=== PATIENT | female | born 1950 | race Caucasian/White ===

== ENCOUNTER 2016-11-24 20:48 | Inpatient (IN) | payer MEDICARE, OTHER ==
[~2016-11-24] VITALS: Ht 160 cm; Wt 89.0 kg
[2016-11-24] MEDS ORDERED: ONDANSETRON 4 MG INJ IV ONE (21:00)
[2016-11-24] MEDS ORDERED: HYDROmorphONE 2 MG/ML SYG IV ONE (21:00)
[2016-11-24 21:22] LABS: ADD SCAN DIFF NO
[2016-11-24 21:24] LABS: BASOPHILS % 0.4 % (0.0-2.0); EOSINOPHILS # 0.3 10^3/ul (0.0-0.5); EOSINOPHILS % 3.6 % (0.0-7.0); HEMATOCRIT 36.8 % (37.0-47.0); HEMOGLOBIN 11.4 g/dl (12.0-16.0); LYMPHOCYTES # 2.5 10^3/ul (0.8-2.9); LYMPHOCYTES % 27.5 % (15.0-51.0); MEAN CORPUSCULAR HEMOGLOBIN 19.7 pg (29.0-33.0); MEAN CORPUSCULAR VOLUME 63.4 fl (82.0-101.0); MEAN PLATELET VOLUME 10.6 fl (7.4-10.4); MONOCYTE # 0.6 10^3/ul (0.3-0.9); MONOCYTES % 6.8 % (0.0-11.0); NEUTROPHIL # 5.7 10^3/ul (1.6-7.5); NEUTROPHILS % 61.2 % (39.0-77.0); PLATELET COUNT 290 10^3/UL (140-415); RED CELL DISTRIBUTION WIDTH 15.8 % (11.5-14.5); WHITE BLOOD COUNT 9.3 10^3/ul (4.8-10.8)
[2016-11-24 21:35] LABS: INR 1.01; PROTIME 13.3 Sec (12.2-14.2)
[2016-11-24 21:47] LABS: POTASSIUM 3.3 mmol/L (3.5-5.1)
[2016-11-24 21:49] LABS: CREATININE 1.03 mg/dl (0.44-1.00)
--- NOTE | 2016-11-24 22:02 | RADRPT ---
PROCEDURE: Pelvis x-ray CLINICAL INDICATION: Blunt trauma to the pelvis TECHNIQUE: Single AP view of the pelvis performed. COMPARISON: None FINDINGS: Normal mineralization, architecture and alignment. No fracture or osseous lesion identified. There are no significant degenerative changes. Unremarkable soft tissues. Degenerative changes in the lumbar spine. Mild symmetric degenerative ch anges in the sacroiliac joints. IMPRESSION: No acute fracture or subluxation. RPTAT: [facility] Physician Cynthia Date Time Electronically viewed and signed by David Aguillon Physician on 11/24/2016 22:02 RS/
--- NOTE | 2016-11-24 22:05 | RADRPT ---
PROCEDURE: Left femur CLINICAL INDICATION: Pain status post trauma TECHNIQUE: AP and lateral views COMPARISON: None available FINDINGS: An acute, closed, comminuted oblique fracture of the left proximal to mid femoral diaphysis is prese nt. 100% overriding is present with foreshortening and medial displacement of the more proximal of fracture fragment is noted. The left hip joint is well maintained. The mineralization is normal. M ild joint space narrowing is noted of the patellofemoral, medial and lateral joint compartments. IMPRESSION: 1. Acute, closed, comminuted, oblique fracture of the left proximal to mid femoral diaphysis with f oreshortening and a 100% overriding. 2. Intact left hip joint 3. Mild tricompartmental osteoarthritis of the left knee A call report was made to SHAR Brown at 11/24/2016 10:03:57 PM following the completion of the examination by the undersigned. RPTAT: HDC .Shanon Schafer MD, MD Date Time Electronically viewed and signed by .Shanon Schafer MD, on 11/24/2016 22:05 .C/
--- NOTE | 2016-11-24 22:07 | RADRPT ---
PROCEDURE: XR Chest. CLINICAL INDICATION: Pain status post trauma TECHNIQUE: AP Portable chest. COMPARISON: None available FINDINGS: The soft tissues and bones are remarkable for bilateral acromioclavicular osteoarthropathy and thora cic spondylosis. No focal infiltrates, masses, or effusions are noted. The mediastinum and heart a re normal. No pneumothorax is present. IMPRESSION: 1. No radiographic evidence for acute cardiopulmonary disease. 2. Thoracic spondylosis and bilateral acromioclavicular osteoarthropathy. RPTAT: HDC .Shanon Schafer MD, Date Time Electronically viewed and signed by .Shanon Schafer MD, on 11/24/2016 22:06 .C/
--- NOTE | 2016-11-24 22:19 | ERA ---
ER Documentation Chief Complaint Date/Time DATE: 11/24/16 TIME: 22:15 Chief Complaint S/P FALL HPI 65-year-old female history of hypertension who presents with a mechanical trip and fall. She landed on some bricks along her mid left femur. The patient now has deformity, severe pain, worse with movement. No head trauma or loss of consciousness, no neck pain. No prodrome of chest pain or shortness of breath. ROS All systems reviewed and are negative except as per history of present illness. PMhx/Soc Hx Alcohol Use: No Hx Substance Use: No Hx Tobacco Use: No Smoking Status: Unknown if ever smoked FmHx Family History: No diabetes Physical Exam Vitals Vital Signs Date Time Temp Pulse Resp B/P Pulse Ox O2 Delivery O2 Flow Rate FiO2 11/24/16 20:59 98.1 89 20 164/74 96 Physical Exam Airway is intact Bilateral breath sounds Strong distal pulses No obvious deficits General: Well developed, well nourished, no acute distress Head: Normocephalic, atraumatic Eyes: Pupils equally reactive, EOM intact ENT: Moist mucous membranes Neck: Supple, no lymphadenopathy, No midline tenderness, deformities, step-offs to the cervical spine, full active and passive range of motion without midline pain. Respiratory: Lungs clear bilaterally, no distress, no chest wall tenderness, no crepitus Cardiovascular: RRR, no murmurs, rubs, or gallops Abdominal: Soft, non-tender, non-distended, no peritoneal signs, pelvis is stable : Deferred MSK: Deformity noted to the mid femur, no break in the skin. Soft compartments , 2+ dorsalis pedis and posterior tibial pulses. No tenderness to the mid thoracolumbar spine Neurologic: Alert and oriented, moving all extremities, normal speech, no focal weakness, no cerebellar signs Skin: No ecchymoses or bruising to the chest or abdomen Psych: Normal mood Result Diagram: 11/24/16211411/24/162114 Results 24 hrs Laboratory Tests Test 11/24/16 21:15 Activated Partial Thromboplast Time 24.0Sec Anion Gap 15 Basophils # 0.010^3/ul Basophils % 0.4% Blood Urea Nitrogen 21mg/dl Calcium Level 9.0mg/dl Carbon Dioxide Level 30mmol/L Chloride Level 100mmol/L Creatinine 1.03mg/dl Eosinophils # 0.310^3/ul Eosinophils % 3.6% Glucose Level 100mg/dl Hematocrit 36.8% Hemoglobin 11.4g/dl INR International Normalized Ratio 1.01 Lymphocytes # 2.510^3/ul Lymphocytes % 27.5% Mean Corpuscular Hemoglobin 19.7pg Mean Corpuscular Hemoglobin Concent 31.0g/dl Mean Corpuscular Volume 63.4fl Mean Platelet Volume 10.6fl Monocytes # 0.610^3/ul Monocytes % 6.8% Neutrophils # 5.710^3/ul Neutrophils % 61.2% Nucleated Red Blood Cells # 0.010^3/ul Nucleated Red Blood Cells % 0.0/100WBC Platelet Count 99566^3/UL Potassium Level 3.3mmol/L Prothrombin Time 13.3Sec Prothrombin Time Ratio 1.0 Red Blood Count 5.8010^6/ul Red Cell Distribution Width 15.8% Sodium Level 142mmol/L White Blood Count 9.310^3/ul Current Medications Medications (Trade) Dose Ordered Sig/Jesica Route PRN Reason Start Time Stop Time Status Last Admin Dose Admin Hydromorphone HCl (Dilaudid) 1 mg ONCE ONCE IV 11/24/16 21:00 11/24/16 21:01 DC 11/24/16 21:11 Ondansetron HCl (Zofran Inj) 4 mg ONCE ONCE IV 11/24/16 21:00 11/24/16 21:01 DC 11/24/16 21:12 Ondansetron HCl (Zofran Inj) 4 mg BRIDGE ORDER PRN IV NAUSEA AND/OR VOMITING 11/24/16 22:30 11/25/16 22:29 Acetaminophen (Tylenol Tab) 650 mg ER BRIDGE PRN PO MILD PAIN/FEVER 11/24/16 22:30 11/25/16 22:29 Procedures/MDM EKG, MONITORS, & DIAGNOSTIC IMAGING: EKG: I reviewed and interpreted a 12-lead EKG. Rhythm: Normal sinus rhythm Ectopy: None Intervals: No abnormalities ST segments: No elevations or depressions T waves: No contiguous inversions Chest x-ray: I reviewed and interpreted a 1 view of the chest Mediastinum: No enlargement Cardiac silhouette: No cardiomegaly Airspace: Clear lung nelson bilaterally without evidence of pneumothorax Bones: No evidence of fracture X-ray left femur: I reviewed and interpreted multiple views of the x-ray Bones: Displaced, shortened, overlapping mid femur fracture Soft tissue: No evidence of foreign body LAB INTERPRETATION: No leukocytosis MEDICAL DECISION MAKING: Patient presents with mechanical trip and fall. No head injury. The patient does not meet high-risk criteria and based on NEXUS cervical spine criteria there is no indication for cervical spine imaging at this time. The patient has evidence of a closed left femur fracture. Soft compartments, neurovascularly intact. ER COURSE: Patient has been given pain control medication. The patient was placed in a position of comfort. Difficult immobilization technique given patient's body habitus and location of fracture. At this time the patient has no significant movement when laying still. The patient has been given pain medication she will be admitted for surgical management. Preoperative laboratory testing and diagnostic imaging was initiated. I kept the patient and/or family informed of laboratory and diagnostic imaging results throughout the emergency room course. DISPOSITION PLAN: Medical surgical admission CONSULTATION: Accepting care team and consultations: I discussed the current laboratory data, diagnostic imaging and emergency care provided. Admitting team: Dr. Silverman Admitting team indication: Insurance directed Consulting services: On-call orthopedic surgeon Dr. Danny Rios has been notified. Departure Diagnosis: Primary Impression: Closed left femoral fracture Qualified Code: S72.322A - Closed displaced transverse fracture of shaft of left femur, initial encounter Condition: Stable JASKARAN MYLES MD Nov 24, 2016 22:19
[2016-11-24] MEDS ORDERED: ONDANSETRON 4 MG INJ IV PRN (22:30)
[2016-11-24] MEDS ORDERED: ACETAMINOPHEN 325 MG TAB PO PRN (22:30)
[2016-11-24] MEDS ORDERED: HYDROmorphONE 1 MG/ML SYG IV STA ×2 (22:37→22:39)
[2016-11-24] MEDS ORDERED: HYDROmorphONE 1 MG/ML SYG IV ONE (23:45)
[2016-11-25] VITALS (17 sets, daily range): BP systolic 106–170; BP diastolic 55–88; PULSE 76–106; RESP 7–20; Ht 160 cm; Wt 89.0 kg
[2016-11-25] MEDS ORDERED: ALBUTEROL/IPRATROPIUM (NEB) 3 ML AMP HHN PRN
[2016-11-25] MEDS ORDERED: HYDROCODONE/APAP (5/325) TAB PO PRN
[2016-11-25] MEDS ORDERED: ACETAMINOPHEN 325 MG TAB PO PRN
[2016-11-25] MEDS ORDERED: NA PHOSPHATE/BIPHOS 133 ML ENEMA PR PRN
[2016-11-25] MEDS ORDERED: NITROGLYCERIN (SL) 0.4 MG TAB SL PRN
[2016-11-25] MEDS ORDERED: DOCUSATE SODIUM 100 MG CAP PO PRN
[2016-11-25] MEDS ORDERED: NACL 0.9% 3 ML SYG IV SCH
[2016-11-25] MEDS ORDERED: LORAZEPAM 2 MG INJ IV PRN
[2016-11-25] MEDS: SOD CHLORIDE 0.45% 1,000 ML IV SCH ×2 (00:40→12:40)
[2016-11-25 02:10] LABS: INR 1.02; PROTIME 13.4 Sec (12.2-14.2)
[2016-11-25 02:11] LABS: PARTIAL THROMBOPLASTIN TIME 23.5 Sec (25.0-35.0)
--- NOTE | 2016-11-25 05:06 | HP ---
DATE OF ADMISSION: 11/24/2016 The patient was seen and examined by me on 11/24/2016 at 10:30 p.m. A 65-year-old female. CHIEF COMPLAINT: Status post fall. HISTORY OF PRESENT ILLNESS: A 65-year-old female with past medical history of hypertension who pres ents with status post fall, mechanical trip. Apparently, the patient was at home and landed on some bricks when she fell along her left leg, specifically her left femur. She presented with severe pa in became worse with movement and now it was noted to have a deformity in the emergency room. Denie s any head pain, no loss of consciousness. No neck stiffness. No chest pain or shortness of breath . No upper or lower GI bleeding, no fevers or chills. When she came into the ER today, she had nesha ging study performed, specifically a left femur x-ray that did show acute closed comminuted oblique fracture of the left proximal to mid femoral diaphysis with foreshortening and 100% overriding loose and intact left hip joint however, and mild tricompartmental osteoarthritis of the left knee and th e orthopedic surgeon was contacted in the ER as well to come and evaluate the patient. PAST MEDICAL HISTORY: As stated above. ALLERGIES: NO KNOWN DRUG ALLERGIES. HOME MEDICATIONS: Unknown. PAST SURGICAL HISTORY: Unknown. SOCIAL HISTORY: Negative for smoking, drinking, or IV drug abuse today. PHYSICAL EXAMINATION: VITAL SIGNS: T-max 98.1, pulse 89, respirations 20, blood pressure 164/74, saturating at % zelda m air. GENERAL: The patient is lying in bed, no acute distress. HEENT: Pupils equal, round, and reactive to light. Extraocular muscles intact. NECK: Supple, no thyromegaly. LUNGS: Clear to auscultation bilaterally. CARDIOVASCULAR: S1, S2 heard. No rubs or gallops. ABDOMEN: Soft, nontender, nondistended. Normal bowel sounds. MUSCULOSKELETAL: On the left femur, there is a deformity noted in the mid femur, but no break in th e skin. Pulses are intact. No lower extremity edema bilaterally. NEUROLOGIC: No focal deficits. LABORATORIES: CBC is normal. Basic metabolic panel shows sodium 142, potassium 3.3, chloride 100, CO2 30, BUN 21, creatinine 1.03, glucose 100. Free T4 is normal. Coags are essentially normal. In addition to the images mentioned above, there was a chest x-ray that was no radiographic evidence f or any acute cardiopulmonary disease. Pelvic x-ray showed no acute fractures or subluxation. ASSESSMENT AND PLAN: A 65-year-old female status post mechanical fall with left femur fracture. 1. Left hip pain secondary to left femur fracture after falling down at home, mechanical fall. We will admit the patient to med/surg floor, keep her n.p.o., give her IV fluids, check TSH, A1c, lipid panel, pain control medication of [place] and morphine p.r.n. Will get orthopedic surgery consult. Discussed the options of surgical care versus conservative treatment. 2. Hypertension. Blood pressure stable. Continue hydralazine p.r.n. 3. Gastrointestinal prophylaxis, proton pump inhibitor. 4. Deep vein thrombosis prophylaxis, heparin subQ. Will also get physical therapy and occupational therapy consults. Dictated By: CLYDE TINOCO Conf#: [id number] DID#: [id number]
[2016-11-25 05:44] LABS: CHOL/HDL RATIO 4.6 RATIO
[2016-11-25 05:45] LABS: ADD SCAN DIFF NO
[2016-11-25] MEDS ORDERED: PANTOPRAZOLE 40 MG INJ IV SCH (06:00)
[2016-11-25 06:11] LABS: THYROID STIMULATING HORMONE 4.22 MIU/L (0.465-4.680)
[2016-11-25 06:29] LABS: ABNORMAL IP MESSAGE 1; BASOPHIL # 0.1 10^3/ul (0.0-0.1); BASOPHILS % 0.5 % (0.0-2.0); EOSINOPHILS # 0.1 10^3/ul (0.0-0.5); EOSINOPHILS % 0.6 % (0.0-7.0); HEMATOCRIT 34.3 % (37.0-47.0); HEMOGLOBIN 10.4 g/dl (12.0-16.0); LYMPHOCYTES # 1.8 10^3/ul (0.8-2.9); LYMPHOCYTES % 17.6 % (15.0-51.0); MEAN CORPUSCULAR HEMOGLOBIN 19.5 pg (29.0-33.0); MEAN CORPUSCULAR HGB CONC 30.3 g/dl (32.0-37.0); MEAN CORPUSCULAR VOLUME 64.2 fl (82.0-101.0); MEAN PLATELET VOLUME 11.4 fl (7.4-10.4); MONOCYTE # 0.8 10^3/ul (0.3-0.9); MONOCYTES % 7.7 % (0.0-11.0); NEUTROPHIL # 7.3 10^3/ul (1.6-7.5); NEUTROPHILS % 73.2 % (39.0-77.0); PLATELET COUNT 274 10^3/UL (140-415); RED BLOOD COUNT 5.34 10^6/ul (4.20-5.40); WHITE BLOOD COUNT 9.9 10^3/ul (4.8-10.8)
[2016-11-25 06:36] LABS: POTASSIUM 3.8 mmol/L (3.5-5.1)
[2016-11-25 06:39] LABS: CREATININE 0.99 mg/dl (0.44-1.00)
[2016-11-25 06:40] LABS: CALCIUM 8.7 mg/dl (8.4-10.2); MAGNESIUM 1.9 mg/dl (1.7-2.5); PHOSPHORUS 5.4 mg/dl (2.5-4.9)
[2016-11-25] MEDS ORDERED: SEVOFLURANE 15 MIN ONE (07:00)
[2016-11-25] MEDS ORDERED: CEFAZOLIN 1 GM INJ ONE (07:00)
[2016-11-25] MEDS ORDERED: HEPARIN 5,000 UNIT/0.5 ML SYG SC SCH (09:00)
[2016-11-25] MEDS: morphine 2 MG INJ IV PRN ×5 (09:26→23:33)
--- NOTE | 2016-11-25 12:07 | PN ---
Date/Time of Note Date/Time of Note DATE: 11/25/16 TIME: 12:04 Assessment/Plan VTE Prophylaxis VTE Prophylaxis Intervention: heparin Lines/Catheters IV Catheter Type (from Nrsg): Saline Lock Urinary Cath still in place: Yes Reason Cath still needed: other (indicate) (hip fracture ) Assessment/Plan Assessment/Plan 1. Left hip pain secondary to left femur fracture after falling down at home, mechanical fall. pt is medically cleared to have surgery, no h/o CAD, no h/o stroke ,will order CXR and EKG for pre op 2. Hypertension. Blood pressure stable. Continue hydralazine p.r.n. 3. Gastrointestinal prophylaxis, proton pump inhibitor. 4. Deep vein thrombosis prophylaxis, heparin subQ. Will also get physical therapy and occupational therapy consults after ortho evaluation Subjective 24 Hr Interval Summary Free Text/Dictation pt stable, awaiting orthopedic evaluation Exam/Review of Systems Vital Signs Vitals Vital Signs Date Time Temp Pulse Resp B/P Pulse Ox O2 Delivery O2 Flow Rate FiO2 11/25/16 07:43 98.0 79 16 157/67 99 Room Air 11/25/16 00:15 2.0 Intake and Output 11/24/16 11/24/16 11/25/16 15:00 23:00 07:00 Intake Total 300 ml Output Total 500 ml Balance -200 ml Exam GENERAL: The patient is lying in bed, no acute distress. HEENT: Pupils equal, round, and reactive to light. Extraocular muscles intact. NECK: Supple, no thyromegaly. LUNGS: Clear to auscultation bilaterally. CARDIOVASCULAR: S1, S2 heard. No rubs or gallops. ABDOMEN: Soft, nontender, nondistended. Normal bowel sounds. MUSCULOSKELETAL: On the left femur, there is a deformity noted in the mid femur , but no break in the skin. Pulses are intact. No lower extremity edema bilaterally. NEUROLOGIC: No focal deficits. Results Result Diagram: 11/25/16 0457 11/25/16 0457 Results 24 hrs Laboratory Tests Test 11/24/16 21:15 11/24/16 23:45 11/25/16 01:30 11/25/16 04:57 Activated Partial Thromboplast Time 24.0 L 23.5 L Anion Gap 15 15 Basophils # 0.0 0.1 Basophils % 0.4 0.5 Blood Urea Nitrogen 21 H 23 H Calcium Level 9.0 8.7 Carbon Dioxide Level 30 30 Chloride Level 100 101 Creatinine 1.03 H 0.99 Eosinophils # 0.3 0.1 Eosinophils % 3.6 0.6 Glucose Level 100 116 Hematocrit 36.8 L 34.3 L Hemoglobin 11.4 L 10.4 L INR International Normalized Ratio 1.01 1.02 Lymphocytes # 2.5 1.8 Lymphocytes % 27.5 17.6 Mean Corpuscular Hemoglobin 19.7 L 19.5 L Mean Corpuscular Hemoglobin Concent 31.0 L 30.3 L Mean Corpuscular Volume 63.4 L 64.2 L Mean Platelet Volume 10.6 H 11.4 H Monocytes # 0.6 0.8 Monocytes % 6.8 7.7 Neutrophils # 5.7 7.3 Neutrophils % 61.2 73.2 Nucleated Red Blood Cells # 0.0 0.0 Nucleated Red Blood Cells % 0.0 0.0 Platelet Count 290 274 Potassium Level 3.3 L 3.8 Prothrombin Time 13.3 13.4 Prothrombin Time Ratio 1.0 1.0 Red Blood Count 5.80 H 5.34 Red Cell Distribution Width 15.8 H 16.0 H Sodium Level 142 142 White Blood Count 9.3 9.9 Free Thyroxine 1.01 Cholesterol Level 175 Cholesterol/HDL Ratio 4.6 HDL Cholesterol 38 Hemoglobin A1c 5.7 LDL Cholesterol, Calculated 108 Magnesium Level 1.9 Phosphorus Level 5.4 H Thyroid Stimulating Hormone (TSH) 4.220 Triglycerides Level 145 Medications Medications Current Medications Ondansetron HCl (Zofran Inj) 4 mg Q6H PRN IV NAUSEA AND/OR VOMITING; Start at 00:00 Acetaminophen (Tylenol Tab) 650 mg Q6H PRN PO PAIN LEVEL 1-3 OR FEVER; Start at 00:00 Acetaminophen/ Hydrocodone Bitart (Proctor (5/325)) 1 tab Q6H PRN PO MODERATE PAIN LEVEL 4-6; Start 11/25/16 at 00:00 Morphine Sulfate (morphine) 2 mg Q4H PRN IV SEVERE PAIN LEVEL 7-10 Last administered on 11/25/16t 09:26; Admin Dose 2 MG; Start 11/25/16 at 00:00 Docusate Sodium (Colace) 100 mg Q12H PRN PO CONSTIPATION; Start 11/25/16 at 00: 00 Magnesium Hydroxide (Milk Of Mag) 30 ml DAILY PRN PO CONSTIPATION; Start at 00:00 Sodium Biphosphate/ Sodium Phosphate (Fleet Enema) 133 ml DAILY PRN RI CONSTIPATION; Start 11/25/16 at 00:00 Pantoprazole (Protonix Iv) 40 mg DAILY@06 IV Last administered on 11/25/16 05: 54; Admin Dose 40 MG; Start 11/25/16 at 06:00 Heparin Sodium (Porcine) 5000 unit 5,000 unit Q12 SC ; Start 11/25/16 at 09:00 Sodium Chloride (1/2 NS) 1,000 ml @ 75 mls/hr [id number] IV Last administered on 11/25/16 00:40; Admin Dose 75 MLS/HR; Start 11/24/16 at 23:45 Lorazepam (Ativan) 0.5 mg Q6H PRN IV ANXIETY; Start 11/25/16 at 00:00 Hydralazine HCl (Apresoline) 10 mg Q6H PRN IV ELEVATED BLOOD PRESSURE; Start at 00:00 Nitroglycerin (Nitroglycerin (Sl Tab) 0.4 Mg) 1 tab Q5M PRN SL ANGINA; Start at 00:00 JUAN J CASEY MD Nov 25, 2016 12:07
[2016-11-25] MEDS ORDERED: DEXTROSE 5%-0.45% NACL 1,000 ML IV SCH (15:00)
[2016-11-25] MEDS ORDERED: HEPARIN 5,000 UNIT/0.5 ML SYG SC ONE (15:00)
[2016-11-25] MEDS ORDERED: POLYMYXIN/BACITRACIN 1L IRRIG ONE (18:30)
[2016-11-25] MEDS ORDERED: LIDOCAINE 2% (SDV) 5 ML INJ ONE (18:44)
[2016-11-25] MEDS ORDERED: PROPOFOL 20 ML ONE (18:44)
[2016-11-25] MEDS ORDERED: ROCURONIUM 50 MG INJ ONE (18:44)
--- NOTE | 2016-11-25 19:07 | CONS ---
DATE OF ADMISSION: 11/24/2016 DATE OF CONSULTATION: 11/25/2016 CHIEF COMPLAINT: Left leg pain. HISTORY OF PRESENT ILLNESS: This is a 65-year-old female who had a fall last night and was unable t o ambulate. She denies any loss of consciousness. She is complaining of pain in the left thigh. S he states her pain is sharp. She has no other complaints. PAST MEDICAL HISTORY: Hypertension and hyperlipidemia. MEDICATIONS: 1. Lisinopril. 2. Atorvastatin. PAST SURGICAL HISTORY: None. SOCIAL HISTORY: She denies alcohol, tobacco or drug use. FAMILY HISTORY: Noncontributory. ALLERGIES: NO KNOWN DRUG ALLERGIES. VITAL SIGNS: Temperature 98.1, pulse of 89, blood pressure 164/74. GENERAL: The patient is lying in bed. She is in no acute distress. She is alert and oriented x3. LEFT LOWER EXTREMITY: There are no open wounds. She is tender to palpation over the lateral aspect of the thigh. She has 5/5 function of tibialis anterior, gastroc soleus and extensor hallucis long us. She has a palpable dorsalis pedis pulse. X-rays of the left femur demonstrated hopefully displaced fracture of the femoral shaft. There is shortening. There are no other fractures or dislocations. A 65-year-old female who sustained a mechanical fall resulting in a left closed-displaced oblique fr acture of the proximal shaft. PLAN: She will be non-weightbearing. I discussed the risks associated with surgery. The risks of s urgery include but not limited to infection, deep venous thrombosis, pulmonary embolism, damage to n eurovascular structures, nonunion, malunion, need for revision surgery, need for hardware removal, a rthritis, risks associated with anesthesia, heart attack, stroke, need for blood transfusion and johnson n . The patient understood the risks and would like to proceed with surgery. She will be cons ented for a left hip open reduction internal fixation with intramedullary nailing. All questions we re answered to her satisfaction. She will be placed on SCDs bilaterally. She will receive Ancef IV , 1 gram prior to OR with 2 additional doses postoperatively. She will receive aspirin 325 mg p.o. b.i.d. for 6 weeks for DVT prophylaxis postoperatively. Dictated By: PEPPER LEWIS/CHARMAINE Conf#: [id number] DID#: [id number]
--- NOTE | 2016-11-25 19:19 | RADRPT ---
Echocardiogram Report Patient Name: RAMY SALGADO Gender: Female Date: 1950 Study Date: 25-Nov-2016 Shot Coat Tender: Luna Kaminski RDCS Location: [id number] Ref. Physician: CLYDE SAUER Quality: Technically Difficult Study Procedures: Transthoracic echocardiogram with complete 2D, M-Mode, and doppler examination. Indications: Chest Pain. 2D/M Mode Doppler Measurement Value Normal Ranges Measurement Value Normal Ranges LVIDd 2D 3.7 3.5 - 5.6 cm AV Peak Wallace 1.4 m/sec LVIDs 2D 1.6 2.1 - 4.1 cm AV Peak PG 8.0 mmHg FS 2D 56.8 % LVOT Peak Wallace 0.9 m/sec LVPWd 2D 0.9 0.6 - 1.1 cm LVOT Peak PG 4.0 mmHg IVSd 2D 1.0 0.6 - 1.1 cm MV E Peak Wallace 0.6 m/sec IVS/LVPW 2D 1.0 MV A Peak Wallace 0.8 m/sec AoR Diam 2D 2.9 2.0 - 3.7 cm MV E/A 0.8 LA/Ao 2D 1 0 - 1 MV Decel Time 243 msec EDV 2D 49.8 cm3 MV E/A 0.8 ESV 2D 4.0 cm3 LA Dimen 2D 3.0 2.3 - 4.0 cm Findings Left Ventricle: Normal left ventricular systolic function. Normal left ventricular cavity size. Normal left ventricular wall thickness. Ejection fraction is visually estimated at 55 %. Tissue Doppler/Mitral Doppler indices are consistent with impaired relaxation (Stage I diastolic dysfunction). Right Ventricle: Normal right ventricular size. Normal right ventricular systolic function. Left Atrium: The left atrium is normal in size. Right Atrium: The right atrium is normal in size. Mitral Valve: Normal appearance and function of the mitral valve with trace physiologic regurgitation. Aortic Valve: Normal appearance of the aortic valve. No significant aortic stenosis or insufficiency. Tricuspid Valve: Normal appearance of the tricuspid valve. Unable to obtain RVSP due to minimal presence of tricuspid regurgitation. Pulmonic Valve: Normal pulmonic valve appearance. Pericardium: Normal pericardium with no significant pericardial effusion. Aorta: Normal aortic root. IVC: Normal size and normal respiratory collapse consistent with normal right atrial pressure. Conclusions 1.Normal left ventricular systolic function. Normal left ventricular cavity size. Normal left ventricular wall thickness. Ejection fraction is visually estimated at 55 %. Tissue Doppler/Mitral Doppler indices are consistent with impaired relaxation (Stage I diastolic dysfunction). 2.Normal right ventricular size. Normal right ventricular systolic function. 3.Normal appearance and function of the mitral valve with trace physiologic regurgitation. 4.Normal appearance of the tricuspid valve. Unable to obtain RVSP due to minimal presence of tricuspid regurgitation. Electronically Signed By: Elliott Hernandez 25-Nov-2016 19:18:14 -0700 Patient Name: RAMY SALGADO Study Date: 25-Nov-[id number]
[2016-11-25] MEDS ORDERED: hydrALAzine 20 MG INJ IV PRN ×2 (19:30)
[2016-11-25] MEDS ORDERED: FENTAnyl 50 MCG/ML VIAL IV PRN ×3 (19:30)
[2016-11-25] MEDS ORDERED: HYDROmorphONE (0.2 MG/ML) 10ML SYG IV PRN ×2 (19:30)
[2016-11-25] MEDS ORDERED: ONDANSETRON 4 MG INJ IV PRN ×2 (19:30)
[2016-11-25] MEDS ORDERED: MEPERIDINE 25 MG INJ IV PRN (19:30)
[2016-11-25] MEDS ORDERED: METOCLOPRAMIDE 10 MG INJ IV PRN (19:30)
[2016-11-25] MEDS ORDERED: EPHEDrine SULFATE 50 MG/5 ML SYG IV PRN (19:30)
[2016-11-25] MEDS ORDERED: LABETALOL HCL 20MG INJ IV PRN (19:30)
[2016-11-25] MEDS ORDERED: ONDANSETRON 4 MG INJ ONE (21:03)
[2016-11-25] MEDS ORDERED: DEXAMETHASONE 4 MG/ML 1 ML INJ ONE (21:03)
[2016-11-25] MEDS ORDERED: LABETALOL HCL 20MG INJ ONE (21:27)
[2016-11-25] MEDS: HYDROmorphONE (0.2 MG/ML) 10ML SYG IV PRN ×3 (22:00→22:31)
[2016-11-25] MEDS: SOD CHLORIDE 0.9% 1,000 ML IV SCH (23:32)
[2016-11-26] VITALS (8 sets, daily range): BP systolic 115–173; BP diastolic 56–81; PULSE 81–89; RESP 18–20
[2016-11-26] MEDS: DIPHENHYDRAMINE 50 MG INJ IV PRN ×2 (00:48→21:37)
[2016-11-26] MEDS: CEFAZOLIN 1 GM/50 ML (PMX) 50 ML IVPB SCH ×2 (03:14→10:30)
[2016-11-26] MEDS: PANTOPRAZOLE (EC) 40 MG TAB PO SCH (05:46)
[2016-11-26 07:15] LABS: ADD SCAN DIFF NO
--- NOTE | 2016-11-26 07:27 | OPR ---
DATE OF OPERATION: 11/25/2016 SURGEON: Liliana Glover PUBLISHING DIRECTOR: None. PREOPERATIVE DIAGNOSIS: Left closed midshaft femur fracture. POSTOPERATIVE DIAGNOSIS: Left closed midshaft femur fracture. OPERATION PERFORMED: 1. Left femur intramedullary nailing, CPT code 75974. 2. Interpretation of left hip x-rays, 2 views. 3. Interposition of left femur x-rays, 2 views. ANESTHESIOLOGIST: Dr. Rivera ANESTHESIA: General. ESTIMATED BLOOD LOSS: 100 mL. COMPLICATIONS: None. SPECIMEN: None. DISPOSITION: To PACU in stable condition. IMPLANT USED: Allan reconstruction nail, size 9 x 320 mm, with a 42.5-mm proximal screw at 45 mm a nd 47.5-mm distal locking screw. INDICATIONS FOR PROCEDURE: This is a 65-year-old female who had a fall, resulting in a left closed oblique displaced femoral shaft fracture. The risks, benefits, and alternatives of surgical interve ntion were discussed with the patient and informed consent was obtained. The risks of surgery include, but are not limited to, infection, deep venous thrombosis, pulmonary e mbolism, malunion, nonunion, need for revision surgery, painful hardware, need for hardware removal, heart attack, stroke, need for blood transfusion, risks associated with anesthesia, malrotation and even . DETAILS OF PROCEDURE: The patient was met in the preoperative suite. The correct operative site was confirmed and marked. She was then brought into the operating room. After induction of general an esthesia, she was placed in the supine position on the fracture table. At this point the fracture w as reduced by closed reduction on the fracture table and confirmed with AP and lateral views of the left femur. AP and lateral views of the left hip were also taken and no fractures of the femoral ne ck were identified. The left lower extremity was then prepped and draped in the usual sterile fashi on. Before starting, a timeout was taken to identify the correct operative site and confirm the preo perative antibiotics consisting of IV Ancef were administered. At this point, a 2-cm incision was made proximal to the greater trochanter and the guidewire was latasha felix at the tip of the greater trochanter in line with the femoral shaft in both AP and lateral views . It was then advanced to the lesser trochanter. The soft tissue protection sleeve was advanced ov er the guidewire and the opening reamer was then advanced over the guidewire. At this point the bal l tip guidewire was then placed in the femoral shaft under fluoroscopic guidance in both AP and late ral views down to the knee. The fracture was noted to be reduced, with cortical contact on both AP and lateral views. The wire was measured to 331 mm. Sequential reaming was begun with a 9-mm reame r, going up to a 10.5-mm reamer for a size 9 x 320-mm nail. The nail was then advanced over the tammie dewire under fluoroscopic guidance. The trocar and was placed for the proximal locking screw and a small skin incision was made. The drill was then advanced bicortically and measured to 42.5 mm. Th e appropriate size screw was then placed. Using a perfect deering method, 2 stab incisions were made for the distal locking screw and the appropriate size screws were then placed bicortically. At thi s point, final images were taken and saved, which demonstrated the nail to be in the appropriate pos ition. The fracture was reduced, with cortical contact in both AP and lateral views. There were no complications. All counts were correct. The patient was awakened and taken to the postoperative c are unit in stable condition. POSTOPERATIVE CARE: The patient will be weightbearing as tolerated. She will receive 2 additional d oses of IV Ancef. She will be placed on aspirin 325 mg p.o. b.i.d. for 6 weeks. She will work with physical therapy. Upon discharge she will follow up in my office within 2 weeks postoperatively. Dictated By: LILIANA WATKINS/CHARMAINE Conf#: [id number] DID#: [id number]
[2016-11-26 07:31] LABS: POTASSIUM 3.8 mmol/L (3.5-5.1)
[2016-11-26 07:33] LABS: CREATININE 0.95 mg/dl (0.44-1.00)
[2016-11-26 07:35] LABS: LYMPHOCYTES # 0.8 10^3/ul (0.8-2.9); LYMPHOCYTES % 8.7 % (15.0-51.0); MEAN CORPUSCULAR HEMOGLOBIN 19.4 pg (29.0-33.0); MEAN CORPUSCULAR VOLUME 64.8 fl (82.0-101.0); MEAN PLATELET VOLUME 10.9 fl (7.4-10.4); MONOCYTE # 0.3 10^3/ul (0.3-0.9); MONOCYTES % 3.2 % (0.0-11.0); NEUTROPHIL # 7.6 10^3/ul (1.6-7.5); NEUTROPHILS % 87.8 % (39.0-77.0); PLATELET COUNT 242 10^3/UL (140-415); RED BLOOD COUNT 4.63 10^6/ul (4.20-5.40); WHITE BLOOD COUNT 8.7 10^3/ul (4.8-10.8)
[2016-11-26 07:35] LABS: CALCIUM 7.9 mg/dl (8.4-10.2)
[2016-11-26] MEDS: SOD CHLORIDE 0.9% 1,000 ML IV SCH ×2 (08:00→17:03)
[2016-11-26] MEDS: ASPIRIN 325 MG TAB PO SCH ×2 (08:22→20:20)
--- NOTE | 2016-11-26 08:51 | RADRPT ---
PROCEDURE: XR Femur. CLINICAL INDICATION: Fracture. Left leg pain. Postop. TECHNIQUE: AP and lateral views of the left femur were performed. COMPARISON: 11/24/2016. FINDINGS: There is a new jean claude in the shaft of the femur with a locking screw proximally and 2 locking screws di stally. Alignment of the fracture of the midshaft of the femur is anatomic. There is no other new fracture and there is no dislocation. Gas is present in the soft tissues at the site of the recent surgery. Skin juan are also noted l aterally. There are degenerative changes of the left hip and left knee with joint space narrowing and osteophy ani. There is no lytic or blastic lesion. IMPRESSION: 1. Satisfactory postoperative appearance of the left femur. RPTAT: QQ .Chris Malloy MD, MD Date Time Electronically viewed and signed by .Chris Malloy MD, MD on 11/26/2016 08:50 .R/
--- NOTE | 2016-11-26 08:52 | RADRPT ---
PROCEDURE: Intraoperative imaging of the left femur with fluoroscopy. CLINICAL INDICATION: Left leg pain. Fracture. Intraoperative. TECHNIQUE: 9 images of the left femur were obtained in the operating room with an image intensifie r. No radiologist was in attendance. 171 seconds of fluoroscopy time was used. COMPARISON: 11/24/2016. FINDINGS: There is a new jean claude in the shaft of the femur with a locking screw proximally and 2 locking screws di stally. Alignment of the fracture of the midshaft of the femur is anatomic. There is no other new fracture and there is no dislocation. There are degenerative changes of the left hip and left knee with joint space narrowing and osteophy ani. IMPRESSION: 1. Satisfactory intraoperative appearance of the left femur. RPTAT: QQ .Chris Malloy MD, Date Time Electronically viewed and signed by .Chris Malloy MD, on 11/26/2016 08:52 .R/
[2016-11-26] MEDS: morphine 2 MG INJ IV PRN ×2 (10:31→20:21)
[2016-11-26 11:13] LABS: IRON 11 ug/dl (35-150)
[2016-11-26 11:23] LABS: TOTAL IRON BINDING CAPACITY 262 ug/dl (241-421)
[2016-11-26] MEDS: HYDROCODONE/APAP (5/325) TAB PO PRN (12:49)
--- NOTE | 2016-11-26 18:12 | PN ---
DATE: 11/26/2016 SUBJECTIVE DATA: Complains of left hip pain; however, better controlled. Blood pressure slightly on the higher side. OBJECTIVE DATA: VITAL SIGNS: Temperature 98.4, pulse rate 91, respiratory rate 18, blood pressure 173/81,, oxygen saturation 92% on room air. GENERAL: This is an obese female patient lying in bed in no apparent distress. HEENT: Head normocephalic and atraumatic. Eyes: Anicteric sclerae. Conjunctivae clear. ENT: Nasal septum is midline. Oral mucosa is moist. NECK: Supple. No JVD noticed. RESPIRATORY: Bilaterally clear to auscultation. No adventitious breath sounds. No use of accessory muscles of respiration. CARDIAC: Regular rate and rhythm. No murmurs heard. ABDOMEN: Soft, nontender and nondistended. Bowel sounds positive in all 4 quadrants. GENITOURINARY: The patient has a Ness catheter in place. EXTREMITIES: No cyanosis, no clubbing, no edema. Left hip surgical dressing is clean, dry and intact. Peripheral pulses palpable. NEUROLOGIC: The patient is awake, alert and oriented. Cranial nerves are grossly intact. LABORATORY AND DIAGNOSTIC DATA: WBC 8.7, hemoglobin 9.0, hematocrit 30.0, platelet count 242, potassium 3.8, chloride 98, carbon dioxide 30, anion gap 16 , BUN 9, creatinine 0.95, glucose 138, calcium 7.9. ASSESSMENT AND PLAN: 1. Left closed mid-shaft femur fracture secondary to mechanical fall. Status post left femur intramedullary nailing on 11/25/2016. Continue pain control. Continue physical therapy. 2. Essential hypertension. Continue routine antihypertensives. PRN for any high systolic blood pressure readings. 3. Microcytic hypochromic anemia. Etiology unclear. Will monitor the H&H closely. Will do an iron panel on this patient. 4. Obesity. Hemoglobin A1c 5.7. Fasting lipid panel was satisfactory. Will advise weight reduction. 5. Fluid, electrolytes and nutrition. Continue regular diet. 6. Deep venous thrombosis prophylaxis will resume as per orthopedic surgery. 7. Gastrointestinal prophylaxis. Protonix. 8. Plan. Continue pain control. Continue physical therapy. The case was discussed with Dr. Manning. MICHAEL MANNING MD, AM/CHARMAINE Conf#: [id number] DID#: [id number] CC: CLYDE SAUER;*EndCC* MTDD
[2016-11-26] MEDS ORDERED: IRON1TAB PO (20:01)
[2016-11-26] MEDS ORDERED: MAGN400C PO (20:01)
[2016-11-26] MEDS ORDERED: LORA1TAB PO (20:01)
[2016-11-26] MEDS ORDERED: ESOM40CA PO (20:01)
[2016-11-26] MEDS ORDERED: VENL150T PO (20:01)
[2016-11-26] MEDS: NISOLDIPINE 8.5 MG PO SCH (20:20)
[2016-11-26] MEDS ORDERED: [UNRECOGNIZED DRUG - OTHER] PO (22:41)
[2016-11-26] MEDS ORDERED: CYANOCOBALAMIN IM (22:41)
[2016-11-26] MEDS ORDERED: CHOL400T10 PO (22:41)
[2016-11-26] MEDS ORDERED: MELO7.5O PO (22:41)
[2016-11-26] MEDS ORDERED: FOLI-49 PO (22:41)
[2016-11-27] VITALS: BP 142/54; PULSE 78
[2016-11-27] MEDS: SOD CHLORIDE 0.9% 1,000 ML IV SCH ×2 (04:00→13:39)
[2016-11-27] MEDS: HYDROCODONE/APAP (5/325) TAB PO PRN ×2 (04:24→17:22)
[2016-11-27 05:22] LABS: MAGNESIUM 2.1 mg/dl (1.7-2.5); PHOSPHORUS 3.3 mg/dl (2.5-4.9)
[2016-11-27] MEDS: PANTOPRAZOLE (EC) 40 MG TAB PO SCH (06:34)
[2016-11-27 06:50] LABS: ADD SCAN DIFF NO
[2016-11-27 07:14] LABS: ABNORMAL IP MESSAGE 1; BASOPHILS % 0.2 % (0.0-2.0); EOSINOPHILS # 0.1 10^3/ul (0.0-0.5); EOSINOPHILS % 0.7 % (0.0-7.0); HEMATOCRIT 24.1 % (37.0-47.0); HEMOGLOBIN 7.3 g/dl (12.0-16.0); LYMPHOCYTES # 2.2 10^3/ul (0.8-2.9); LYMPHOCYTES % 25.2 % (15.0-51.0); MEAN CORPUSCULAR HEMOGLOBIN 19.4 pg (29.0-33.0); MEAN CORPUSCULAR HGB CONC 30.3 g/dl (32.0-37.0); MEAN CORPUSCULAR VOLUME 64.1 fl (82.0-101.0); MEAN PLATELET VOLUME 11.5 fl (7.4-10.4); MONOCYTE # 0.9 10^3/ul (0.3-0.9); MONOCYTES % 10.1 % (0.0-11.0); NEUTROPHIL # 5.6 10^3/ul (1.6-7.5); NEUTROPHILS % 63.6 % (39.0-77.0); PLATELET COUNT 199 10^3/UL (140-415); RED BLOOD COUNT 3.76 10^6/ul (4.20-5.40); RED CELL DISTRIBUTION WIDTH 15.9 % (11.5-14.5); WHITE BLOOD COUNT 8.7 10^3/ul (4.8-10.8)
[2016-11-27 07:47] VITALS: BP 147/65; RESP 18
[2016-11-27 08:34] LABS: POTASSIUM 3.2 mmol/L (3.5-5.1)
[2016-11-27 08:36] LABS: CREATININE 1.16 mg/dl (0.44-1.00)
[2016-11-27 08:37] LABS: CALCIUM 8.1 mg/dl (8.4-10.2)
[2016-11-27] MEDS ORDERED: POTASSIUM CHLORIDE (SR) 20 MEQ TAB PO STA (09:57)
[2016-11-27] MEDS: ASPIRIN 325 MG TAB PO SCH ×2 (10:09→20:25)
[2016-11-27] MEDS: NISOLDIPINE 8.5 MG PO SCH ×2 (10:10→20:25)
[2016-11-27 11:28] LABS: ADD SCAN DIFF NO
[2016-11-27 11:31] LABS: BASOPHILS % 0.2 % (0.0-2.0); EOSINOPHILS # 0.2 10^3/ul (0.0-0.5); EOSINOPHILS % 2.3 % (0.0-7.0); HEMATOCRIT 24.8 % (37.0-47.0); HEMOGLOBIN 7.6 g/dl (12.0-16.0); LYMPHOCYTES # 2.2 10^3/ul (0.8-2.9); LYMPHOCYTES % 26.1 % (15.0-51.0); MEAN CORPUSCULAR HEMOGLOBIN 19.7 pg (29.0-33.0); MEAN CORPUSCULAR HGB CONC 30.6 g/dl (32.0-37.0); MEAN CORPUSCULAR VOLUME 64.4 fl (82.0-101.0); MEAN PLATELET VOLUME 11.4 fl (7.4-10.4); MONOCYTE # 0.6 10^3/ul (0.3-0.9); MONOCYTES % 6.7 % (0.0-11.0); NEUTROPHIL # 5.3 10^3/ul (1.6-7.5); NEUTROPHILS % 64.5 % (39.0-77.0); PLATELET COUNT 227 10^3/UL (140-415); RED BLOOD COUNT 3.85 10^6/ul (4.20-5.40); RED CELL DISTRIBUTION WIDTH 15.6 % (11.5-14.5); WHITE BLOOD COUNT 8.2 10^3/ul (4.8-10.8)
[2016-11-27] MEDS: VENLAFAXINE 75 MG TABLET PO SCH (11:37)
[2016-11-27] MEDS: FOLIC ACID 1 MG TAB PO SCH (11:37)
[2016-11-27] MEDS: MAGNESIUM HYDROXIDE 30ML CUP PO PRN (11:46)
[2016-11-27] MEDS: KETOROLAC 15 MG INJ IV PRN ×2 (11:46→21:07)
--- NOTE | 2016-11-27 16:48 | PN ---
Date/Time of Note Date/Time of Note DATE: 11/27/16 TIME: 16:44 Assessment/Plan VTE Prophylaxis VTE Prophylaxis Intervention: heparin Lines/Catheters IV Catheter Type (from Nrs): Saline Lock Urinary Cath still in place: Yes Reason Cath still needed: other (indicate) (Post of hip surgery ) Assessment/Plan Assessment/Plan 1. left femur fracture s/p Left femur intramedullary nailing- POD #1, Hb dropped to 7.6 2. Post op anemia Hb 7.6- Hb dropped from 11.2 on admission to 7.6 2. Hypertension 3. Gastrointestinal prophylaxis, proton pump inhibitor. 4. Deep vein thrombosis prophylaxis, heparin subQ. repeat CBC showed Hb 7.6, BP stable, will follow up on AM CBC to decide for Transfusion Acute rehab evaluation for patient Subjective 24 Hr Interval Summary Free Text/Dictation s/p Left femur intramedullary nailing- POD #1, Hb dropped to 7.6 Exam/Review of Systems Vital Signs Vitals Vital Signs Date Time Temp Pulse Resp B/P Pulse Ox O2 Delivery O2 Flow Rate FiO2 11/27/16 07:47 97.5 88 18 147/65 96 11/26/16 05:32 2.0 11/25/16 23:25 Nasal Cannula Intake and Output 11/26/16 11/26/16 11/27/16 15:00 23:00 07:00 Intake Total 1030 ml 1160 ml 700 ml Output Total 300 ml 1250 ml 1700 ml Balance 730 ml -90 ml -1000 ml Exam GENERAL: The patient is lying in bed, no acute distress. HEENT: Pupils equal, round, and reactive to light. Extraocular muscles intact. NECK: Supple, no thyromegaly. LUNGS: Clear to auscultation bilaterally. CARDIOVASCULAR: S1, S2 heard. No rubs or gallops. ABDOMEN: Soft, nontender, nondistended. Normal bowel sounds. MUSCULOSKELETAL: LLE with dressing on NEUROLOGIC: No focal deficits. Results Result Diagram: 11/27/16 1110 11/27/16 0415 Results 24 hrs Laboratory Tests Test 11/27/16 04:15 11/27/16 11:10 Anion Gap 14 Basophils # 0.0 0.0 Basophils % 0.2 0.2 Blood Urea Nitrogen 29 H Calcium Level 8.1 L Carbon Dioxide Level 29 Chloride Level 102 Creatinine 1.16 H Eosinophils # 0.1 0.2 Eosinophils % 0.7 2.3 Glucose Level 116 Hematocrit 24.1 L 24.8 L Hemoglobin 7.3 L 7.6 L Lymphocytes # 2.2 2.2 Lymphocytes % 25.2 26.1 Magnesium Level 2.1 Mean Corpuscular Hemoglobin 19.4 L 19.7 L Mean Corpuscular Hemoglobin Concent 30.3 L 30.6 L Mean Corpuscular Volume 64.1 L 64.4 L Mean Platelet Volume 11.5 H 11.4 H Monocytes # 0.9 0.6 Monocytes % 10.1 6.7 Neutrophils # 5.6 5.3 Neutrophils % 63.6 64.5 Nucleated Red Blood Cells # 0.0 0.0 Nucleated Red Blood Cells % 0.0 0.0 Phosphorus Level 3.3 # Platelet Count 199 227 Potassium Level 3.2 L Red Blood Count 3.76 L 3.85 L Red Cell Distribution Width 15.9 H 15.6 H Sodium Level 142 White Blood Count 8.7 8.2 Medications Medications Current Medications Ondansetron HCl (Zofran Inj) 4 mg Q6H PRN IV NAUSEA AND/OR VOMITING; Start at 00:00 Acetaminophen (Tylenol Tab) 650 mg Q6H PRN PO PAIN LEVEL 1-3 OR FEVER; Start at 00:00 Morphine Sulfate (morphine) 2 mg Q4H PRN IV SEVERE PAIN LEVEL 7-10 Last administered on 11/26/16 20:21; Admin Dose 2 MG; Start 11/25/16 at 00:00 Docusate Sodium (Colace) 100 mg Q12H PRN PO CONSTIPATION Last administered on 19:04; Admin Dose 100 MG; Start 11/25/16 at 00:00 Magnesium Hydroxide (Milk Of Mag) 30 ml DAILY PRN PO CONSTIPATION Last administered on 11/27/16 11:46; Admin Dose 30 ML; Start 11/25/16 at 00:00 Sodium Biphosphate/ Sodium Phosphate (Fleet Enema) 133 ml DAILY PRN [place] CONSTIPATION; Start 11/25/16 at 00:00 Heparin Sodium (Porcine) (Heparin (5000 Units/0.5 ml)) 5,000 unit Q12 SC ; Start 11/25/16 at 09:00; Status Future Hold Lorazepam (Ativan) 0.5 mg Q6H PRN IV ANXIETY Last administered on 11/26/16 21: 35; Admin Dose 0.5 MG; Start 11/25/16 at 00:00 Hydralazine HCl (Apresoline) 10 mg Q6H PRN IV ELEVATED BLOOD PRESSURE; Start at 00:00 Nitroglycerin (Nitroglycerin (Sl Tab) 0.4 Mg) 1 tab Q5M PRN SL ANGINA; Start at 00:00 Pantoprazole 40 mg 40 mg DAILY@06 PO Last administered on 11/27/16 06:34; Admin Dose 40 MG; Start 11/26/16 at 06:00 Sodium Chloride (NS) 1,000 ml @ 100 mls/hr Q10H IV Last administered on 23:32; Admin Dose 100 MLS/HR; Start 11/25/16 at 22:00 Aspirin (Aspirin) 325 mg BID PO Last administered on 11/27/16 10:09; Admin Dose 325 MG; Start 11/26/16 at 09:00 Tramadol HCl (Ultram) 50 mg TID PRN PO PAIN; Start 11/25/16 at 22:00 Ketorolac Tromethamine (Toradol) 15 mg Q6H PRN IV PAIN Last administered on 11:46; Admin Dose 15 MG; Start 11/25/16 at 22:00; Stop 11/28/16 at 21:59 Acetaminophen/ Hydrocodone Bitart ([place] (5/325)) 1 tab Q6H PRN PO PAIN LEVEL 1 -3 Last administered on 11/27/16 04:24; Admin Dose 1 TAB; Start 11/25/16 at 22: 00 Diphenhydramine HCl (Benadryl) 25 mg Q6H PRN IV ITCHING Last administered on 21:37; Admin Dose 25 MG; Start 11/26/16 at 00:30 Patient Own Medication 1 ea BID PO Last administered on 11/27/16 10:10; Admin Dose 1 EA; Start 11/26/16 at 21:00 Folic Acid (Folic Acid) 1 mg DAILY PO Last administered on 11/27/16 11:37; Admin Dose 1 MG; Start 11/27/16 at 11:00 Venlafaxine HCl (Effexor) 150 mg DAILY PO Last administered on 11/27/16t 11:37 ; Admin Dose 150 MG; Start 11/27/16 at 11:00 Lorazepam (Ativan) 1 mg HS PRN PO SLEEP; Start 11/27/16 at 10:00 JUAN J CASEY MD Nov 27, 2016 16:47
[2016-11-27 19:59] VITALS: BP 123/61; RESP 20
[2016-11-27] MEDS: LORAZEPAM 1 MG TAB PO PRN (21:07)
[2016-11-28] MEDS: PANTOPRAZOLE (EC) 40 MG TAB PO SCH (05:32)
[2016-11-28] MEDS: morphine 2 MG INJ IV PRN ×2 (05:35→20:37)
[2016-11-28 06:27] LABS: ADD SCAN DIFF NO
[2016-11-28 06:54] LABS: BASOPHILS % 0.4 % (0.0-2.0); EOSINOPHILS # 0.4 10^3/ul (0.0-0.5); HEMOGLOBIN 7.6 g/dl (12.0-16.0); LYMPHOCYTES # 2.2 10^3/ul (0.8-2.9); LYMPHOCYTES % 25.6 % (15.0-51.0); MEAN CORPUSCULAR HEMOGLOBIN 19.6 pg (29.0-33.0); MEAN CORPUSCULAR HGB CONC 30.4 g/dl (32.0-37.0); MEAN CORPUSCULAR VOLUME 64.4 fl (82.0-101.0); MEAN PLATELET VOLUME 11.5 fl (7.4-10.4); MONOCYTE # 0.6 10^3/ul (0.3-0.9); MONOCYTES % 7.3 % (0.0-11.0); NEUTROPHIL # 5.1 10^3/ul (1.6-7.5); NEUTROPHILS % 61.1 % (39.0-77.0); PLATELET COUNT 214 10^3/UL (140-415); RED BLOOD COUNT 3.88 10^6/ul (4.20-5.40); RED CELL DISTRIBUTION WIDTH 15.9 % (11.5-14.5); WHITE BLOOD COUNT 8.4 10^3/ul (4.8-10.8)
[2016-11-28 07:00] VITALS: BP 134/63; RESP 18
[2016-11-28 07:10] LABS: POTASSIUM 3.5 mmol/L (3.5-5.1)
[2016-11-28 07:12] LABS: CREATININE 0.73 mg/dl (0.44-1.00)
[2016-11-28 07:13] LABS: CALCIUM 7.9 mg/dl (8.4-10.2)
[2016-11-28] MEDS: SOD CHLORIDE 0.9% 1,000 ML IV SCH ×3 (10:00→20:00)
[2016-11-28] MEDS: ASPIRIN 325 MG TAB PO SCH ×2 (10:35→20:37)
[2016-11-28] MEDS: NISOLDIPINE 8.5 MG PO SCH ×2 (10:35→21:00)
[2016-11-28] MEDS: VENLAFAXINE 75 MG TABLET PO SCH (10:35)
[2016-11-28] MEDS: FOLIC ACID 1 MG TAB PO SCH (10:36)
[2016-11-28] MEDS: HYDROCODONE/APAP (5/325) TAB PO PRN ×2 (10:37→18:47)
--- NOTE | 2016-11-28 12:40 | PN ---
Date/Time of Note Date/Time of Note DATE: 11/28/16 TIME: 12:38 Assessment/Plan VTE Prophylaxis VTE Prophylaxis Intervention: SCD's Lines/Catheters IV Catheter Type (from Nrsg): Saline Lock Urinary Cath still in place: Yes Reason Cath still needed: other (indicate) (d/c eddy ) Assessment/Plan Assessment/Plan 1. left femur fracture s/p Left femur intramedullary nailing- POD #1, Hb dropped to 7.6 2. Post op anemia Hb 7.6- Hb dropped from 11.2 on admission to 7.6 2. Hypertension 3. Gastrointestinal prophylaxis, proton pump inhibitor. 4. Deep vein thrombosis prophylaxis, heparin subQ. repeat CBC showed Hb 7.6, BP stable, will follow up on AM CBC to decide for Transfusion Acute rehab evaluation for patient Subjective 24 Hr Interval Summary Free Text/Dictation c/o pain, Hb 7.6, afebrile, Exam/Review of Systems Vital Signs Vitals Vital Signs Date Time Temp Pulse Resp B/P Pulse Ox O2 Delivery O2 Flow Rate FiO2 11/28/16 07:00 98.3 90 18 134/63 98 11/26/16 05:32 2.0 11/25/16 23:25 Nasal Cannula Intake and Output 11/27/16 11/27/16 11/28/16 15:00 23:00 07:00 Intake Total 680 ml 500 ml Output Total 1600 ml 1200 ml Balance -920 ml -700 ml Exam GENERAL: The patient is lying in bed, no acute distress. HEENT: Pupils equal, round, and reactive to light. Extraocular muscles intact. NECK: Supple, no thyromegaly. LUNGS: Clear to auscultation bilaterally. CARDIOVASCULAR: S1, S2 heard. No rubs or gallops. ABDOMEN: Soft, nontender, nondistended. Normal bowel sounds. MUSCULOSKELETAL: LLE with dressing on NEUROLOGIC: No focal deficits. Results Result Diagram: 11/28/16 0549 11/28/16 0549 Results 24 hrs Laboratory Tests Test 11/28/16 05:49 Anion Gap 12 Basophils # 0.0 Basophils % 0.4 Blood Urea Nitrogen 18 # Calcium Level 7.9 L Carbon Dioxide Level 31 Chloride Level 103 Creatinine 0.73 Eosinophils # 0.4 Eosinophils % 5.0 Glucose Level 112 Hematocrit 25.0 L Hemoglobin 7.6 L Lymphocytes # 2.2 Lymphocytes % 25.6 Mean Corpuscular Hemoglobin 19.6 L Mean Corpuscular Hemoglobin Concent 30.4 L Mean Corpuscular Volume 64.4 L Mean Platelet Volume 11.5 H Monocytes # 0.6 Monocytes % 7.3 Neutrophils # 5.1 Neutrophils % 61.1 Nucleated Red Blood Cells # 0.0 Nucleated Red Blood Cells % 0.0 Platelet Count 214 Potassium Level 3.5 Red Blood Count 3.88 L Red Cell Distribution Width 15.9 H Sodium Level 142 White Blood Count 8.4 Medications Medications Current Medications Ondansetron HCl (Zofran Inj) 4 mg Q6H PRN IV NAUSEA AND/OR VOMITING; Start at 00:00 Acetaminophen (Tylenol Tab) 650 mg Q6H PRN PO PAIN LEVEL 1-3 OR FEVER; Start at 00:00 Morphine Sulfate (morphine) 2 mg Q4H PRN IV SEVERE PAIN LEVEL 7-10 Last administered on 11/28/16 05:35; Admin Dose 2 MG; Start 11/25/16 at 00:00 Docusate Sodium (Colace) 100 mg Q12H PRN PO CONSTIPATION Last administered on 19:04; Admin Dose 100 MG; Start 11/25/16 at 00:00 Magnesium Hydroxide (Milk Of Mag) 30 ml DAILY PRN PO CONSTIPATION Last administered on 11/27/16 11:46; Admin Dose 30 ML; Start 11/25/16 at 00:00 Sodium Biphosphate/ Sodium Phosphate (Fleet Enema) 133 ml DAILY PRN [place] CONSTIPATION; Start 11/25/16 at 00:00 Heparin Sodium (Porcine) (Heparin (5000 Units/0.5 ml)) 5,000 unit Q12 SC ; Start 11/25/16 at 09:00; Status Future Hold Lorazepam (Ativan) 0.5 mg Q6H PRN IV ANXIETY Last administered on 11/26/16 21: 35; Admin Dose 0.5 MG; Start 11/25/16 at 00:00 Hydralazine HCl (Apresoline) 10 mg Q6H PRN IV ELEVATED BLOOD PRESSURE; Start at 00:00 Nitroglycerin (Nitroglycerin (Sl Tab) 0.4 Mg) 1 tab Q5M PRN SL ANGINA; Start at 00:00 Pantoprazole 40 mg 40 mg DAILY@06 PO Last administered on 11/28/16 05:32; Admin Dose 40 MG; Start 11/26/16 at 06:00 Sodium Chloride (NS) 1,000 ml @ 100 mls/hr Q10H IV Last administered on 23:32; Admin Dose 100 MLS/HR; Start 11/25/16 at 22:00 Aspirin (Aspirin) 325 mg BID PO Last administered on 11/28/16 10:35; Admin Dose 325 MG; Start 11/26/16 at 09:00 Tramadol HCl (Ultram) 50 mg TID PRN PO PAIN; Start 11/25/16 at 22:00 Ketorolac Tromethamine (Toradol) 15 mg Q6H PRN IV PAIN Last administered on 21:07; Admin Dose 15 MG; Start 11/25/16 at 22:00; Stop 11/28/16 at 21:59 Acetaminophen/ Hydrocodone Bitart ([place] (5/325)) 1 tab Q6H PRN PO PAIN LEVEL 1 -3 Last administered on 11/28/16 10:37; Admin Dose 1 TAB; Start 11/25/16 at 22: 00 Diphenhydramine HCl (Benadryl) 25 mg Q6H PRN IV ITCHING Last administered on 21:37; Admin Dose 25 MG; Start 11/26/16 at 00:30 Patient Own Medication 1 ea BID PO Last administered on 11/28/16 10:35; Admin Dose 1 EA; Start 11/26/16 at 21:00 Folic Acid (Folic Acid) 1 mg DAILY PO Last administered on 11/28/16 10:36; Admin Dose 1 MG; Start 11/27/16 at 11:00 Venlafaxine HCl (Effexor) 150 mg DAILY PO Last administered on 11/28/16 10:35 ; Admin Dose 150 MG; Start 11/27/16 at 11:00 Lorazepam (Ativan) 1 mg HS PRN PO SLEEP Last administered on 11/27/16 21:07; Admin Dose 1 MG; Start 11/27/16 at 10:00 JUAN J CASEY MD Nov 28, 2016 12:40
[2016-11-28 19:27] VITALS: BP 168/74; RESP 18
[2016-11-28] MEDS: LORAZEPAM 1 MG TAB PO PRN (20:37)
[2016-11-29 05:36] LABS: ADD SCAN DIFF NO
[2016-11-29 05:40] LABS: BASOPHILS % 0.4 % (0.0-2.0); EOSINOPHILS # 0.6 10^3/ul (0.0-0.5); EOSINOPHILS % 6.5 % (0.0-7.0); HEMOGLOBIN 7.5 g/dl (12.0-16.0); LYMPHOCYTES # 2.3 10^3/ul (0.8-2.9); LYMPHOCYTES % 27.7 % (15.0-51.0); MEAN CORPUSCULAR HEMOGLOBIN 19.4 pg (29.0-33.0); MEAN CORPUSCULAR VOLUME 64.6 fl (82.0-101.0); MEAN PLATELET VOLUME 11.8 fl (7.4-10.4); MONOCYTE # 0.6 10^3/ul (0.3-0.9); MONOCYTES % 7.4 % (0.0-11.0); NEUTROPHIL # 4.8 10^3/ul (1.6-7.5); NEUTROPHILS % 57.3 % (39.0-77.0); PLATELET COUNT 237 10^3/UL (140-415); RED BLOOD COUNT 3.87 10^6/ul (4.20-5.40); RED CELL DISTRIBUTION WIDTH 15.7 % (11.5-14.5); WHITE BLOOD COUNT 8.4 10^3/ul (4.8-10.8)
[2016-11-29] MEDS: PANTOPRAZOLE (EC) 40 MG TAB PO SCH (05:47)
[2016-11-29] MEDS: HYDROCODONE/APAP (5/325) TAB PO PRN ×3 (05:48→19:24)
[2016-11-29 05:56] VITALS: BP 142/82; PULSE 89
[2016-11-29] MEDS: NISOLDIPINE 8.5 MG PO SCH ×2 (05:56→20:17)
[2016-11-29 06:00] LABS: POTASSIUM 3.6 mmol/L (3.5-5.1)
[2016-11-29] MEDS: SOD CHLORIDE 0.9% 1,000 ML IV SCH ×3 (06:00→22:15)
[2016-11-29 06:02] LABS: CREATININE 0.78 mg/dl (0.44-1.00)
[2016-11-29 06:04] LABS: CALCIUM 8.1 mg/dl (8.4-10.2)
[2016-11-29 08:44] VITALS: BP 151/68; RESP 16
[2016-11-29] MEDS: FOLIC ACID 1 MG TAB PO SCH (09:38)
[2016-11-29] MEDS: VENLAFAXINE 75 MG TABLET PO SCH (09:38)
[2016-11-29] MEDS: ASPIRIN 325 MG TAB PO SCH ×2 (09:38→20:17)
[2016-11-29] MEDS: traMADol 50 MG TAB PO PRN (09:50)
[2016-11-29 19:45] VITALS: BP 142/66; RESP 20
[2016-11-29] MEDS: LORAZEPAM 1 MG TAB PO PRN (20:30)
--- NOTE | 2016-11-29 20:43 | PN ---
Date/Time of Note Date/Time of Note DATE: 11/29/16 TIME: 20:42 Assessment/Plan VTE Prophylaxis VTE Prophylaxis Intervention: heparin Lines/Catheters IV Catheter Type (from Nrs): Peripheral IV Assessment/Plan Assessment/Plan 1. left femur fracture s/p Left femur intramedullary nailing- POD #1, Hb dropped to 7.6 2. Post op anemia Hb 7.6- Hb dropped from 11.2 on admission to 7.6 2. Hypertension 3. Gastrointestinal prophylaxis, proton pump inhibitor. 4. Deep vein thrombosis prophylaxis, heparin subQ. repeat CBC showed Hb 7.6, BP stable, will follow up on AM CBC to decide for Transfusion Acute rehab evaluation for patient Subjective 24 Hr Interval Summary Free Text/Dictation Hb 7.6, still feelign weak and tired, did not participate in PT Exam/Review of Systems Vital Signs Vitals Vital Signs Date Time Temp Pulse Resp B/P Pulse Ox O2 Delivery O2 Flow Rate FiO2 11/29/16 19:45 98.4 87 20 142/66 97 11/26/16 05:32 2.0 11/25/16 23:25 Nasal Cannula Intake and Output 11/28/16 11/28/16 11/29/16 15:00 23:00 07:00 Intake Total 1360 ml 400 ml Output Total 2100 ml 370 ml Balance -740 ml 30 ml Exam GENERAL: The patient is lying in bed, no acute distress. HEENT: Pupils equal, round, and reactive to light. Extraocular muscles intact. NECK: Supple, no thyromegaly. LUNGS: Clear to auscultation bilaterally. CARDIOVASCULAR: S1, S2 heard. No rubs or gallops. ABDOMEN: Soft, nontender, nondistended. Normal bowel sounds. MUSCULOSKELETAL: LLE with dressing on NEUROLOGIC: No focal deficits. Results Result Diagram: 11/29/16 0417 11/29/16 0417 Results 24 hrs Laboratory Tests Test 11/29/16 04:17 Anion Gap 13 Basophils # 0.0 Basophils % 0.4 Blood Urea Nitrogen 18 Calcium Level 8.1 L Carbon Dioxide Level 33 H Chloride Level 100 Creatinine 0.78 Eosinophils # 0.6 H Eosinophils % 6.5 Glucose Level 99 Hematocrit 25.0 L Hemoglobin 7.5 L Lymphocytes # 2.3 Lymphocytes % 27.7 Mean Corpuscular Hemoglobin 19.4 L Mean Corpuscular Hemoglobin Concent 30.0 L Mean Corpuscular Volume 64.6 L Mean Platelet Volume 11.8 H Monocytes # 0.6 Monocytes % 7.4 Neutrophils # 4.8 Neutrophils % 57.3 Nucleated Red Blood Cells # 0.0 Nucleated Red Blood Cells % 0.0 Platelet Count 237 Potassium Level 3.6 Red Blood Count 3.87 L Red Cell Distribution Width 15.7 H Sodium Level 142 White Blood Count 8.4 Medications Medications Current Medications Ondansetron HCl (Zofran Inj) 4 mg Q6H PRN IV NAUSEA AND/OR VOMITING; Start at 00:00 Acetaminophen (Tylenol Tab) 650 mg Q6H PRN PO PAIN LEVEL 1-3 OR FEVER; Start at 00:00 Morphine Sulfate (morphine) 2 mg Q4H PRN IV SEVERE PAIN LEVEL 7-10 Last administered on 11/28/16 20:37; Admin Dose 2 MG; Start 11/25/16 at 00:00 Docusate Sodium (Colace) 100 mg Q12H PRN PO CONSTIPATION Last administered on 19:04; Admin Dose 100 MG; Start 11/25/16 at 00:00 Magnesium Hydroxide (Milk Of Mag) 30 ml DAILY PRN PO CONSTIPATION Last administered on 11/27/16 11:46; Admin Dose 30 ML; Start 11/25/16 at 00:00 Sodium Biphosphate/ Sodium Phosphate (Fleet Enema) 133 ml DAILY PRN [place] CONSTIPATION; Start 11/25/16 at 00:00 Heparin Sodium (Porcine) (Heparin (5000 Units/0.5 ml)) 5,000 unit Q12 SC ; Start 11/25/16 at 09:00; Status Future Hold Lorazepam (Ativan) 0.5 mg Q6H PRN IV ANXIETY Last administered on 11/26/16 21: 35; Admin Dose 0.5 MG; Start 11/25/16 at 00:00 Hydralazine HCl (Apresoline) 10 mg Q6H PRN IV ELEVATED BLOOD PRESSURE; Start at 00:00 Nitroglycerin (Nitroglycerin (Sl Tab) 0.4 Mg) 1 tab Q5M PRN SL ANGINA; Start at 00:00 Pantoprazole 40 mg 40 mg DAILY@06 PO Last administered on 11/29/16 05:47; Admin Dose 40 MG; Start 11/26/16 at 06:00 Sodium Chloride (NS) 1,000 ml @ 100 mls/hr Q10H IV Last administered on 23:32; Admin Dose 100 MLS/HR; Start 11/25/16 at 22:00 Aspirin (Aspirin) 325 mg BID PO Last administered on 11/29/16 20:17; Admin Dose 325 MG; Start 11/26/16 at 09:00 Tramadol HCl (Ultram) 50 mg TID PRN PO PAIN Last administered on 11/29/16 09: 50; Admin Dose 50 MG; Start 11/25/16 at 22:00 Acetaminophen/ Hydrocodone Bitart ([place] (5/325)) 1 tab Q6H PRN PO PAIN LEVEL 1 -3 Last administered on 11/29/16 19:24; Admin Dose 1 TAB; Start 11/25/16 at 22: 00 Diphenhydramine HCl (Benadryl) 25 mg Q6H PRN IV ITCHING Last administered on 21:37; Admin Dose 25 MG; Start 11/26/16 at 00:30 Patient Own Medication 1 ea BID PO Last administered on 11/29/16 20:17; Admin Dose 1 EA; Start 11/26/16 at 21:00 Folic Acid (Folic Acid) 1 mg DAILY PO Last administered on 11/29/16 09:38; Admin Dose 1 MG; Start 11/27/16 at 11:00 Venlafaxine HCl (Effexor) 150 mg DAILY PO Last administered on 11/29/16 09:38 ; Admin Dose 150 MG; Start 11/27/16 at 11:00 Lorazepam (Ativan) 1 mg HS PRN PO SLEEP Last administered on 11/29/16 20:30; Admin Dose 1 MG; Start 11/27/16 at 10:00 JUAN J CASEY MD Nov 29, 2016 20:43
[2016-11-29] MEDS: DIPHENHYDRAMINE 50 MG INJ IV PRN (23:58)
[2016-11-30] MEDS: HYDROCODONE/APAP (5/325) TAB PO PRN ×3 (04:43→21:32)
[2016-11-30 05:06] LABS: ADD SCAN DIFF NO
[2016-11-30 05:17] LABS: BASOPHILS % 0.5 % (0.0-2.0); EOSINOPHILS # 0.6 10^3/ul (0.0-0.5); EOSINOPHILS % 7.8 % (0.0-7.0); HEMATOCRIT 24.5 % (37.0-47.0); HEMOGLOBIN 7.4 g/dl (12.0-16.0); LYMPHOCYTES # 2.3 10^3/ul (0.8-2.9); LYMPHOCYTES % 29.1 % (15.0-51.0); MEAN CORPUSCULAR HEMOGLOBIN 19.6 pg (29.0-33.0); MEAN CORPUSCULAR HGB CONC 30.2 g/dl (32.0-37.0); MEAN CORPUSCULAR VOLUME 64.8 fl (82.0-101.0); MEAN PLATELET VOLUME 10.8 fl (7.4-10.4); MONOCYTE # 0.7 10^3/ul (0.3-0.9); MONOCYTES % 8.6 % (0.0-11.0); NEUTROPHIL # 4.2 10^3/ul (1.6-7.5); NEUTROPHILS % 53.2 % (39.0-77.0); PLATELET COUNT 249 10^3/UL (140-415); RED BLOOD COUNT 3.78 10^6/ul (4.20-5.40); RED CELL DISTRIBUTION WIDTH 15.5 % (11.5-14.5)
[2016-11-30 05:30] LABS: POTASSIUM 3.8 mmol/L (3.5-5.1)
[2016-11-30 05:33] LABS: CREATININE 0.83 mg/dl (0.44-1.00)
[2016-11-30 05:34] LABS: CALCIUM 8.4 mg/dl (8.4-10.2)
[2016-11-30 06:01] LABS: INR 0.91; PROTIME 12.3 Sec (12.2-14.2)
[2016-11-30 06:14] LABS: PARTIAL THROMBOPLASTIN TIME 26.9 Sec (25.0-35.0)
[2016-11-30] MEDS: PANTOPRAZOLE (EC) 40 MG TAB PO SCH (06:45)
[2016-11-30] MEDS: MAGNESIUM HYDROXIDE 30ML CUP PO PRN (06:48)
[2016-11-30 08:11] VITALS: BP 129/69; RESP 18
[2016-11-30] MEDS: ASPIRIN 325 MG TAB PO SCH ×2 (08:58→20:41)
[2016-11-30] MEDS: NISOLDIPINE 8.5 MG PO SCH ×2 (08:58→20:42)
[2016-11-30] MEDS: FOLIC ACID 1 MG TAB PO SCH (08:59)
[2016-11-30] MEDS: VENLAFAXINE 75 MG TABLET PO SCH (08:59)
--- NOTE | 2016-11-30 11:34 | PDOCDIS ---
Discharge Instructions CONDITION Patient Condition: Good HOME CARE INSTRUCTIONS: Special Diet: REGULAR ACTIVITY: Activity Restrictions: Special Exercises FOLLOW UP/APPOINTMENTS Appointments Follow up with Ortho as out-pt СЕРГЕЙ MARINELLI MD Nov 30, 2016 11:34
[2016-11-30] MEDS ORDERED: TRAM50TA2 PO (11:44)
[2016-11-30] MEDS: SOD CHLORIDE 0.9% 1,000 ML IV SCH ×2 (11:45→22:00)
[2016-11-30] MEDS: morphine 2 MG INJ IV PRN (14:19)
[2016-11-30] MEDS ORDERED: VITAMIN A & D 5 GM OINT PACKET TOP ONE (14:31)
[2016-11-30 19:25] VITALS: BP 135/65; RESP 18
[2016-11-30] MEDS: DIPHENHYDRAMINE 50 MG INJ IV PRN (21:28)
[2016-11-30 21:37] LABS: HEMATOCRIT 30.2 % (37.0-47.0)
[2016-11-30] MEDS: LORAZEPAM 1 MG TAB PO PRN (23:02)
[2016-11-30] MEDS: traMADol 50 MG TAB PO PRN (23:05)
[2016-12-01] MEDS: morphine 2 MG INJ IV PRN (01:53)
[2016-12-01] MEDS: PANTOPRAZOLE (EC) 40 MG TAB PO SCH (05:26)
[2016-12-01] MEDS ORDERED: PHENAZOPYRIDINE 100 MG TAB PO ONE (06:00)
[2016-12-01] MEDS: HYDROCODONE/APAP (5/325) TAB PO PRN ×2 (06:57→12:51)
[2016-12-01] MEDS: SOD CHLORIDE 0.9% 1,000 ML IV SCH (08:00)
--- NOTE | 2016-12-01 08:15 | DS ---
DATE OF ADMISSION: 11/24/2016 DATE OF DISCHARGE: 11/30/2016 CONSULTANTS: 1. Dr. Yann Jacobson 2. Dr. Mikey Renteria-Rodrigo PROCEDURE: 1. A 2-D echocardiogram which demonstrated normal left ventricular systolic function, normal left v entricular cavity size, normal left ventricular wall thickness, ejection fraction estimated at 55%, stage I diastolic dysfunction, normal right ventricular size, normal right ventricular systolic func tion, normal appearance and function of the mitral valve with trace physiologic regurg, normal appea darnell of tricuspid valve. 2. Left closed midshaft femur fracture status post open reduction internal fixation and left femur intramedullary nailing. 3. Anemia, likely postoperative, status post transfusion 1 unit of packed red blood cells. 4. Interstitial hypertension, well controlled on medical management. 5. Anxiety. Continue lorazepam. 6. Gastroesophageal reflux disease. Continue PPI. 7. Major depression. Continue Effexor. 8. Vitamin D deficiency. Continue vitamin D supplementation. MEDICATIONS: 1. Tylenol. 2. DuoNeb p.r.n. 3. Aspirin 325 mg. 4. Colace 100 mg. 5. Folic acid 1 mg. 6. [place] 5/325. 7. Lorazepam. 8. Nitroglycerin p.r.n. 9. Protonix. 10. Nisoldipine. 11. Tramadol. 12. Effexor. 13. Vitamin D. 14. Multivitamin. 15. Magnesium oxide. 16. Vitamin B12. 17. Calcium plus vitamin D. 18. Ferrous sulfate 325 mg. DIET: Low salt. CBC, BNP, magnesium in a.m. PT, OT evaluate and treat. ACTIVITY: With physical therapy. HOSPITAL COURSE: This is a pleasant 65-year-old female with past medical history of hypertension, G ERD, anemia, major depression, anxiety who unfortunately had a mechanical fall at home when she land ed on some brick on her left leg and her hip. The pain was very severe. The patient was brought in to the emergency room of [facility] where pelvic x-ray was obtained which showed n o acute fracture or subluxation. The femur x-ray showed acute closed communicated oblique fracture of the left proximal mid femoral diaphysis foreshortening at 100% overriding intact left hip joint a nd mild tricompartment osteoarthritis of the left knee. The patient was seen and evaluated by ortho pedic surgeon on a 2-D echocardiogram which showed normal ejection fraction. On 11/25/2016, the pat ient was taken to OR for left femoral intramedullary nailing. The patient tolerated the procedure w ell and was taken to recovery room, and then was admitted to med/surg where she was seen and evaluat ed by physical therapy. The patient's hemoglobin and hematocrit has been decreasing from 11.4 to 7. 4. This may have been secondary to patient was placed on heparin and aspirin. At this time, I will discontinue the heparin. The patient will be started on ferrous sulfate and will be transfused 1 u nit of packed red blood cells. After discussing the disposition, I strongly believe the patient gabriel l benefit from being transferred to acute rehab since the patient lives alone, and she will benefit from the physical therapy at that facility. Temperature 97.9, heart rate 82, respiration rate 18, b lood pressure 129/69, oxygen saturation 93%. LABORATORY: WBC 8.0, hemoglobin 7.4, hematocrit 24.5, platelets 249, MCV 64.8. Sodium 141, potassi um 3.8, chloride 99, bicarbonate 34, BUN 16, creatinine 0.83, glucose 109, calcium 8.4, hemoglobin A 1c 5.7. Iron panel; total iron 11, TIBC 262, iron saturation 4, ferritin 181. Triglyceride 145, to ender cholesterol 175, LDL 108, HDL 38. TSH 4.22. Free T4 1.01. CONDITION AT TIME OF DISCHARGE: Stable, to be transferred to acute rehabilitation. Dictated By: СЕРГЕЙ MARINELLI MD PN/NTS Conf#: [id number] DID#: [id number]
[2016-12-01 08:20] VITALS: BP 122/63; RESP 18
[2016-12-01] MEDS: ASPIRIN 325 MG TAB PO SCH (09:08)
[2016-12-01] MEDS: NISOLDIPINE 8.5 MG PO SCH (09:08)
[2016-12-01] MEDS: VENLAFAXINE 75 MG TABLET PO SCH (09:08)
[2016-12-01] MEDS: traMADol 50 MG TAB PO PRN (09:09)
[2016-12-01] MEDS: FOLIC ACID 1 MG TAB PO SCH (09:09)
[2016-12-01] MEDS ORDERED: FLUTICASONE 0.05% 16 GM NAS SPRAY NASAL PRN (11:30)
--- NOTE | 2016-12-01 14:26 | DS ---
DATE OF ADMISSION: 11/24/2016 DATE OF DISCHARGE: 12/01/2016 Please see my discharge summary which was done on 11/30/2016 CONSULTANTS: 1. Dr. Yann Jacobson 2. Dr. Mikey Renteria-Rodrigo PROCEDURES: 1. A 2D echocardiogram. 2. Left femur intramedullary nailing. DIAGNOSES 1. Left closed mid shaft femur fracture status post left femur intramedullary nailing. 2. Anemia, possibly postoperatively status post transfusion. 3. Essential hypertension, well controlled on medical management. 4. Anxiety. Continue lorazepam. 5. Gastroesophageal reflux disease. Continue PPI. 6. Major depression. Continue Effexor. 7. Vitamin D deficiency. Continue vitamin D supplementation. 8. Asthma. Continue DuoNeb as needed. MEDICATIONS: 1. Tylenol. 2. DuoNeb. 3. Aspirin 325 mg 4. Colace 100 mg. 5. Folic 1 mg. 6. [place] 5/325. 7. Lorazepam 8. Nitroglycerin. 9. Protonix. 10. Nisoldipine. 11. Tramadol. 12. Effexor. 13. Vitamin D. 14. Multivitamin. 15. Magnesium oxide. 16. B12. 17. Calcium plus vitamin D. 18. Ferrous sulfate. ALLERGIES: NO KNOWN DRUG ALLERGIES. DIET: Low salt. ACTIVITY: With physical therapy. HOSPITAL COURSE: Please see my discharge summary which was done on 11/30/2016. This is a very plea olivia 65-year-old female with past medical history of hypertension, GERD, anemia, major depression an d anxiety who unfortunately had a mechanical fall at home when she landed on some brick on her left leg and her hip. Pain was very severe, 10/10. The patient was brought into the emergency room wher e the femur x-ray showed acute closed communicated oblique fracture of the left proximal and mid fem oral diaphysis, foreshortening at 100% overriding intact left hip joint and mild tricompartmental os teoarthritis of the left knee. Orthopedic surgeon was consulted and patient was made n.p.o. and was medically optimized and patient was taken to OR for left femoral intramedullary nailing. The patient tolerated the procedure and was taken to recovery room and was transferred to med/surg w here she was seen and evaluated by physical therapy and orthopedic surgery, medical team continued t o monitor patient and patient's hemoglobin decreased from 11.4 to 7.4. This may have been secondary to patient being placed on Heparin and aspirin. The heparin was discontinued by me on 11/30/2016, and the patient was continued on aspirin for DVT prophylaxis as per orthopedic surgeon cari hou. The patient on 11/30/2016, had a hemoglobin of 7.5, hematocrit 24.5. She was typed and screened and transfused 1 unit packed red blood cells, which her hemoglobin increased to 9.0, hematocrit 30. 2. Patient tolerated transfusion and at this time, the patient has been accepted to acute rehab at [facility] for further evaluation and physical therapy. VITAL SIGNS: Temperature 98.1, pulse 80, respirations 18, blood pressure 122/60, oxygen 93% in room air. CONDITION: Stable. Dictated By: СЕРГЕЙ KIM/NTS Conf#: [id number] DID#: [id number]
[2016-12-01 17:11] LABS: ADD UMIC YES; URINE BILIRUBIN (Dip) NEGATIVE (NEGATIVE); URINE BLOOD (Dip) 1+ (NEGATIVE); URINE COLOR AMBER (YELLOW); URINE KETONES (Dip) NEGATIVE (NEGATIVE); URINE LEUKOCYTE ESTERASE (Dip) 1+ (NEGATIVE); URINE NITRITE (Dip) POSITIVE (NEGATIVE); URINE TOTAL PROTEIN (Dip) TRACE (NEGATIVE); URINE UROBILINOGEN (Dip) 2.0 E.U./dL (0.1-1.0)
[2016-12-01 17:47] LABS: BACTERIA,URINE MANY; SQUAMOUS EPITHELIAL CELL,UR FEW; URINE RBCS 0-2 /HPF (0)
== END 2016-12-01 16:04 | DRG 481 ==
LOC: E/R 20:48 → MS1 22:12
PROVIDERS: ADMIT Hospitalist; ATTEND Hospitalist
PROC: 30233N1 Transfusion of Nonautologous Red Blood Cells into Peripheral Vein, Percutaneous Approach (ICD-10-PCS; 2016-11-24)
PROC: 0QS936Z Reposition Left Femoral Shaft with Intramedullary Internal Fixation Device, Percutaneous Approach (ICD-10-PCS; principal; 2016-11-25 18:30)
DX: S72.352A Displaced comminuted fracture of shaft of left femur, initial encounter for closed fracture (principal); D62 Acute posthemorrhagic anemia; E55.9 Vitamin D deficiency, unspecified; I10 Essential (primary) hypertension; E66.9 Obesity, unspecified; K21.9 Gastro-esophageal reflux disease without esophagitis; J45.909 Unspecified asthma, uncomplicated; D50.9 Iron deficiency anemia, unspecified; F41.9 Anxiety disorder, unspecified; F32.9 Major depressive disorder, single episode, unspecified; W18.30XA Fall on same level, unspecified, initial encounter; Y92.099 Unspecified place in other non-institutional residence as the place of occurrence of the external cause; Z79.82 Long term (current) use of aspirin; Z68.34 Body mass index [BMI] 34.0-34.9, adult
CPT/HCPCS: 36430; 71010; 72170; 73550; 80048; 80061; 81001; 81003; 82728; 83036; 83540; 83735; 84100; 84439; 84443; 85014; 85018; 85025; 85610; 85730; 86850; 86900; 86901; 86920; 87086; 93005; 93306; 94664; 96374; 96375; 96376; 97110; 97116; 97163; 97530; C9113; J0690; J1100; J1170; J1200; J1885; J2060; J2270; J2405; J3010; J7030; J7042; P9016

== ENCOUNTER 2016-12-01 16:25 | Inpatient (IN) | payer MEDICARE, OTHER ==
[~2016-12-01] VITALS: Ht 160 cm; Wt 89.2 kg
[~2016-12-01 16:25] MED LIST: CHOL400T10 PO; CYANOCOBALAMIN IM; ESOM40CA PO; FOLI-49 PO; IRON1TAB PO; LORA1TAB PO; MAGN400C PO; MELO7.5O PO; TRAM50TA2 PO; VENL150T PO; [UNRECOGNIZED DRUG - OTHER] PO
[2016-12-01 16:30] VITALS: BP 130/61; PULSE 87; RESP 18
[2016-12-01 18:30] LABS: ADD UMIC YES; URINE BILIRUBIN (Dip) NEGATIVE (NEGATIVE); URINE BLOOD (Dip) TRACE (NEGATIVE); URINE COLOR AMBER (YELLOW); URINE GLUCOSE (Dip) NEGATIVE (NEGATIVE); URINE KETONES (Dip) NEGATIVE (NEGATIVE); URINE LEUKOCYTE ESTERASE (Dip) TRACE (NEGATIVE); URINE NITRITE (Dip) POSITIVE (NEGATIVE); URINE TOTAL PROTEIN (Dip) NEGATIVE (NEGATIVE); URINE UROBILINOGEN (Dip) 1.0 E.U./dL (0.1-1.0)
[2016-12-01 18:38] LABS: BACTERIA,URINE MANY; SQUAMOUS EPITHELIAL CELL,UR FEW; URINE RBCS 0-2 /HPF (0)
[2016-12-01] MEDS ORDERED: ACETAMINOPHEN 325 MG TAB PO PRN ×2 (19:00)
[2016-12-01] MEDS ORDERED: BISACODYL 10 MG SUPP PR PRN (19:00)
[2016-12-01] MEDS ORDERED: NITROGLYCERIN (SL) 0.4 MG TAB SL PRN (19:00)
[2016-12-01] MEDS ORDERED: DOCUSATE SODIUM 100 MG CAP PO PRN (19:00)
[2016-12-01] MEDS ORDERED: MAGNESIUM HYDROXIDE 30ML CUP PO PRN (19:00)
[2016-12-01] MEDS ORDERED: LACTULOSE 30ML CUP PO PRN (19:00)
[2016-12-01 19:24] VITALS: BP 146/73; RESP 20
[2016-12-01 20:00] VITALS: Ht 160 cm; Wt 89.2 kg
[2016-12-01] MEDS: LORAZEPAM 1 MG TAB PO PRN (20:14)
[2016-12-01] MEDS: HYDROCODONE/APAP (5/325) TAB PO PRN (20:14)
[2016-12-01] MEDS: SENNA TAB PO SCH (20:14)
[2016-12-01] MEDS: NISOLDIPINE 8.5 MG PO SCH (20:15)
[2016-12-02] MEDS: DIPHENHYDRAMINE 25 MG CAP PO PRN (00:47)
[2016-12-02] MEDS: traMADol 50 MG TAB PO PRN ×2 (00:48→13:26)
[2016-12-02] MEDS: ALBUTEROL/IPRATROPIUM (NEB) 3 ML AMP HHN PRN ×2 (01:25→18:17)
[2016-12-02] MEDS: morphine LIQ (20 MG/ML PO SYG) PO PRN ×2 (01:35→22:47)
[2016-12-02] MEDS: PANTOPRAZOLE (EC) 40 MG TAB PO SCH (06:06)
[2016-12-02 07:29] LABS: ADD SCAN DIFF NO
[2016-12-02 07:30] VITALS: BP 133/70; RESP 18
[2016-12-02 07:36] LABS: BASOPHILS % 0.4 % (0.0-2.0); EOSINOPHILS # 0.5 10^3/ul (0.0-0.5); EOSINOPHILS % 6.9 % (0.0-7.0); HEMATOCRIT 27.3 % (37.0-47.0); HEMOGLOBIN 8.3 g/dl (12.0-16.0); LYMPHOCYTES # 2.2 10^3/ul (0.8-2.9); MEAN CORPUSCULAR HEMOGLOBIN 20.4 pg (29.0-33.0); MEAN CORPUSCULAR HGB CONC 30.4 g/dl (32.0-37.0); MEAN CORPUSCULAR VOLUME 67.2 fl (82.0-101.0); MONOCYTE # 0.7 10^3/ul (0.3-0.9); MONOCYTES % 9.6 % (0.0-11.0); NEUTROPHIL # 4.1 10^3/ul (1.6-7.5); NEUTROPHILS % 53.1 % (39.0-77.0); PLATELET COUNT 280 10^3/UL (140-415); RED BLOOD COUNT 4.06 10^6/ul (4.20-5.40); RED CELL DISTRIBUTION WIDTH 18.1 % (11.5-14.5); WHITE BLOOD COUNT 7.7 10^3/ul (4.8-10.8)
[2016-12-02 07:50] LABS: POTASSIUM 3.6 mmol/L (3.5-5.1)
[2016-12-02 07:52] LABS: BILIRUBIN,INDIRECT 1.1 mg/dl (0-1.1); BILIRUBIN,TOTAL 1.1 mg/dl (0.2-1.3); CREATININE 0.88 mg/dl (0.44-1.00)
[2016-12-02 07:53] LABS: ALBUMIN/GLOBULIN RATIO 1.2; CALCIUM 8.2 mg/dl (8.4-10.2); TOTAL PROTEIN 5.5 g/dl (6.1-8.1)
[2016-12-02] MEDS: ASPIRIN 325 MG TAB PO SCH (09:25)
[2016-12-02] MEDS: FERROUS SULFATE (EC) 325 MG TAB PO SCH (09:25)
[2016-12-02] MEDS: NISOLDIPINE 8.5 MG PO SCH ×2 (09:25→20:34)
[2016-12-02] MEDS: CHOLECALCIFEROL 2,000 UNIT CAP PO SCH (09:26)
[2016-12-02] MEDS: HYDROCODONE/APAP (5/325) TAB PO PRN ×2 (09:26→20:34)
[2016-12-02] MEDS: FOLIC ACID 1 MG TAB PO SCH (09:26)
[2016-12-02] MEDS: VENLAFAXINE (XR) 75 MG CAP PO SCH (09:26)
[2016-12-02] MEDS: CALCIUM/VITAMIN D (500/200) TAB PO SCH (09:26)
[2016-12-02] MEDS: MULTIVITAMINS/MINERALS TAB PO SCH (09:26)
--- NOTE | 2016-12-02 12:45 | CONS ---
DATE OF ADMISSION: 12/01/2016 DATE OF CONSULTATION: Rehabilitation Post Admission Physician Evaluation REHABILITATION IMPAIRMENT CATEGORY: Left comminuted oblique proximal femoral fracture status post intramedullary nailing. ACTIVE COMORBIDITIES: 1. Severe anemia requiring transfusion. 2. Hypertension. 3. Gastroesophageal reflux disease. 4. Anxiety and depression. 5. Acute pain syndrome. 6. Impairments in self-care and mobility. HISTORY OF PRESENT ILLNESS: The patient is a very pleasant 65-year-old female who is status post a mechanical fall with resultant proximal femur fracture. Imaging studies did demonstrate acute closed comminuted oblique fracture of the proximal left femur. The patient underwent an intramedullary nailing on 2016. The patient's hospital course was notable for significant anemia to 7.4 hemoglobin, requiring transfusion. The patient has been noted to have significant impairments in self-care and mobility as compared to baseline, and has been cleared to transfer to the rehabilitation unit for comprehensive interdisciplinary rehab care. FUNCTIONAL HISTORY: Prior to recent events, she was independent in self-care tasks and mobility. Currently, the patient requires maximal assist for self-care activities, moderate assist for mobility tasks. I have reviewed the preadmission screen and the patient's current functional status is consistent with the preadmission screen. SOCIAL HISTORY: The patient lives at home with family and hopes to return there upon discharge. PAST MEDICAL HISTORY: 1. Hypertension. 2. Hyperlipidemia. 3. Gastroesophageal reflux disease. 4. Anxiety. CURRENT MEDICATIONS: 1. Albuterol inhaler. 2. Aspirin 325 p.o. daily. 3. Colace 100 mg p.o. q.12h. p.r.n. 4. Folic acid 1 mg p.o. daily. 5. [place] p.r.n. 6. Ativan p.r.n. 7. Nitroglycerin sublingual p.r.n. 8. Protonix 40 mg p.o. daily. 9. Ultram p.r.n. 10. Effexor 150 p.o. daily. ALLERGIES: THE PATIENT WITH NO KNOWN DRUG ALLERGIES. PHYSICAL EXAMINATION: VITAL SIGNS: The patient is currently afebrile with stable vital signs. HEENT: Extraocular motion intact. Oropharynx clear. NECK: Supple. LUNGS: Clear anteriorly. CARDIAC: S1, S2. ABDOMEN: Soft, nontender, positive bowel sounds. NEUROLOGIC: She is awake and alert and oriented x3. She can follow simple 1- step commands. Cranial nerves are grossly intact. She has good strength in bilateral upper extremity and the right lower extremity. Dorsiflexion and plantar flexion intact on the left. PLAN: The patient has been admitted for comprehensive interdisciplinary acute rehab and is anticipated to tolerate 3 hours of daily therapy in divided doses for at least 5/7 days a week. Treatment plan will include: 1. Physical therapy to focus on bed mobility, transfers, and household ambulation with the goal of having patient reach standby assist level. 2. Occupational therapy to focus on hygiene, grooming, dressing, bathing, and toileting activities with goal of having the patient reach standby assist level. 3. Rehabilitation nursing for carryover of therapeutic interventions, the goal of continent of bowel and bladder, the goal of pain adequately managed on oral medications. REHABILITATION BARRIER: Pain. INTERVENTION FOR BARRIER: Comprehensive interdisciplinary approach. ESTIMATED LENGTH OF STAY: 14 days. DISPOSITION GOAL: Home. I acknowledge that I performed a full physical examination on this patient within 24 hours of admission to the rehabilitation unit. I believe the patient is a good candidate for comprehensive interdisciplinary rehab care and is anticipated to make in a reasonable period of time as outlined above. Dictated By: ILDA MAIN/CHARMAINE Conf#: [id number] DID#: [id number] MTDD
--- NOTE | 2016-12-02 13:47 | HP ---
DATE OF ADMISSION: 12/01/2016 HISTORY OF PRESENT ILLNESS: This is a 65-year-old lady with history of hypertension, hyperlipidemia , anemia, major depression, admitted following a mechanical fall at home and sustaining closed commi nuted oblique fracture of the left proximal and mid femoral diaphysis. The patient was taken to OR f or intramedullary nailing and tolerated the procedure well without complication. PAST MEDICAL HISTORY: Includes anemia, essential hypertension, history of anxiety disorder, major d epression and asthma. MEDICATIONS: Per chart. ALLERGIES: NONE. SOCIAL HISTORY: Nonsmoker, no alcohol, no history of drug use. FAMILY HISTORY: Noncontributory. SYSTEMS REVIEW: A 12-point review of systems was negative other than that mentioned above. PHYSICAL EXAMINATION: GENERAL: Well-nourished, well-developed lady, comfortable at rest, no acute distress, talking in fu ll and complete sentences. VITAL SIGNS: Currently afebrile. Pulse is 80, blood pressure 133/70, O2 saturation 92% on room air . NECK: Supple. No JVD or lymphadenopathy. CARDIAC: S1, S2, no added sounds or murmurs. CHEST: Diminished air entry bilaterally. ABDOMEN: Soft, nontender. No guarding or rebound. EXTREMITIES: No cyanosis, clubbing, 1+ edema. NEUROLOGIC: Generalized weakness. LABORATORY DATA: White count 7.7, hemoglobin 8.3, platelets of 280. BUN 21, creatinine 0.886. DIAGNOSTIC DATA: Chest x-ray was unremarkable on admission. IMPRESSION AND PLAN: 1. Recent fall. 2. Femoral fracture status post nailing. 3. History of anxiety disorder. 4. History of depression. 5. History of asthma, currently stable. PLAN: 1. Continue physical therapy. 2. Continue DVT and GI prophylaxis. 3. Continue iron replacement. 4. Continue bronchodilators as needed. 5. Psychology evaluation would be helpful. Dictated By: LEIGHA JAMA/CHARMAINE Conf#: [id number] DID#: [id number]
[2016-12-02 19:33] VITALS: BP 143/64; RESP 20
[2016-12-02] MEDS: SENNA TAB PO SCH (20:34)
--- NOTE | 2016-12-03 00:10 | CONS ---
DATE OF ADMISSION: 12/01/2016 DATE OF CONSULTATION: 12/02/2016 TYPE OF CONSULTATION: Psychological. REFERRING PHYSICIAN: Demetrio Pedro MD CONSULTING PSYCHOLOGIST: Kayce Soto, PhD REASON FOR CONSULTATION: This consultation was requested by Dr. Alfredito Pedro, in order to evaluate the cognitive and emotional functioning of this patient related to her present medical condition. HISTORY OF PRESENT ILLNESS: The patient is a 65-year-old female. She had a fall, where she had a l eft femur fracture. The patient was treated medically and then stabilized. The patient was curious as to "what happened to me and why?" The patient does say that she is frustrated and depressed and does have anxiety sometimes. The patient is motivated to get better and does want to return to her previous level of functioning. FAMILY/SOCIAL HISTORY: The patient at the present time, lives alone in a home. The patient has 2 d aughters, one of which is her caregiver, and does receive 79 hours per month of caregiving services. The patient may need more this caregiving service after discharge. The patient's other daughter w as present during the consultation, with the patient's permission. MEDICATIONS: The patient is currently on Effexor XR 150 mg daily, Ativan 1 mg at bedtime p.r.n. SUBSTANCE USE: The patient denies any use of alcohol or other drugs. The patient reports that she does not smoke. MENTAL STATUS EXAMINATION: APPEARANCE: The patient was seen in bed. She is of average height and slightly overweight. The pa tient is right-handed. BEHAVIOR: The patient was cooperative during the consultation. The patient did attempt to answer a ll questions presented to her by the interviewer. MOOD AND AFFECT: The patient's mood appeared to be somewhat depressed. Affect did appear to be sli ghtly anxious. PERCEPTION: The patient reports no hallucinations or delusions. The patient was alert to person, p lace, situation, and time. MEMORY AND COGNITION: The patient's memory and cognition were basically intact. She was able to re member the name of the hospital. The patient was able to say the month and the year. The patient w as able to say who the surgeon/president is. The patient could not say who the governo r of the state or who the mayor of the [facility] is. INTELLIGENCE: Appears to fall in the average range. INSIGHT: Fair. JUDGMENT: Fair. THOUGHT CONTENT: The patient is concerned about her present medical condition. The patient does wa nt to return home after discharge. The patient did say that if she cannot get well enough to handle herself at home with daughter as caregiver, that she may have to go on to a longer term rehab facil ity until she can get better to be able to return home. This is a realistic appraisal of her situat ion. DISCUSSION: The patient can likely benefit from some cognitive/behavioral psychotherapy while she i s on the unit. This psychotherapy would focus on her frustration and depression and trying to deal with her overall medical problems. DIAGNOSTIC IMPRESSION: F06.31: Major depressive disorder, recurrent, moderate. Thank you very much, Dr. Alfredito Pedro, for referring this individual. Please do not hesitate to ca ll if you have any additional questions. Dictated By: KAYCE SOTO PHD JAYJAY/CHARMAINE Conf#: [id number] DID#: [id number]
[2016-12-03] MEDS: HYDROCODONE/APAP (5/325) TAB PO PRN ×3 (02:35→16:47)
[2016-12-03] MEDS: PANTOPRAZOLE (EC) 40 MG TAB PO SCH (06:47)
[2016-12-03 07:30] VITALS: BP 159/71; RESP 18
[2016-12-03 08:00] VITALS: BP 159/71; PULSE 84; RESP 18
[2016-12-03] MEDS: MULTIVITAMINS/MINERALS TAB PO SCH (09:15)
[2016-12-03] MEDS: VENLAFAXINE (XR) 75 MG CAP PO SCH (09:15)
[2016-12-03] MEDS: CHOLECALCIFEROL 2,000 UNIT CAP PO SCH (09:15)
[2016-12-03] MEDS: ASPIRIN 325 MG TAB PO SCH (09:15)
[2016-12-03] MEDS: FERROUS SULFATE (EC) 325 MG TAB PO SCH (09:15)
[2016-12-03] MEDS: CALCIUM/VITAMIN D (500/200) TAB PO SCH (09:15)
[2016-12-03] MEDS: FOLIC ACID 1 MG TAB PO SCH (09:15)
[2016-12-03] MEDS: NISOLDIPINE 8.5 MG PO SCH ×2 (09:16→16:47)
[2016-12-03] MEDS: CYANOCOBALAMIN 1000 MCG INJ IM ONE ×2 (09:16→09:24)
--- NOTE | 2016-12-03 11:37 | CONS ---
Date/Time of Note Date/Time of Note DATE: 12/03/16 TIME: 11:36 Consult Date/Type/Reason Admit Date/Time Dec 01, 2016 at 16:25 Initial Consult Date Type of Consultation: internal medicine Subjective Patient stable this morning no new events continues physical therapy Sitting up in chair comfortably at rest Objective Vital Signs Date Time Temp Pulse Resp B/P Pulse Ox O2 Delivery O2 Flow Rate FiO2 12/03/16 08:00 98.1 84 18 159/71 96 Room Air 12/02/16 18:15 21 Intake and Output 12/02/16 12/02/16 12/03/16 15:00 23:00 07:00 Intake Total 450 ml 620 ml 360 ml Output Total 450 ml 1 ml Balance 0 ml 619 ml 360 ml Exam PHYSICAL EXAMINATION: GENERAL: Well-nourished, well-developed lady, comfortable at rest, no acute distress, talking in full and complete sentences. VITAL SIGNS: As above NECK: Supple. No JVD or lymphadenopathy. CARDIAC: S1, S2, no added sounds or murmurs. CHEST: Diminished air entry bilaterally. ABDOMEN: Soft, nontender. No guarding or rebound. EXTREMITIES: No cyanosis, clubbing, 1+ edema. NEUROLOGIC: Generalized weakness. Results/Medications Result Diagram: 12/02/1641 12/02/16640 Medications Current Medications Ferrous Sulfate (Ferrous Sulfate (Ec)) 325 mg DAILY PO Last administered on 09:15; Admin Dose 325 MG; Start 12/02/16 at 09:00; Stop 12/31/16 at 08: 59 Tramadol HCl (Ultram) 50 mg TID PRN PO PAIN Last administered on 12/02/16 13: 26; Admin Dose 50 MG; Start 12/01/16 at 19:00 Venlafaxine HCl (Effexor Xr) 150 mg DAILY PO Last administered on 12/03/16 09: 15; Admin Dose 150 MG; Start 12/02/16 at 09:00 Cholecalciferol (Vitamin D) 2,000 unit DAILY PO Last administered on 12/03/16 09:15; Admin Dose 2,000 UNIT; Start 12/02/16 at 09:00 Multivitamins/ Minerals (Theragran-M) 1 tab DAILY PO Last administered on 09:15; Admin Dose 1 TAB; Start 12/02/16 at 09:00 Calcium/Vitamin D (Oyster Shell/ Vit-D (500/200)) 1 tab DAILY PO Last administered on 12/03/16 09:15; Admin Dose 1 TAB; Start 12/02/16 at 09:00 Acetaminophen/ Hydrocodone Bitart ([place] (5/325)) 1 tab Q6H PRN PO PAIN Last administered on 12/03/16 09:09; Admin Dose 1 TAB; Start 12/01/16 at 19:00 Lorazepam (Ativan) 1 mg QHS PRN PO SLEEP Last administered on 12/01/16 20:14; Admin Dose 1 MG; Start 12/01/16 at 19:00 Nitroglycerin (Nitroglycerin (Sl Tab) 0.4 Mg) 1 tab Q5M PRN SL CHEST PAIN; Start 12/01/16 at 19:00 Pantoprazole (Protonix Tab) 40 mg DAILY@06 PO Last administered on 12/03/16 06 :47; Admin Dose 40 MG; Start 12/02/16 at 06:00 Aspirin (Aspirin) 325 mg DAILY PO Last administered on 12/03/16 09:15; Admin Dose 325 MG; Start 12/02/16 at 09:00 Docusate Sodium (Colace) 100 mg Q12H PRN PO CONSTIPATION; Start 12/01/16 at 19: 00 Folic Acid (Folic Acid) 1 mg DAILY PO Last administered on 12/03/16 09:15; Admin Dose 1 MG; Start 12/02/16 at 09:00 Senna (Senokot) 1 tab QHS PO Last administered on 12/02/16 20:34; Admin Dose 1 TAB; Start 12/01/16 at 21:00 Bisacodyl (Dulcolax Supp) 10 mg DAILY PRN [place] CONSTIPATION; Start 12/01/16 at 19 :00 Magnesium Hydroxide (Milk Of Mag) 30 ml BID PRN PO CONSTIPATION; Start at 19:00 Lactulose (Enulose) 20 gm DAILY PRN PO CONSTIPATION; Start 12/01/16 at 19:00 Acetaminophen (Tylenol Tab) 650 mg Q4H PRN PO PAIN AND OR ELEVATED TEMP; Start 12/01/16 at 19:00 Diphenhydramine HCl (Benadryl) 25 mg Q6H PRN PO ITCHING Last administered on 00:47; Admin Dose 25 MG; Start 12/01/16 at 21:00 Morphine Sulfate (Roxanol) 6 mg Q4 PRN PO PAIN Last administered on 12/02/16 22:47; Admin Dose 6 MG; Start 12/01/16 at 21:00 Patient Own Medication 1 ea BID@ PO Last administered on 12/03/16 09:16; Admin Dose 1 EA; Start 12/03/16 at 09:00 Assessment/Plan Chief Complaint/Hosp Course IMPRESSION 1. Recent fall. 2. Femoral fracture status post nailing. 3. History of anxiety disorder. 4. History of depression. 5. History of asthma, currently stable. 6. Postoperative anemia PLAN: 1. Continue physical therapy. 2. Continue DVT and GI prophylaxis. 3. Continue iron replacement. Monitor H&H 4. Continue bronchodilators as needed. 5. Psychology recommendations Problems: LEIGHA CALL MD, [facility] Dec 03, 2016 11:37
--- NOTE | 2016-12-03 13:23 | CONS ---
Date/Time of Note Date/Time of Note DATE: 12/03/16 TIME: 13:21 Consult Date/Type/Reason Admit Date/Time Dec 01, 2016 at 16:25 Initial Consult Date Type of Consultation: internal medicine Subjective Feeling better today Objective pulm- cta abd- soft mod assist transfer Vital Signs Date Time Temp Pulse Resp B/P Pulse Ox O2 Delivery O2 Flow Rate FiO2 12/03/16 08:00 98.1 84 18 159/71 96 Room Air 12/02/16 18:15 21 Intake and Output 12/02/16 12/02/16 12/03/16 15:00 23:00 07:00 Intake Total 450 ml 620 ml 360 ml Output Total 450 ml 1 ml Balance 0 ml 619 ml 360 ml Exam Rehab- L commun oblique prox mid femoral fx-s/p IMN Patient tolerating rehab program anemia- monitor HTN GERD anxiety; depression Results/Medications Result Diagram: 12/02/16 0641 12/02/16 0641 Medications Current Medications Ferrous Sulfate (Ferrous Sulfate (Ec)) 325 mg DAILY PO Last administered on 09:15; Admin Dose 325 MG; Start 12/02/16 at 09:00; Stop 12/31/16 at 08: 59 Tramadol HCl (Ultram) 50 mg TID PRN PO PAIN Last administered on 12/02/16 13: 26; Admin Dose 50 MG; Start 12/01/16 at 19:00 Venlafaxine HCl (Effexor Xr) 150 mg DAILY PO Last administered on 12/03/16 09: 15; Admin Dose 150 MG; Start 12/02/16 at 09:00 Cholecalciferol (Vitamin D) 2,000 unit DAILY PO Last administered on 12/03/16 09:15; Admin Dose 2,000 UNIT; Start 12/02/16 at 09:00 Multivitamins/ Minerals (Theragran-M) 1 tab DAILY PO Last administered on 09:15; Admin Dose 1 TAB; Start 12/02/16 at 09:00 Calcium/Vitamin D (Oyster Shell/ Vit-D (500/200)) 1 tab DAILY PO Last administered on 12/03/16 09:15; Admin Dose 1 TAB; Start 12/02/16 at 09:00 Acetaminophen/ Hydrocodone Bitart ([place] (5/325)) 1 tab Q6H PRN PO PAIN Last administered on 12/03/16 09:09; Admin Dose 1 TAB; Start 12/01/16 at 19:00 Lorazepam (Ativan) 1 mg QHS PRN PO SLEEP Last administered on 12/01/16 20:14; Admin Dose 1 MG; Start 12/01/16 at 19:00 Nitroglycerin (Nitroglycerin (Sl Tab) 0.4 Mg) 1 tab Q5M PRN SL CHEST PAIN; Start 12/01/16 at 19:00 Pantoprazole (Protonix Tab) 40 mg DAILY@06 PO Last administered on 12/03/16 06 :47; Admin Dose 40 MG; Start 12/02/16 at 06:00 Aspirin (Aspirin) 325 mg DAILY PO Last administered on 12/03/16 09:15; Admin Dose 325 MG; Start 12/02/16 at 09:00 Docusate Sodium (Colace) 100 mg Q12H PRN PO CONSTIPATION; Start 12/01/16 at 19: 00 Folic Acid (Folic Acid) 1 mg DAILY PO Last administered on 12/03/16 09:15; Admin Dose 1 MG; Start 12/02/16 at 09:00 Senna (Senokot) 1 tab QHS PO Last administered on 12/02/16 20:34; Admin Dose 1 TAB; Start 12/01/16 at 21:00 Bisacodyl (Dulcolax Supp) 10 mg DAILY PRN [place] CONSTIPATION; Start 12/01/16 at 19 :00 Magnesium Hydroxide (Milk Of Mag) 30 ml BID PRN PO CONSTIPATION; Start at 19:00 Lactulose (Enulose) 20 gm DAILY PRN PO CONSTIPATION; Start 12/01/16 at 19:00 Acetaminophen (Tylenol Tab) 650 mg Q4H PRN PO PAIN AND OR ELEVATED TEMP Last administered on 12/03/16 11:44; Admin Dose 650 MG; Start 12/01/16 at 19:00 Diphenhydramine HCl (Benadryl) 25 mg Q6H PRN PO ITCHING Last administered on 00:47; Admin Dose 25 MG; Start 12/01/16 at 21:00 Morphine Sulfate (Roxanol) 6 mg Q4 PRN PO PAIN Last administered on 12/02/16 22:47; Admin Dose 6 MG; Start 12/01/16 at 21:00 Patient Own Medication 1 ea BID@ PO Last administered on 12/03/16 09:16; Admin Dose 1 EA; Start 12/03/16 at 09:00 ILDA RUIZ MD Dec 03, 2016 13:22
[2016-12-03 20:00] VITALS: BP 129/60; RESP 20
[2016-12-03] MEDS: SENNA TAB PO SCH (21:00)
[2016-12-03] MEDS: LORAZEPAM 1 MG TAB PO PRN (21:15)
[2016-12-03] MEDS: morphine LIQ (20 MG/ML PO SYG) PO PRN (23:11)
[2016-12-04] MEDS: HYDROCODONE/APAP (5/325) TAB PO PRN ×3 (01:52→16:35)
[2016-12-04] MEDS: PANTOPRAZOLE (EC) 40 MG TAB PO SCH (06:10)
[2016-12-04 07:38] VITALS: BP 144/67; RESP 18
[2016-12-04] MEDS: VENLAFAXINE (XR) 75 MG CAP PO SCH (09:02)
[2016-12-04] MEDS: CALCIUM/VITAMIN D (500/200) TAB PO SCH (09:02)
[2016-12-04] MEDS: CHOLECALCIFEROL 2,000 UNIT CAP PO SCH (09:02)
[2016-12-04] MEDS: FOLIC ACID 1 MG TAB PO SCH (09:02)
[2016-12-04] MEDS: NISOLDIPINE 8.5 MG PO SCH ×2 (09:02→16:35)
[2016-12-04] MEDS: FERROUS SULFATE (EC) 325 MG TAB PO SCH (09:02)
[2016-12-04] MEDS: ASPIRIN 325 MG TAB PO SCH (09:02)
[2016-12-04] MEDS: MULTIVITAMINS/MINERALS TAB PO SCH (09:02)
--- NOTE | 2016-12-04 12:47 | CONS ---
Date/Time of Note Date/Time of Note DATE: 12/04/16 TIME: 12:47 Consult Date/Type/Reason Admit Date/Time Dec 01, 2016 at 16:25 Type of Consultation: internal medicine Subjective Pain improving Objective pulm- cta abd-soft mod assist Vital Signs Date Time Temp Pulse Resp B/P Pulse Ox O2 Delivery O2 Flow Rate FiO2 12/04/16 07:38 98.1 82 18 144/67 96 12/03/16 08:00 Room Air 12/02/16 18:15 21 Intake and Output 12/03/16 12/03/16 12/04/16 15:00 23:00 07:00 Intake Total 820 ml 420 ml Output Total 1 ml 400 ml Balance 819 ml 20 ml Results/Medications Result Diagram: 12/02/1664012/02/16640 Medications Current Medications Ferrous Sulfate (Ferrous Sulfate (Ec)) 325 mg DAILY PO Last administered on 09:02; Admin Dose 325 MG; Start 12/02/16 at 09:00; Stop 12/31/16 at 08: 59 Tramadol HCl (Ultram) 50 mg TID PRN PO PAIN Last administered on 12/02/16 13: 26; Admin Dose 50 MG; Start 12/01/16 at 19:00 Venlafaxine HCl (Effexor Xr) 150 mg DAILY PO Last administered on 12/04/16 09: 02; Admin Dose 150 MG; Start 12/02/16 at 09:00 Cholecalciferol (Vitamin D) 2,000 unit DAILY PO Last administered on 12/04/16 09:02; Admin Dose 2,000 UNIT; Start 12/02/16 at 09:00 Multivitamins/ Minerals (Theragran-M) 1 tab DAILY PO Last administered on 09:02; Admin Dose 1 TAB; Start 12/02/16 at 09:00 Calcium/Vitamin D (Oyster Shell/ Vit-D (500/200)) 1 tab DAILY PO Last administered on 12/04/16 09:02; Admin Dose 1 TAB; Start 12/02/16 at 09:00 Acetaminophen/ Hydrocodone Bitart ([place] (5/325)) 1 tab Q6H PRN PO PAIN Last administered on 12/04/16 09:54; Admin Dose 1 TAB; Start 12/01/16 at 19:00 Lorazepam (Ativan) 1 mg QHS PRN PO SLEEP Last administered on 12/03/16 21:15; Admin Dose 1 MG; Start 12/01/16 at 19:00 Nitroglycerin (Nitroglycerin (Sl Tab) 0.4 Mg) 1 tab Q5M PRN SL CHEST PAIN; Start 12/01/16 at 19:00 Pantoprazole (Protonix Tab) 40 mg DAILY@06 PO Last administered on 12/04/16 06 :10; Admin Dose 40 MG; Start 12/02/16 at 06:00 Aspirin (Aspirin) 325 mg DAILY PO Last administered on 12/04/16 09:02; Admin Dose 325 MG; Start 12/02/16 at 09:00 Docusate Sodium (Colace) 100 mg Q12H PRN PO CONSTIPATION; Start 12/01/16 at 19: 00 Folic Acid (Folic Acid) 1 mg DAILY PO Last administered on 12/04/16 09:02; Admin Dose 1 MG; Start 12/02/16 at 09:00 Senna (Senokot) 1 tab QHS PO Last administered on 12/02/16 20:34; Admin Dose 1 TAB; Start 12/01/16 at 21:00 Bisacodyl (Dulcolax Supp) 10 mg DAILY PRN [place] CONSTIPATION; Start 12/01/16 at 19 :00 Magnesium Hydroxide (Milk Of Mag) 30 ml BID PRN PO CONSTIPATION; Start at 19:00 Lactulose (Enulose) 20 gm DAILY PRN PO CONSTIPATION; Start 12/01/16 at 19:00 Acetaminophen (Tylenol Tab) 650 mg Q4H PRN PO PAIN AND OR ELEVATED TEMP Last administered on 12/03/16 11:44; Admin Dose 650 MG; Start 12/01/16 at 19:00 Diphenhydramine HCl (Benadryl) 25 mg Q6H PRN PO ITCHING Last administered on 00:47; Admin Dose 25 MG; Start 12/01/16 at 21:00 Morphine Sulfate (Roxanol) 6 mg Q4 PRN PO PAIN Last administered on 12/03/16 23:11; Admin Dose 6 MG; Start 12/01/16 at 21:00 Patient Own Medication 1 ea BID@ PO Last administered on 12/04/16t 09:02; Admin Dose 1 EA; Start 12/03/16 at 09:00 Assessment/Plan Additional Assessment/Plan Rehab- L commun oblique prox mid femoral fx-s/p IMN Patient improving with rehab program anemia- monitor HTN GERD anxiety; depression ILDA RUIZ MD Dec 04, 2016 12:47
[2016-12-04 14:02] LABS: ADD SCAN DIFF NO
[2016-12-04 14:12] LABS: BASOPHILS % 0.4 % (0.0-2.0); EOSINOPHILS # 0.3 10^3/ul (0.0-0.5); EOSINOPHILS % 4.1 % (0.0-7.0); HEMATOCRIT 28.1 % (37.0-47.0); HEMOGLOBIN 8.6 g/dl (12.0-16.0); LYMPHOCYTES # 1.4 10^3/ul (0.8-2.9); LYMPHOCYTES % 18.7 % (15.0-51.0); MEAN CORPUSCULAR HEMOGLOBIN 20.7 pg (29.0-33.0); MEAN CORPUSCULAR HGB CONC 30.6 g/dl (32.0-37.0); MEAN CORPUSCULAR VOLUME 67.7 fl (82.0-101.0); MEAN PLATELET VOLUME 10.3 fl (7.4-10.4); MONOCYTE # 0.6 10^3/ul (0.3-0.9); MONOCYTES % 8.4 % (0.0-11.0); NEUTROPHIL # 5.1 10^3/ul (1.6-7.5); NEUTROPHILS % 67.6 % (39.0-77.0); PLATELET COUNT 321 10^3/UL (140-415); RED BLOOD COUNT 4.15 10^6/ul (4.20-5.40); RED CELL DISTRIBUTION WIDTH 18.9 % (11.5-14.5); WHITE BLOOD COUNT 7.6 10^3/ul (4.8-10.8)
--- NOTE | 2016-12-04 15:24 | PN ---
DATE: 12/04/2016 INTERNAL MEDICINE FOLLOWUP NOTE PHYSICAL EXAMINATION: VITAL SIGNS: Temperature 98, pulse 82, blood pressure 144/67, O2 saturation 96% on room air. NECK: Supple. No JVD or lymphadenopathy. CARDIAC EXAM: S1, S2. No added sounds or murmurs. CHEST: Diminished air entry bilaterally. ABDOMEN: Soft, nontender. No guarding or rebound. EXTREMITIES: No cyanosis or clubbing. 1+ edema. NEUROLOGIC: Generalized weakness. LABORATORY: White count 7.6, hemoglobin 8.6, platelets of 321. IMPRESSION AND PLAN: 1. Recent mechanical fall, status post femoral nailing. 2. History of anxiety disorder. 3. History of depression. 4. Remote history of asthma. PLAN: 1. Continue physical therapy. 2. Pain control. 3. Iron supplements. 4. Bronchodilators. 5. Psychiatric recommendations. Dictated By: LEIGHA JAMA/CHARMAINE Conf#: [id number] DID#: [id number]
[2016-12-04 19:49] VITALS: BP 153/68; RESP 18
[2016-12-04] MEDS: SENNA TAB PO SCH (20:55)
[2016-12-04] MEDS: LORAZEPAM 1 MG TAB PO PRN (20:55)
[2016-12-04] MEDS: traMADol 50 MG TAB PO PRN (20:56)
[2016-12-04] MEDS: morphine LIQ (20 MG/ML PO SYG) PO PRN (23:05)
[2016-12-05] MEDS: HYDROCODONE/APAP (5/325) TAB PO PRN ×4 (02:43→23:23)
[2016-12-05] MEDS: PANTOPRAZOLE (EC) 40 MG TAB PO SCH (05:35)
[2016-12-05 08:00] VITALS: BP 134/79; PULSE 83; RESP 20
[2016-12-05] MEDS: NISOLDIPINE 8.5 MG PO SCH ×2 (08:33→16:59)
[2016-12-05] MEDS: ASPIRIN 325 MG TAB PO SCH (08:47)
[2016-12-05] MEDS: FERROUS SULFATE (EC) 325 MG TAB PO SCH (08:47)
[2016-12-05] MEDS: MULTIVITAMINS/MINERALS TAB PO SCH (08:47)
[2016-12-05] MEDS: FOLIC ACID 1 MG TAB PO SCH (08:47)
[2016-12-05] MEDS: CHOLECALCIFEROL 2,000 UNIT CAP PO SCH (08:47)
[2016-12-05] MEDS: CALCIUM/VITAMIN D (500/200) TAB PO SCH (08:48)
[2016-12-05] MEDS: traMADol 50 MG TAB PO PRN (08:48)
[2016-12-05] MEDS: VENLAFAXINE (XR) 75 MG CAP PO SCH (08:48)
--- NOTE | 2016-12-05 12:56 | PN ---
Date/Time of Note Date/Time of Note DATE: 12/05/16 TIME: 12:47 Assessment/Plan VTE Prophylaxis VTE Prophylaxis Intervention: SCD's, other (ASA) Lines/Catheters Urinary Cath still in place: No Assessment/Plan Assessment/Plan 1. Left closed midshaft femur fracture s/p Intramedullary nailing. With impaired mobility/gait/ADLs. Continue PT/OT. Mod assist for transfers and gait. 2. Acute post operative pain. Controlled, continue current pain regimen. 3. Constipation. Adjust bowel regimen. 4. Anemia. Monitor hemoglobin/hematocrit, stable on last labs. 5. Hypertension. Monitor BP. Internal medicine managing. 6. GERD. Continue protonix. 7. History of anxiety/depression. Mood stable. Continue medications. 8. History of asthma. Continue medical management. Subjective 24 Hr Interval Summary Free Text/Dictation Rehab progress note Subjective: Reports mild pain currently LLE, pain controlled with current regimen. ROS: Denies chest pain, no shortness of breath, no abdominal pain, no nausea, no chills. Reports hard stools. Exam/Review of Systems Vital Signs Vitals Vital Signs Date Time Temp Pulse Resp B/P Pulse Ox O2 Delivery O2 Flow Rate FiO2 12/05/16 08:00 98.6 83 20 134/79 95 Room Air 12/02/16 18:15 21 Intake and Output 12/04/16 12/04/16 12/05/16 15:00 23:00 07:00 Intake Total 720 ml 360 ml 800 ml Output Total 650 ml 500 ml Balance 70 ml -140 ml 800 ml Exam General: Awake, alert, no acute distress CV: Regular rate, s1s2 Lungs: Diminished breath sounds bilaterally, no wheezing Abdomen soft, nontender, +bowel sounds Extremities without cyanosis, no new swelling Neuro: Follows simple commands. L DF/PF intact. No new sensory changes. Results Result Diagram: 12/04/16 1340 12/02/16 0641 Results 24 hrs Laboratory Tests Test 12/04/16 13:40 White Blood Count 7.6 Red Blood Count 4.15 L Hemoglobin 8.6 L Hematocrit 28.1 L Mean Corpuscular Volume 67.7 L Mean Corpuscular Hemoglobin 20.7 L Mean Corpuscular Hemoglobin Concent 30.6 L Red Cell Distribution Width 18.9 H Platelet Count 321 Mean Platelet Volume 10.3 Neutrophils % 67.6 Lymphocytes % 18.7 Monocytes % 8.4 Eosinophils % 4.1 Basophils % 0.4 Nucleated Red Blood Cells % 0.0 Neutrophils # 5.1 Lymphocytes # 1.4 Monocytes # 0.6 Eosinophils # 0.3 Basophils # 0.0 Nucleated Red Blood Cells # 0.0 Medications Medications Current Medications Ferrous Sulfate (Ferrous Sulfate (Ec)) 325 mg DAILY PO Last administered on 08:47; Admin Dose 325 MG; Start 12/02/16 at 09:00; Stop 12/31/16 at 08: 59 Tramadol HCl (Ultram) 50 mg TID PRN PO PAIN Last administered on 12/05/16 08: 48; Admin Dose 50 MG; Start 12/01/16 at 19:00 Venlafaxine HCl (Effexor Xr) 150 mg DAILY PO Last administered on 12/05/16 08: 48; Admin Dose 150 MG; Start 12/02/16 at 09:00 Cholecalciferol (Vitamin D) 2,000 unit DAILY PO Last administered on 12/05/16 08:47; Admin Dose 2,000 UNIT; Start 12/02/16 at 09:00 Multivitamins/ Minerals (Theragran-M) 1 tab DAILY PO Last administered on 08:47; Admin Dose 1 TAB; Start 12/02/16 at 09:00 Calcium/Vitamin D (Oyster Shell/ Vit-D (500/200)) 1 tab DAILY PO Last administered on 12/05/16 08:48; Admin Dose 1 TAB; Start 12/02/16 at 09:00 Acetaminophen/ Hydrocodone Bitart ([place] (5/325)) 1 tab Q6H PRN PO PAIN Last administered on 12/05/16 10:47; Admin Dose 1 TAB; Start 12/01/16 at 19:00 Lorazepam (Ativan) 1 mg QHS PRN PO SLEEP Last administered on 12/04/16 20:55; Admin Dose 1 MG; Start 12/01/16 at 19:00 Nitroglycerin (Nitroglycerin (Sl Tab) 0.4 Mg) 1 tab Q5M PRN SL CHEST PAIN; Start 12/01/16 at 19:00 Pantoprazole (Protonix Tab) 40 mg DAILY@06 PO Last administered on 12/05/16 05 :35; Admin Dose 40 MG; Start 12/02/16 at 06:00 Aspirin (Aspirin) 325 mg DAILY PO Last administered on 12/05/16 08:47; Admin Dose 325 MG; Start 12/02/16 at 09:00 Folic Acid (Folic Acid) 1 mg DAILY PO Last administered on 12/05/16 08:47; Admin Dose 1 MG; Start 12/02/16 at 09:00 Senna (Senokot) 1 tab QHS PO Last administered on 12/02/16 20:34; Admin Dose 1 TAB; Start 12/01/16 at 21:00 Bisacodyl (Dulcolax Supp) 10 mg DAILY PRN [place] CONSTIPATION; Start 12/01/16 at 19 :00 Magnesium Hydroxide (Milk Of Mag) 30 ml BID PRN PO CONSTIPATION; Start at 19:00 Lactulose (Enulose) 20 gm DAILY PRN PO CONSTIPATION; Start 12/01/16 at 19:00 Acetaminophen (Tylenol Tab) 650 mg Q4H PRN PO PAIN AND OR ELEVATED TEMP Last administered on 12/03/16 11:44; Admin Dose 650 MG; Start 12/01/16 at 19:00 Diphenhydramine HCl (Benadryl) 25 mg Q6H PRN PO ITCHING Last administered on 00:47; Admin Dose 25 MG; Start 12/01/16 at 21:00 Morphine Sulfate (Roxanol) 6 mg Q4 PRN PO PAIN Last administered on 12/04/16 23:05; Admin Dose 6 MG; Start 12/01/16 at 21:00 Patient Own Medication 1 ea BID@ PO Last administered on 12/05/16 08:33; Admin Dose 1 EA; Start 12/03/16 at 09:00 Docusate Sodium (Colace) 100 mg Q12H PO ; Start 12/05/16 at 19:00; Status UNV EMEKA MORALES Dec 05, 2016 12:56 EMEKA MORALES Dec 05, 2016 12:56
[2016-12-05] MEDS ORDERED: LORATADINE 10 MG TAB PO ONE (15:00)
--- NOTE | 2016-12-05 15:01 | CONS ---
Date/Time of Note Date/Time of Note DATE: 12/05/16 TIME: 15:00 Consultation Date/Type/Reason Admit Date/Time Dec 01, 2016 at 16:25 Initial Consult Date Type of Consultation: internal medicine 24 HR Interval Summary Free Text/Dictation Patient is doing very well overall denies any shortness of breath, but does complain of tingling in the throat which is worse at night. Come to the scant cough. Denies any shortness of breath, fever chills. Exam; elderly lady, currently in no distress awake and alert. HEENT examination; supple neck, no JVD. No lymphadenopathy. Midline trachea. Pharynx clear. Patient has good dentition. Chest examination; clear to auscultation bilaterally. S1-S2 audible, no murmurs. Regular rhythm. Abdomen examination; soft, nontender. No organomegaly. Bowel disorder. Extremity exam is; no peripheral edema. Pulses 1+ bilaterally. SEAM FELLER examination; no focal deficit. Assessment and plan;. 1. Patient status post fall started with femoral fracture status post surgery. Doing very well overall. 2. Anemia. 3. History of asthma. 4. History of depression and anxiety. 5. Likely postnasal drip. Continue current treatment. Add Zyrtec 10 mg daily. Exam/Review of Systems Vital Signs Vitals Vital Signs Date Time Temp Pulse Resp B/P Pulse Ox O2 Delivery O2 Flow Rate FiO2 12/05/16 08:00 98.6 83 20 134/79 95 Room Air 12/02/16 18:15 21 Intake and Output 12/04/16 12/04/16 12/05/16 15:00 23:00 07:00 Intake Total 720 ml 360 ml 800 ml Output Total 650 ml 500 ml Balance 70 ml -140 ml 800 ml Results Result Diagram: 12/04/16 1340 12/02/16 0641 Medications Medications Current Medications Ferrous Sulfate (Ferrous Sulfate (Ec)) 325 mg DAILY PO Last administered on 08:47; Admin Dose 325 MG; Start 12/02/16 at 09:00; Stop 12/31/16 at 08: 59 Tramadol HCl (Ultram) 50 mg TID PRN PO PAIN Last administered on 12/05/16 08: 48; Admin Dose 50 MG; Start 12/01/16 at 19:00 Venlafaxine HCl (Effexor Xr) 150 mg DAILY PO Last administered on 12/05/16 08: 48; Admin Dose 150 MG; Start 12/02/16 at 09:00 Cholecalciferol (Vitamin D) 2,000 unit DAILY PO Last administered on 12/05/16 08:47; Admin Dose 2,000 UNIT; Start 12/02/16 at 09:00 Multivitamins/ Minerals (Theragran-M) 1 tab DAILY PO Last administered on 08:47; Admin Dose 1 TAB; Start 12/02/16 at 09:00 Calcium/Vitamin D (Oyster Shell/ Vit-D (500/200)) 1 tab DAILY PO Last administered on 12/05/16 08:48; Admin Dose 1 TAB; Start 12/02/16 at 09:00 Acetaminophen/ Hydrocodone Bitart ([place] (5/325)) 1 tab Q6H PRN PO PAIN Last administered on 12/05/16 10:47; Admin Dose 1 TAB; Start 12/01/16 at 19:00 Lorazepam (Ativan) 1 mg QHS PRN PO SLEEP Last administered on 12/04/16 20:55; Admin Dose 1 MG; Start 12/01/16 at 19:00 Nitroglycerin (Nitroglycerin (Sl Tab) 0.4 Mg) 1 tab Q5M PRN SL CHEST PAIN; Start 12/01/16 at 19:00 Pantoprazole (Protonix Tab) 40 mg DAILY@06 PO Last administered on 12/05/16 05 :35; Admin Dose 40 MG; Start 12/02/16 at 06:00 Aspirin (Aspirin) 325 mg DAILY PO Last administered on 12/05/16 08:47; Admin Dose 325 MG; Start 12/02/16 at 09:00 Folic Acid (Folic Acid) 1 mg DAILY PO Last administered on 12/05/16 08:47; Admin Dose 1 MG; Start 12/02/16 at 09:00 Senna (Senokot) 1 tab QHS PO Last administered on 12/02/16 20:34; Admin Dose 1 TAB; Start 12/01/16 at 21:00 Bisacodyl (Dulcolax Supp) 10 mg DAILY PRN [place] CONSTIPATION; Start 12/01/16 at 19 :00 Magnesium Hydroxide (Milk Of Mag) 30 ml BID PRN PO CONSTIPATION; Start at 19:00 Lactulose (Enulose) 20 gm DAILY PRN PO CONSTIPATION Last administered on 13:34; Admin Dose 20 GM; Start 12/01/16 at 19:00 Acetaminophen (Tylenol Tab) 650 mg Q4H PRN PO PAIN AND OR ELEVATED TEMP Last administered on 12/03/16 11:44; Admin Dose 650 MG; Start 12/01/16 at 19:00 Diphenhydramine HCl (Benadryl) 25 mg Q6H PRN PO ITCHING Last administered on 00:47; Admin Dose 25 MG; Start 12/01/16 at 21:00 Morphine Sulfate (Roxanol) 6 mg Q4 PRN PO PAIN Last administered on 12/04/16 23:05; Admin Dose 6 MG; Start 12/01/16 at 21:00 Patient Own Medication 1 ea BID@ PO Last administered on 12/05/16 08:33; Admin Dose 1 EA; Start 12/03/16 at 09:00 Docusate Sodium (Colace) 100 mg Q12H PO ; Start 12/05/16 at 19:00 RICCO MEJIAS Dec 05, 2016 15:01
[2016-12-05] MEDS: DOCUSATE SODIUM 100 MG CAP PO SCH (18:57)
[2016-12-05 19:55] VITALS: BP 147/67; RESP 18
[2016-12-05] MEDS: SENNA TAB PO SCH (21:00)
[2016-12-05] MEDS: LORAZEPAM 1 MG TAB PO PRN (21:22)
[2016-12-05] MEDS: morphine LIQ (20 MG/ML PO SYG) PO PRN (21:23)
[2016-12-06] MEDS: PANTOPRAZOLE (EC) 40 MG TAB PO SCH (06:09)
[2016-12-06] MEDS: HYDROCODONE/APAP (5/325) TAB PO PRN ×3 (06:09→23:00)
[2016-12-06] MEDS: NISOLDIPINE 8.5 MG PO SCH ×2 (06:17→17:01)
[2016-12-06 06:18] VITALS: BP 156/71; PULSE 78
[2016-12-06] MEDS: DOCUSATE SODIUM 100 MG CAP PO SCH ×2 (07:00→18:25)
[2016-12-06 07:32] VITALS: BP 145/68; RESP 18
[2016-12-06] MEDS: LORATADINE 10 MG TAB GTB SCH (08:59)
[2016-12-06] MEDS: ASPIRIN 325 MG TAB PO SCH (09:00)
[2016-12-06] MEDS: VENLAFAXINE (XR) 75 MG CAP PO SCH (09:00)
[2016-12-06] MEDS: FOLIC ACID 1 MG TAB PO SCH (09:01)
[2016-12-06] MEDS: CHOLECALCIFEROL 2,000 UNIT CAP PO SCH (09:01)
[2016-12-06] MEDS: FERROUS SULFATE (EC) 325 MG TAB PO SCH (09:01)
[2016-12-06] MEDS: CALCIUM/VITAMIN D (500/200) TAB PO SCH (09:01)
[2016-12-06] MEDS: MULTIVITAMINS/MINERALS TAB PO SCH (09:01)
--- NOTE | 2016-12-06 10:26 | PN ---
Date/Time of Note Date/Time of Note DATE: 12/06/16 TIME: 10:24 Assessment/Plan VTE Prophylaxis VTE Prophylaxis Intervention: SCD's, other (ASA) Lines/Catheters Urinary Cath still in place: No Assessment/Plan Assessment/Plan 1. Left closed midshaft femur fracture s/p intramedullary nailing. With impaired mobility/gait/ADLs. Continue PT/OT. Stand by assistance for toileting, moderate assistance for lower body bathing. 2. Acute post operative pain. Controlled, continue current pain regimen including prn tramadol and norco. 3. Constipation. Continue bowel regimen. 4. Anemia. On iron supplementation. Monitor hemoglobin/hematocrit, stable on last labs. 5. HTN. Monitor BP.Internal medicine managing. 6. GERD. Continue protonix. 7. History of anxiety/depression. Continue medical management. Mood stable at this time. 8. History of asthma. Continue breathing treatments as needed, monitor 02 sats. Subjective 24 Hr Interval Summary Free Text/Dictation Rehab progress note Subjective: Reports mild pain currently in Left lower extremity, worse with movement. ROS: Denies headache, no shortness of breath, no chest pain, no nausea, no vomiting, no abdominal pain, reports bowel movement yesterday. Exam/Review of Systems Vital Signs Vitals Vital Signs Date Time Temp Pulse Resp B/P Pulse Ox O2 Delivery O2 Flow Rate FiO2 12/06/16 07:32 98.0 78 18 145/68 98 12/05/16 08:00 Room Air 12/02/16 18:15 21 Intake and Output 12/05/16 12/05/16 12/06/16 14:59 22:59 06:59 Intake Total 850 ml Output Total 700 ml 150 ml Balance 150 ml -150 ml Exam General: Awake, alert, no acute distress CV: Regular rate, s1s2 Lungs: Respirations are nonlabored, no accessory muscle use, +wheezing Abdomen soft, nontender, +bowel sounds Extremities without cyanosis, no new swelling Neuro: No new focal changes. Follows simple commands. No new sensory changes. Results Result Diagram: 12/04/16 1340 12/02/16 0641 Medications Medications Current Medications Ferrous Sulfate (Ferrous Sulfate (Ec)) 325 mg DAILY PO Last administered on t 09:01; Admin Dose 325 MG; Start 12/02/16 at 09:00; Stop 12/31/16 at 08: 59 Tramadol HCl (Ultram) 50 mg TID PRN PO PAIN Last administered on 12/05/16 08: 48; Admin Dose 50 MG; Start 12/01/16 at 19:00 Venlafaxine HCl (Effexor Xr) 150 mg DAILY PO Last administered on 12/06/16 09: 00; Admin Dose 150 MG; Start 12/02/16 at 09:00 Cholecalciferol (Vitamin D) 2,000 unit DAILY PO Last administered on 12/06/16 09:01; Admin Dose 2,000 UNIT; Start 12/02/16 at 09:00 Multivitamins/ Minerals (Theragran-M) 1 tab DAILY PO Last administered on 09:01; Admin Dose 1 TAB; Start 12/02/16 at 09:00 Calcium/Vitamin D (Oyster Shell/ Vit-D (500/200)) 1 tab DAILY PO Last administered on 12/06/16 09:01; Admin Dose 1 TAB; Start 12/02/16 at 09:00 Acetaminophen/ Hydrocodone Bitart ([place] (5/325)) 1 tab Q6H PRN PO PAIN Last administered on 12/06/16 06:09; Admin Dose 1 TAB; Start 12/01/16 at 19:00 Lorazepam (Ativan) 1 mg QHS PRN PO SLEEP Last administered on 12/05/16 21:22; Admin Dose 1 MG; Start 12/01/16 at 19:00 Nitroglycerin (Nitroglycerin (Sl Tab) 0.4 Mg) 1 tab Q5M PRN SL CHEST PAIN; Start 12/01/16 at 19:00 Pantoprazole (Protonix Tab) 40 mg DAILY@06 PO Last administered on 12/06/16 06 :09; Admin Dose 40 MG; Start 12/02/16 at 06:00 Aspirin (Aspirin) 325 mg DAILY PO Last administered on 12/06/16 09:00; Admin Dose 325 MG; Start 12/02/16 at 09:00 Folic Acid (Folic Acid) 1 mg DAILY PO Last administered on 12/06/16 09:01; Admin Dose 1 MG; Start 12/02/16 at 09:00 Senna (Senokot) 1 tab QHS PO Last administered on 12/02/16 20:34; Admin Dose 1 TAB; Start 12/01/16 at 21:00 Bisacodyl (Dulcolax Supp) 10 mg DAILY PRN [place] CONSTIPATION; Start 12/01/16 at 19 :00 Magnesium Hydroxide (Milk Of Mag) 30 ml BID PRN PO CONSTIPATION; Start at 19:00 Lactulose (Enulose) 20 gm DAILY PRN PO CONSTIPATION Last administered on 13:34; Admin Dose 20 GM; Start 12/01/16 at 19:00 Acetaminophen (Tylenol Tab) 650 mg Q4H PRN PO PAIN AND OR ELEVATED TEMP Last administered on 12/03/16 11:44; Admin Dose 650 MG; Start 12/01/16 at 19:00 Diphenhydramine HCl (Benadryl) 25 mg Q6H PRN PO ITCHING Last administered on 00:47; Admin Dose 25 MG; Start 12/01/16 at 21:00 Morphine Sulfate (Roxanol) 6 mg Q4 PRN PO PAIN Last administered on 12/05/16 21:23; Admin Dose 6 MG; Start 12/01/16 at 21:00 Patient Own Medication 1 ea BID@ PO Last administered on 12/06/16 06:17; Admin Dose 1 EA; Start 12/03/16 at 09:00 Docusate Sodium (Colace) 100 mg Q12H PO ; Start 12/05/16 at 19:00 Loratadine (Claritin) 10 mg DAILY GTB Last administered on 12/06/16 08:59; Admin Dose 10 MG; Start 12/06/16 at 09:00 EMEKA MORALES Dec 06, 2016 10:26
[2016-12-06] MEDS: ALBUTEROL/IPRATROPIUM (NEB) 3 ML AMP HHN PRN (11:05)
[2016-12-06] MEDS: traMADol 50 MG TAB PO PRN (17:02)
[2016-12-06 20:27] VITALS: BP 165/77; RESP 18
[2016-12-06] MEDS: SENNA TAB PO SCH (20:50)
[2016-12-06] MEDS: morphine LIQ (20 MG/ML PO SYG) PO PRN (20:50)
[2016-12-06] MEDS: LORAZEPAM 1 MG TAB PO PRN (21:51)
[2016-12-07] MEDS: DOCUSATE SODIUM 100 MG CAP PO SCH ×2 (06:13→18:17)
[2016-12-07] MEDS: PANTOPRAZOLE (EC) 40 MG TAB PO SCH (06:13)
[2016-12-07] MEDS: HYDROCODONE/APAP (5/325) TAB PO PRN ×4 (06:21→23:34)
[2016-12-07 07:30] VITALS: BP 151/70; RESP 18
[2016-12-07] MEDS: LORATADINE 10 MG TAB GTB SCH (08:11)
[2016-12-07] MEDS: NISOLDIPINE 8.5 MG PO SCH ×2 (08:11→17:12)
[2016-12-07] MEDS: FOLIC ACID 1 MG TAB PO SCH (08:12)
[2016-12-07] MEDS: CHOLECALCIFEROL 2,000 UNIT CAP PO SCH (08:12)
[2016-12-07] MEDS: ASPIRIN 325 MG TAB PO SCH (08:12)
[2016-12-07] MEDS: CALCIUM/VITAMIN D (500/200) TAB PO SCH (08:12)
[2016-12-07] MEDS: FERROUS SULFATE (EC) 325 MG TAB PO SCH (08:12)
[2016-12-07] MEDS: VENLAFAXINE (XR) 75 MG CAP PO SCH (08:12)
[2016-12-07] MEDS: MULTIVITAMINS/MINERALS TAB PO SCH (08:12)
--- NOTE | 2016-12-07 13:26 | CONS ---
Date/Time of Note Date/Time of Note DATE: 12/07/16 TIME: 13:26 Consult Date/Type/Reason Admit Date/Time Dec 01, 2016 at 16:25 Type of Consultation: internal medicine Subjective Decreased pain Objective Vital Signs Date Time Temp Pulse Resp B/P Pulse Ox O2 Delivery O2 Flow Rate FiO2 12/07/16 07:30 98.4 86 18 151/70 93 12/06/16 11:17 21 12/05/16 08:00 Room Air Intake and Output 12/06/16 12/06/16 12/07/16 14:59 22:59 06:59 Intake Total 480 ml 240 ml 1040 ml Output Total 650 ml 650 ml 200 ml Balance -170 ml -410 ml 840 ml INTERDISCIPLINARY TEAM CONFERENCE BOWEL- Cont BLADDER-Cont SKIN- intact OT- DRESSING-min/mod BATHING-min/mod TOILETING-min/mod PT- BED MOBILITY-max TRANSFERS-mod AMBULATION-mod 30 feet W.C. MOBILITY-sba A/P- Interdisciplinary team conference held today. Please see interdisciplinary sheet. Working toward d.c. on 12/17 with post discharge follow up of physical therapy, occupational therapy. Results/Medications Result Diagram: 12/04/16 1340 Medications Current Medications Ferrous Sulfate (Ferrous Sulfate (Ec)) 325 mg DAILY PO Last administered on 08:12; Admin Dose 325 MG; Start 12/02/16 at 09:00; Stop 12/31/16 at 08: 59 Tramadol HCl (Ultram) 50 mg TID PRN PO PAIN Last administered on 12/06/16 17: 02; Admin Dose 50 MG; Start 12/01/16 at 19:00 Venlafaxine HCl (Effexor Xr) 150 mg DAILY PO Last administered on 12/07/16 08: 12; Admin Dose 150 MG; Start 12/02/16 at 09:00 Cholecalciferol (Vitamin D) 2,000 unit DAILY PO Last administered on 12/07/16 08:12; Admin Dose 2,000 UNIT; Start 12/02/16 at 09:00 Multivitamins/ Minerals (Theragran-M) 1 tab DAILY PO Last administered on 08:12; Admin Dose 1 TAB; Start 12/02/16 at 09:00 Calcium/Vitamin D (Oyster Shell/ Vit-D (500/200)) 1 tab DAILY PO Last administered on 12/07/16 08:12; Admin Dose 1 TAB; Start 12/02/16 at 09:00 Acetaminophen/ Hydrocodone Bitart ([place] (5/325)) 1 tab Q6H PRN PO PAIN Last administered on 12/07/16 12:00; Admin Dose 1 TAB; Start 12/01/16 at 19:00 Lorazepam (Ativan) 1 mg QHS PRN PO SLEEP Last administered on 12/06/16 21:51; Admin Dose 1 MG; Start 12/01/16 at 19:00 Nitroglycerin (Nitroglycerin (Sl Tab) 0.4 Mg) 1 tab Q5M PRN SL CHEST PAIN; Start 12/01/16 at 19:00 Pantoprazole (Protonix Tab) 40 mg DAILY@06 PO Last administered on 12/07/16 06 :13; Admin Dose 40 MG; Start 12/02/16 at 06:00 Aspirin (Aspirin) 325 mg DAILY PO Last administered on 12/07/16 08:12; Admin Dose 325 MG; Start 12/02/16 at 09:00 Folic Acid (Folic Acid) 1 mg DAILY PO Last administered on 12/07/16 08:12; Admin Dose 1 MG; Start 12/02/16 at 09:00 Senna (Senokot) 1 tab QHS PO Last administered on 12/06/16 20:50; Admin Dose 1 TAB; Start 12/01/16 at 21:00 Bisacodyl (Dulcolax Supp) 10 mg DAILY PRN [place] CONSTIPATION; Start 12/01/16 at 19 :00 Magnesium Hydroxide (Milk Of Mag) 30 ml BID PRN PO CONSTIPATION; Start at 19:00 Lactulose (Enulose) 20 gm DAILY PRN PO CONSTIPATION Last administered on 13:34; Admin Dose 20 GM; Start 12/01/16 at 19:00 Acetaminophen (Tylenol Tab) 650 mg Q4H PRN PO PAIN AND OR ELEVATED TEMP Last administered on 12/03/16 11:44; Admin Dose 650 MG; Start 12/01/16 at 19:00 Diphenhydramine HCl (Benadryl) 25 mg Q6H PRN PO ITCHING Last administered on 00:47; Admin Dose 25 MG; Start 12/01/16 at 21:00 Morphine Sulfate (Roxanol) 6 mg Q4 PRN PO PAIN Last administered on 12/06/16 20:50; Admin Dose 6 MG; Start 12/01/16 at 21:00 Patient Own Medication 1 ea BID@ PO Last administered on 12/07/16 08:11; Admin Dose 1 EA; Start 12/03/16 at 09:00 Docusate Sodium (Colace) 100 mg Q12H PO Last administered on 12/07/16 06:13; Admin Dose 100 MG; Start 12/05/16 at 19:00 Loratadine (Claritin) 10 mg DAILY GTB Last administered on 12/07/16 08:11; Admin Dose 10 MG; Start 12/06/16 at 09:00 ILDA RUIZ MD Dec 07, 2016 13:26
--- NOTE | 2016-12-07 16:58 | CONS ---
Date/Time of Note Date/Time of Note DATE: 12/07/16 TIME: 16:58 Consult Date/Type/Reason Admit Date/Time Dec 01, 2016 at 16:25 Type of Consultation: internal medicine Subjective Patient comfortable this morning lying in bed no new events continues physical therapy Objective Vital Signs Date Time Temp Pulse Resp B/P Pulse Ox O2 Delivery O2 Flow Rate FiO2 12/07/16 07:30 98.4 86 18 151/70 93 12/06/16 11:17 21 12/05/16 08:00 Room Air Intake and Output 12/06/16 12/06/16 12/07/16 15:00 23:00 07:00 Intake Total 480 ml 240 ml 1040 ml Output Total 650 ml 650 ml 200 ml Balance -170 ml -410 ml 840 ml Exam GENERAL: Well-nourished well-developed lady comfortable at rest VITAL SIGNS: per chart NECK: Supple. No JVD or lymphadenopathy. CARDIAC EXAM: S1, S2. No added sounds or murmurs. CHEST: clear bilaterally, No added sounds, rales or wheezes ABDOMEN: Soft, nontender. No guarding or rebound. EXTREMITIES: No cyanosis, clubbing or edema. NEUROLOGIC: Generalized weakness. No focal deficits. Results/Medications Result Diagram: 12/04/16 1340 Medications Current Medications Ferrous Sulfate (Ferrous Sulfate (Ec)) 325 mg DAILY PO Last administered on 08:12; Admin Dose 325 MG; Start 12/02/16 at 09:00; Stop 12/31/16 at 08: 59 Tramadol HCl (Ultram) 50 mg TID PRN PO PAIN Last administered on 12/06/16 17: 02; Admin Dose 50 MG; Start 12/01/16 at 19:00 Venlafaxine HCl (Effexor Xr) 150 mg DAILY PO Last administered on 12/07/16 08: 12; Admin Dose 150 MG; Start 12/02/16 at 09:00 Cholecalciferol (Vitamin D) 2,000 unit DAILY PO Last administered on 12/07/16 08:12; Admin Dose 2,000 UNIT; Start 12/02/16 at 09:00 Multivitamins/ Minerals (Theragran-M) 1 tab DAILY PO Last administered on 08:12; Admin Dose 1 TAB; Start 12/02/16 at 09:00 Calcium/Vitamin D (Oyster Shell/ Vit-D (500/200)) 1 tab DAILY PO Last administered on 12/07/16 08:12; Admin Dose 1 TAB; Start 12/02/16 at 09:00 Acetaminophen/ Hydrocodone Bitart ([place] (5/325)) 1 tab Q6H PRN PO PAIN Last administered on 12/07/16 12:00; Admin Dose 1 TAB; Start 12/01/16 at 19:00 Lorazepam (Ativan) 1 mg QHS PRN PO SLEEP Last administered on 12/06/16 21:51; Admin Dose 1 MG; Start 12/01/16 at 19:00 Nitroglycerin (Nitroglycerin (Sl Tab) 0.4 Mg) 1 tab Q5M PRN SL CHEST PAIN; Start 12/01/16 at 19:00 Pantoprazole (Protonix Tab) 40 mg DAILY@06 PO Last administered on 12/07/16 06 :13; Admin Dose 40 MG; Start 12/02/16 at 06:00 Aspirin (Aspirin) 325 mg DAILY PO Last administered on 12/07/16 08:12; Admin Dose 325 MG; Start 12/02/16 at 09:00 Folic Acid (Folic Acid) 1 mg DAILY PO Last administered on 12/07/16 08:12; Admin Dose 1 MG; Start 12/02/16 at 09:00 Senna (Senokot) 1 tab QHS PO Last administered on 12/06/16 20:50; Admin Dose 1 TAB; Start 12/01/16 at 21:00 Bisacodyl (Dulcolax Supp) 10 mg DAILY PRN [place] CONSTIPATION; Start 12/01/16 at 19 :00 Magnesium Hydroxide (Milk Of Mag) 30 ml BID PRN PO CONSTIPATION; Start at 19:00 Lactulose (Enulose) 20 gm DAILY PRN PO CONSTIPATION Last administered on 13:34; Admin Dose 20 GM; Start 12/01/16 at 19:00 Acetaminophen (Tylenol Tab) 650 mg Q4H PRN PO PAIN AND OR ELEVATED TEMP Last administered on 12/03/16 11:44; Admin Dose 650 MG; Start 12/01/16 at 19:00 Diphenhydramine HCl (Benadryl) 25 mg Q6H PRN PO ITCHING Last administered on 00:47; Admin Dose 25 MG; Start 12/01/16 at 21:00 Morphine Sulfate (Roxanol) 6 mg Q4 PRN PO PAIN Last administered on 12/06/16 20:50; Admin Dose 6 MG; Start 12/01/16 at 21:00 Patient Own Medication 1 ea BID@ PO Last administered on 12/07/16 08:11; Admin Dose 1 EA; Start 12/03/16 at 09:00 Docusate Sodium (Colace) 100 mg Q12H PO Last administered on 12/07/16 06:13; Admin Dose 100 MG; Start 12/05/16 at 19:00 Loratadine (Claritin) 10 mg DAILY GTB Last administered on 12/07/16 08:11; Admin Dose 10 MG; Start 12/06/16 at 09:00 Assessment/Plan Chief Complaint/Hosp Course IMPRESSION 1. Recent fall. 2. Femoral fracture status post nailing. 3. History of anxiety disorder. 4. History of depression. 5. History of asthma, currently stable. 6. Postoperative anemia PLAN: 1. Continue physical therapy. 2. Continue DVT and GI prophylaxis. 3. Continue iron replacement. Monitor H&H 4. Continue bronchodilators as needed. 5. Psychology recommendations Problems: LEIGHA CALL MD, [facility] Dec 07, 2016 16:58
[2016-12-07 19:24] VITALS: BP 156/72; RESP 18
[2016-12-07] MEDS: SENNA TAB PO SCH (20:50)
[2016-12-07] MEDS: morphine LIQ (20 MG/ML PO SYG) PO PRN (21:04)
[2016-12-07] MEDS: LORAZEPAM 1 MG TAB PO PRN (22:05)
[2016-12-08] MEDS: PANTOPRAZOLE (EC) 40 MG TAB PO SCH (05:39)
[2016-12-08] MEDS: HYDROCODONE/APAP (5/325) TAB PO PRN ×3 (05:39→17:58)
[2016-12-08 06:41] LABS: ADD SCAN DIFF NO
[2016-12-08 06:56] LABS: BASOPHILS % 0.5 % (0.0-2.0); EOSINOPHILS # 0.4 10^3/ul (0.0-0.5); HEMATOCRIT 28.2 % (37.0-47.0); HEMOGLOBIN 8.5 g/dl (12.0-16.0); LYMPHOCYTES # 1.9 10^3/ul (0.8-2.9); LYMPHOCYTES % 23.2 % (15.0-51.0); MEAN CORPUSCULAR HEMOGLOBIN 20.3 pg (29.0-33.0); MEAN CORPUSCULAR HGB CONC 30.1 g/dl (32.0-37.0); MEAN CORPUSCULAR VOLUME 67.5 fl (82.0-101.0); MEAN PLATELET VOLUME 10.2 fl (7.4-10.4); MONOCYTE # 0.8 10^3/ul (0.3-0.9); MONOCYTES % 9.6 % (0.0-11.0); NEUTROPHIL # 5.1 10^3/ul (1.6-7.5); NEUTROPHILS % 61.2 % (39.0-77.0); PLATELET COUNT 333 10^3/UL (140-415); RED BLOOD COUNT 4.18 10^6/ul (4.20-5.40); WHITE BLOOD COUNT 8.3 10^3/ul (4.8-10.8)
[2016-12-08] MEDS: DOCUSATE SODIUM 100 MG CAP PO SCH ×2 (06:56→20:31)
[2016-12-08 08:02] VITALS: BP 150/72; RESP 18
[2016-12-08 08:03] LABS: POTASSIUM 3.6 mmol/L (3.5-5.1)
[2016-12-08 08:06] LABS: CALCIUM 8.4 mg/dl (8.4-10.2); CREATININE 0.83 mg/dl (0.44-1.00); PHOSPHORUS 4.5 mg/dl (2.5-4.9)
[2016-12-08 08:07] LABS: MAGNESIUM 2.1 mg/dl (1.7-2.5)
[2016-12-08] MEDS: CALCIUM/VITAMIN D (500/200) TAB PO SCH (09:21)
[2016-12-08] MEDS: FERROUS SULFATE (EC) 325 MG TAB PO SCH (09:21)
[2016-12-08] MEDS: VENLAFAXINE (XR) 75 MG CAP PO SCH (09:22)
[2016-12-08] MEDS: MULTIVITAMINS/MINERALS TAB PO SCH (09:22)
[2016-12-08] MEDS: LORATADINE 10 MG TAB GTB SCH (09:22)
[2016-12-08] MEDS: FOLIC ACID 1 MG TAB PO SCH (09:22)
[2016-12-08] MEDS: CHOLECALCIFEROL 2,000 UNIT CAP PO SCH (09:22)
[2016-12-08] MEDS: ASPIRIN 325 MG TAB PO SCH (09:22)
[2016-12-08] MEDS: traMADol 50 MG TAB PO PRN (09:29)
[2016-12-08] MEDS: NISOLDIPINE 8.5 MG PO SCH ×2 (09:30→17:59)
--- NOTE | 2016-12-08 10:51 | CONS ---
Date/Time of Note Date/Time of Note DATE: 12/08/16 TIME: 10:51 Consult Date/Type/Reason Admit Date/Time Dec 01, 2016 at 16:25 Type of Consultation: internal medicine Subjective Comfortable Objective pulm-cta abd-soft max/mod ambulation Vital Signs Date Time Temp Pulse Resp B/P Pulse Ox O2 Delivery O2 Flow Rate FiO2 12/08/16 08:02 98.4 84 18 150/72 97 12/06/16 11:17 21 12/05/16 08:00 Room Air Intake and Output 12/07/16 12/07/16 12/08/16 14:59 22:59 06:59 Intake Total 680 ml 600 ml Balance 680 ml 600 ml Results/Medications Result Diagram: 12/08/16 0557 12/08/16 0557 Results 24 hrs Laboratory Tests Test 12/08/16 05:57 White Blood Count 8.3 Red Blood Count 4.18 L Hemoglobin 8.5 L Hematocrit 28.2 L Mean Corpuscular Volume 67.5 L Mean Corpuscular Hemoglobin 20.3 L Mean Corpuscular Hemoglobin Concent 30.1 L Red Cell Distribution Width 19.0 H Platelet Count 333 Mean Platelet Volume 10.2 Neutrophils % 61.2 Lymphocytes % 23.2 Monocytes % 9.6 Eosinophils % 5.0 Basophils % 0.5 Nucleated Red Blood Cells % 0.0 Neutrophils # 5.1 Lymphocytes # 1.9 Monocytes # 0.8 Eosinophils # 0.4 Basophils # 0.0 Nucleated Red Blood Cells # 0.0 Sodium Level 137 Potassium Level 3.6 Chloride Level 99 Carbon Dioxide Level 31 Anion Gap 11 Blood Urea Nitrogen 21 H Creatinine 0.83 Glucose Level 102 Calcium Level 8.4 Phosphorus Level 4.5 Magnesium Level 2.1 Medications Current Medications Ferrous Sulfate (Ferrous Sulfate (Ec)) 325 mg DAILY PO Last administered on 09:21; Admin Dose 325 MG; Start 12/02/16 at 09:00; Stop 12/31/16 at 08: 59 Tramadol HCl (Ultram) 50 mg TID PRN PO PAIN Last administered on 12/08/16 09: 29; Admin Dose 50 MG; Start 12/01/16 at 19:00 Venlafaxine HCl (Effexor Xr) 150 mg DAILY PO Last administered on 12/08/16 09: 22; Admin Dose 150 MG; Start 12/02/16 at 09:00 Cholecalciferol (Vitamin D) 2,000 unit DAILY PO Last administered on 12/08/16 09:22; Admin Dose 2,000 UNIT; Start 12/02/16 at 09:00 Multivitamins/ Minerals (Theragran-M) 1 tab DAILY PO Last administered on 09:22; Admin Dose 1 TAB; Start 12/02/16 at 09:00 Calcium/Vitamin D (Oyster Shell/ Vit-D (500/200)) 1 tab DAILY PO Last administered on 12/08/16 09:21; Admin Dose 1 TAB; Start 12/02/16 at 09:00 Acetaminophen/ Hydrocodone Bitart ([place] (5/325)) 1 tab Q6H PRN PO PAIN Last administered on 12/08/16 05:39; Admin Dose 1 TAB; Start 12/01/16 at 19:00 Lorazepam (Ativan) 1 mg QHS PRN PO SLEEP Last administered on 12/07/16 22:05; Admin Dose 1 MG; Start 12/01/16 at 19:00 Nitroglycerin (Nitroglycerin (Sl Tab) 0.4 Mg) 1 tab Q5M PRN SL CHEST PAIN; Start 12/01/16 at 19:00 Pantoprazole (Protonix Tab) 40 mg DAILY@06 PO Last administered on 12/08/16 05 :39; Admin Dose 40 MG; Start 12/02/16 at 06:00 Aspirin (Aspirin) 325 mg DAILY PO Last administered on 12/08/16 09:22; Admin Dose 325 MG; Start 12/02/16 at 09:00 Folic Acid (Folic Acid) 1 mg DAILY PO Last administered on 12/08/16 09:22; Admin Dose 1 MG; Start 12/02/16 at 09:00 Senna (Senokot) 1 tab QHS PO Last administered on 12/06/16 20:50; Admin Dose 1 TAB; Start 12/01/16 at 21:00 Bisacodyl (Dulcolax Supp) 10 mg DAILY PRN [place] CONSTIPATION; Start 12/01/16 at 19 :00 Magnesium Hydroxide (Milk Of Mag) 30 ml BID PRN PO CONSTIPATION; Start at 19:00 Lactulose (Enulose) 20 gm DAILY PRN PO CONSTIPATION Last administered on 13:34; Admin Dose 20 GM; Start 12/01/16 at 19:00 Acetaminophen (Tylenol Tab) 650 mg Q4H PRN PO PAIN AND OR ELEVATED TEMP Last administered on 12/03/16 11:44; Admin Dose 650 MG; Start 12/01/16 at 19:00 Diphenhydramine HCl (Benadryl) 25 mg Q6H PRN PO ITCHING Last administered on 00:47; Admin Dose 25 MG; Start 12/01/16 at 21:00 Morphine Sulfate (Roxanol) 6 mg Q4 PRN PO PAIN Last administered on 12/07/16 21:04; Admin Dose 6 MG; Start 12/01/16 at 21:00 Patient Own Medication 1 ea BID@ PO Last administered on 12/08/16 09:30; Admin Dose 1 EA; Start 12/03/16 at 09:00 Docusate Sodium (Colace) 100 mg Q12H PO Last administered on 12/08/16 06:56; Admin Dose 100 MG; Start 12/05/16 at 19:00 Loratadine (Claritin) 10 mg DAILY GTB Last administered on 12/08/16 09:22; Admin Dose 10 MG; Start 12/06/16 at 09:00 Assessment/Plan Additional Assessment/Plan Rehab- L commun oblique prox mid femoral fx-s/p IMN Continue rehab therapies anemia- monitor HTN GERD anxiety; depression ILDA RUIZ MD Dec 08, 2016 10:51
--- NOTE | 2016-12-08 11:40 | CONS ---
Date/Time of Note Date/Time of Note DATE: 12/08/16 TIME: 11:39 Consult Date/Type/Reason Admit Date/Time Dec 01, 2016 at 16:25 Type of Consultation: internal medicine Subjective Patient comfortable this morning continues physical therapy Objective Vital Signs Date Time Temp Pulse Resp B/P Pulse Ox O2 Delivery O2 Flow Rate FiO2 12/08/16 08:02 98.4 84 18 150/72 97 12/06/16 11:17 21 12/05/16 08:00 Room Air Intake and Output 12/07/16 12/07/16 12/08/16 15:00 23:00 07:00 Intake Total 680 ml 600 ml Balance 680 ml 600 ml Exam GENERAL: Well-nourished well-developed lady comfortable at rest VITAL SIGNS: per chart NECK: Supple. No JVD or lymphadenopathy. CARDIAC EXAM: S1, S2. No added sounds or murmurs. CHEST: clear bilaterally, No added sounds, rales or wheezes ABDOMEN: Soft, nontender. No guarding or rebound. EXTREMITIES: No cyanosis, clubbing or edema. NEUROLOGIC: Generalized weakness. No focal deficits. Results/Medications Result Diagram: 12/08/16 0557 12/08/16 0557 Results 24 hrs Laboratory Tests Test 12/08/16 05:57 White Blood Count 8.3 Red Blood Count 4.18 L Hemoglobin 8.5 L Hematocrit 28.2 L Mean Corpuscular Volume 67.5 L Mean Corpuscular Hemoglobin 20.3 L Mean Corpuscular Hemoglobin Concent 30.1 L Red Cell Distribution Width 19.0 H Platelet Count 333 Mean Platelet Volume 10.2 Neutrophils % 61.2 Lymphocytes % 23.2 Monocytes % 9.6 Eosinophils % 5.0 Basophils % 0.5 Nucleated Red Blood Cells % 0.0 Neutrophils # 5.1 Lymphocytes # 1.9 Monocytes # 0.8 Eosinophils # 0.4 Basophils # 0.0 Nucleated Red Blood Cells # 0.0 Sodium Level 137 Potassium Level 3.6 Chloride Level 99 Carbon Dioxide Level 31 Anion Gap 11 Blood Urea Nitrogen 21 H Creatinine 0.83 Glucose Level 102 Calcium Level 8.4 Phosphorus Level 4.5 Magnesium Level 2.1 Medications Current Medications Ferrous Sulfate (Ferrous Sulfate (Ec)) 325 mg DAILY PO Last administered on t 09:21; Admin Dose 325 MG; Start 12/02/16 at 09:00; Stop 12/31/16 at 08: 59 Tramadol HCl (Ultram) 50 mg TID PRN PO PAIN Last administered on 12/08/16 09: 29; Admin Dose 50 MG; Start 12/01/16 at 19:00 Venlafaxine HCl (Effexor Xr) 150 mg DAILY PO Last administered on 12/08/16 09: 22; Admin Dose 150 MG; Start 12/02/16 at 09:00 Cholecalciferol (Vitamin D) 2,000 unit DAILY PO Last administered on 12/08/16 09:22; Admin Dose 2,000 UNIT; Start 12/02/16 at 09:00 Multivitamins/ Minerals (Theragran-M) 1 tab DAILY PO Last administered on 09:22; Admin Dose 1 TAB; Start 12/02/16 at 09:00 Calcium/Vitamin D (Oyster Shell/ Vit-D (500/200)) 1 tab DAILY PO Last administered on 12/08/16 09:21; Admin Dose 1 TAB; Start 12/02/16 at 09:00 Acetaminophen/ Hydrocodone Bitart ([place] (5/325)) 1 tab Q6H PRN PO PAIN Last administered on 12/08/16 11:29; Admin Dose 1 TAB; Start 12/01/16 at 19:00 Lorazepam (Ativan) 1 mg QHS PRN PO SLEEP Last administered on 12/07/16 22:05; Admin Dose 1 MG; Start 12/01/16 at 19:00 Nitroglycerin (Nitroglycerin (Sl Tab) 0.4 Mg) 1 tab Q5M PRN SL CHEST PAIN; Start 12/01/16 at 19:00 Pantoprazole (Protonix Tab) 40 mg DAILY@06 PO Last administered on 12/08/16 05 :39; Admin Dose 40 MG; Start 12/02/16 at 06:00 Aspirin (Aspirin) 325 mg DAILY PO Last administered on 12/08/16 09:22; Admin Dose 325 MG; Start 12/02/16 at 09:00 Folic Acid (Folic Acid) 1 mg DAILY PO Last administered on 12/08/16 09:22; Admin Dose 1 MG; Start 12/02/16 at 09:00 Senna (Senokot) 1 tab QHS PO Last administered on 12/06/16 20:50; Admin Dose 1 TAB; Start 12/01/16 at 21:00 Bisacodyl (Dulcolax Supp) 10 mg DAILY PRN [place] CONSTIPATION; Start 12/01/16 at 19 :00 Magnesium Hydroxide (Milk Of Mag) 30 ml BID PRN PO CONSTIPATION; Start at 19:00 Lactulose (Enulose) 20 gm DAILY PRN PO CONSTIPATION Last administered on 13:34; Admin Dose 20 GM; Start 12/01/16 at 19:00 Acetaminophen (Tylenol Tab) 650 mg Q4H PRN PO PAIN AND OR ELEVATED TEMP Last administered on 12/03/16 11:44; Admin Dose 650 MG; Start 12/01/16 at 19:00 Diphenhydramine HCl (Benadryl) 25 mg Q6H PRN PO ITCHING Last administered on 00:47; Admin Dose 25 MG; Start 12/01/16 at 21:00 Morphine Sulfate (Roxanol) 6 mg Q4 PRN PO PAIN Last administered on 12/07/16 21:04; Admin Dose 6 MG; Start 12/01/16 at 21:00 Patient Own Medication 1 ea BID@ PO Last administered on 12/08/16 09:30; Admin Dose 1 EA; Start 12/03/16 at 09:00 Docusate Sodium (Colace) 100 mg Q12H PO Last administered on 12/08/16 06:56; Admin Dose 100 MG; Start 12/05/16 at 19:00 Loratadine (Claritin) 10 mg DAILY GTB Last administered on 12/08/16 09:22; Admin Dose 10 MG; Start 12/06/16 at 09:00 Assessment/Plan Chief Complaint/Hosp Course IMPRESSION 1. Recent fall. 2. Femoral fracture status post nailing. 3. History of anxiety disorder. 4. History of depression. 5. History of asthma, currently stable. 6. Postoperative anemia PLAN: 1. Continue physical therapy. 2. Continue DVT and GI prophylaxis. 3. Continue iron replacement. Monitor H&H 4. Continue bronchodilators as needed. 5. Psychology recommendations Problems: LEIGHA CALL MD, [facility] Dec 08, 2016 11:40
[2016-12-08 20:01] VITALS: BP 153/78; RESP 19
[2016-12-08] MEDS: SENNA TAB PO SCH (20:31)
[2016-12-08] MEDS: morphine LIQ (20 MG/ML PO SYG) PO PRN (20:36)
[2016-12-08] MEDS: LORAZEPAM 1 MG TAB PO PRN (21:27)
[2016-12-09] MEDS: HYDROCODONE/APAP (5/325) TAB PO PRN ×4 (00:19→20:31)
[2016-12-09] MEDS: PANTOPRAZOLE (EC) 40 MG TAB PO SCH (06:18)
[2016-12-09] MEDS: DOCUSATE SODIUM 100 MG CAP PO SCH ×2 (06:18→18:00)
[2016-12-09] MEDS: NISOLDIPINE 8.5 MG PO SCH ×3 (07:24→16:43)
[2016-12-09 08:07] VITALS: BP 140/67; RESP 18
[2016-12-09] MEDS: CHOLECALCIFEROL 2,000 UNIT CAP PO SCH (08:35)
[2016-12-09] MEDS: CALCIUM/VITAMIN D (500/200) TAB PO SCH (08:35)
[2016-12-09] MEDS: ASPIRIN 325 MG TAB PO SCH (08:35)
[2016-12-09] MEDS: LORATADINE 10 MG TAB GTB SCH (08:35)
[2016-12-09] MEDS: VENLAFAXINE (XR) 75 MG CAP PO SCH (08:35)
[2016-12-09] MEDS: FOLIC ACID 1 MG TAB PO SCH (08:35)
[2016-12-09] MEDS: MULTIVITAMINS/MINERALS TAB PO SCH (08:35)
[2016-12-09] MEDS: FERROUS SULFATE (EC) 325 MG TAB PO SCH (08:40)
[2016-12-09 09:49] VITALS: BP 134/60; RESP 18
[2016-12-09] MEDS: morphine LIQ (20 MG/ML PO SYG) PO PRN ×2 (10:58→21:40)
--- NOTE | 2016-12-09 12:26 | CONS ---
Date/Time of Note Date/Time of Note DATE: 12/09/16 TIME: 12:25 Consult Date/Type/Reason Admit Date/Time Dec 01, 2016 at 16:25 Type of Consultation: internal medicine Subjective Pain decreasing Objective pulm-cta mod/max ambulation Vital Signs Date Time Temp Pulse Resp B/P Pulse Ox O2 Delivery O2 Flow Rate FiO2 12/09/16 09:49 98.3 86 18 134/60 98 12/06/16 11:17 21 12/05/16 08:00 Room Air Intake and Output 12/08/16 12/08/16 12/09/16 14:59 22:59 06:59 Intake Total 600 ml 240 ml 1000 ml Output Total 500 ml Balance 100 ml 240 ml 1000 ml Results/Medications Result Diagram: 12/08/16 0557 12/08/16 0557 Medications Current Medications Ferrous Sulfate (Ferrous Sulfate (Ec)) 325 mg DAILY PO Last administered on 08:40; Admin Dose 325 MG; Start 12/02/16 at 09:00; Stop 12/31/16 at 08: 59 Tramadol HCl (Ultram) 50 mg TID PRN PO PAIN Last administered on 12/08/16 09: 29; Admin Dose 50 MG; Start 12/01/16 at 19:00 Venlafaxine HCl (Effexor Xr) 150 mg DAILY PO Last administered on 12/09/16 08: 35; Admin Dose 150 MG; Start 12/02/16 at 09:00 Cholecalciferol (Vitamin D) 2,000 unit DAILY PO Last administered on 12/09/16 08:35; Admin Dose 2,000 UNIT; Start 12/02/16 at 09:00 Multivitamins/ Minerals (Theragran-M) 1 tab DAILY PO Last administered on 08:35; Admin Dose 1 TAB; Start 12/02/16 at 09:00 Calcium/Vitamin D (Oyster Shell/ Vit-D (500/200)) 1 tab DAILY PO Last administered on 12/09/16 08:35; Admin Dose 1 TAB; Start 12/02/16 at 09:00 Acetaminophen/ Hydrocodone Bitart ([place] (5/325)) 1 tab Q6H PRN PO PAIN Last administered on 12/09/16 06:19; Admin Dose 1 TAB; Start 12/01/16 at 19:00 Lorazepam (Ativan) 1 mg QHS PRN PO SLEEP Last administered on 12/08/16 21:27; Admin Dose 1 MG; Start 12/01/16 at 19:00 Nitroglycerin (Nitroglycerin (Sl Tab) 0.4 Mg) 1 tab Q5M PRN SL CHEST PAIN; Start 12/01/16 at 19:00 Pantoprazole (Protonix Tab) 40 mg DAILY@06 PO Last administered on 12/09/16 06 :18; Admin Dose 40 MG; Start 12/02/16 at 06:00 Aspirin (Aspirin) 325 mg DAILY PO Last administered on 12/09/16 08:35; Admin Dose 325 MG; Start 12/02/16 at 09:00 Folic Acid (Folic Acid) 1 mg DAILY PO Last administered on 12/09/16 08:35; Admin Dose 1 MG; Start 12/02/16 at 09:00 Senna (Senokot) 1 tab QHS PO Last administered on 12/08/16 20:31; Admin Dose 1 TAB; Start 12/01/16 at 21:00 Bisacodyl (Dulcolax Supp) 10 mg DAILY PRN [place] CONSTIPATION; Start 12/01/16 at 19 :00 Magnesium Hydroxide (Milk Of Mag) 30 ml BID PRN PO CONSTIPATION; Start at 19:00 Lactulose (Enulose) 20 gm DAILY PRN PO CONSTIPATION Last administered on 13:34; Admin Dose 20 GM; Start 12/01/16 at 19:00 Acetaminophen (Tylenol Tab) 650 mg Q4H PRN PO PAIN AND OR ELEVATED TEMP Last administered on 12/03/16 11:44; Admin Dose 650 MG; Start 12/01/16 at 19:00 Diphenhydramine HCl (Benadryl) 25 mg Q6H PRN PO ITCHING Last administered on 00:47; Admin Dose 25 MG; Start 12/01/16 at 21:00 Morphine Sulfate (Roxanol) 6 mg Q4 PRN PO PAIN Last administered on 12/09/16 10:58; Admin Dose 6 MG; Start 12/01/16 at 21:00 Docusate Sodium (Colace) 100 mg Q12H PO Last administered on 12/09/16 06:18; Admin Dose 100 MG; Start 12/05/16 at 19:00 Loratadine (Claritin) 10 mg DAILY GTB Last administered on 12/09/16 08:35; Admin Dose 10 MG; Start 12/06/16 at 09:00 Patient Own Medication 1 ea BID@0630,1630 PO ; Start 12/09/16 at 16:30 Assessment/Plan Additional Assessment/Plan Rehab- L commun oblique prox mid femoral fx-s/p IMN Continue rehab program anemia- monitor HTN GERD anxiety; depression ILDA RUIZ MD Dec 09, 2016 12:26
[2016-12-09 13:41] VITALS: BP 130/62; PULSE 70; RESP 18
--- NOTE | 2016-12-09 14:30 | CONS ---
Date/Time of Note Date/Time of Note DATE: 12/09/16 TIME: 14:30 Consult Date/Type/Reason Admit Date/Time Dec 01, 2016 at 16:25 Type of Consultation: internal medicine Subjective Patient comfortable lying in bed Continues physical therapy Objective Vital Signs Date Time Temp Pulse Resp B/P Pulse Ox O2 Delivery O2 Flow Rate FiO2 12/09/16 09:49 98.3 86 18 134/60 98 12/06/16 11:17 21 12/05/16 08:00 Room Air Intake and Output 12/08/16 12/08/16 12/09/16 14:59 22:59 06:59 Intake Total 600 ml 240 ml 1000 ml Output Total 500 ml Balance 100 ml 240 ml 1000 ml Exam GENERAL: Well-nourished well-developed lady comfortable at rest VITAL SIGNS: per chart NECK: Supple. No JVD or lymphadenopathy. CARDIAC EXAM: S1, S2. No added sounds or murmurs. CHEST: clear bilaterally, No added sounds, rales or wheezes ABDOMEN: Soft, nontender. No guarding or rebound. EXTREMITIES: No cyanosis, clubbing or edema. NEUROLOGIC: Generalized weakness. No focal deficits. Results/Medications Result Diagram: 12/08/16 0557 12/08/16 0557 Medications Current Medications Ferrous Sulfate (Ferrous Sulfate (Ec)) 325 mg DAILY PO Last administered on 08:40; Admin Dose 325 MG; Start 12/02/16 at 09:00; Stop 12/31/16 at 08: 59 Tramadol HCl (Ultram) 50 mg TID PRN PO PAIN Last administered on 12/08/16 09: 29; Admin Dose 50 MG; Start 12/01/16 at 19:00 Venlafaxine HCl (Effexor Xr) 150 mg DAILY PO Last administered on 12/09/16 08: 35; Admin Dose 150 MG; Start 12/02/16 at 09:00 Cholecalciferol (Vitamin D) 2,000 unit DAILY PO Last administered on 12/09/16 08:35; Admin Dose 2,000 UNIT; Start 12/02/16 at 09:00 Multivitamins/ Minerals (Theragran-M) 1 tab DAILY PO Last administered on 08:35; Admin Dose 1 TAB; Start 12/02/16 at 09:00 Calcium/Vitamin D (Oyster Shell/ Vit-D (500/200)) 1 tab DAILY PO Last administered on 12/09/16 08:35; Admin Dose 1 TAB; Start 12/02/16 at 09:00 Acetaminophen/ Hydrocodone Bitart ([place] (5/325)) 1 tab Q6H PRN PO PAIN Last administered on 12/09/16 12:43; Admin Dose 1 TAB; Start 12/01/16 at 19:00 Lorazepam (Ativan) 1 mg QHS PRN PO SLEEP Last administered on 12/08/16 21:27; Admin Dose 1 MG; Start 12/01/16 at 19:00 Nitroglycerin (Nitroglycerin (Sl Tab) 0.4 Mg) 1 tab Q5M PRN SL CHEST PAIN; Start 12/01/16 at 19:00 Pantoprazole (Protonix Tab) 40 mg DAILY@06 PO Last administered on 12/09/16 06 :18; Admin Dose 40 MG; Start 12/02/16 at 06:00 Aspirin (Aspirin) 325 mg DAILY PO Last administered on 12/09/16 08:35; Admin Dose 325 MG; Start 12/02/16 at 09:00 Folic Acid (Folic Acid) 1 mg DAILY PO Last administered on 12/09/16 08:35; Admin Dose 1 MG; Start 12/02/16 at 09:00 Senna (Senokot) 1 tab QHS PO Last administered on 12/08/16 20:31; Admin Dose 1 TAB; Start 12/01/16 at 21:00 Bisacodyl (Dulcolax Supp) 10 mg DAILY PRN [place] CONSTIPATION; Start 12/01/16 at 19 :00 Magnesium Hydroxide (Milk Of Mag) 30 ml BID PRN PO CONSTIPATION; Start at 19:00 Lactulose (Enulose) 20 gm DAILY PRN PO CONSTIPATION Last administered on 13:34; Admin Dose 20 GM; Start 12/01/16 at 19:00 Acetaminophen (Tylenol Tab) 650 mg Q4H PRN PO PAIN AND OR ELEVATED TEMP Last administered on 12/03/16 11:44; Admin Dose 650 MG; Start 12/01/16 at 19:00 Diphenhydramine HCl (Benadryl) 25 mg Q6H PRN PO ITCHING Last administered on 00:47; Admin Dose 25 MG; Start 12/01/16 at 21:00 Morphine Sulfate (Roxanol) 6 mg Q4 PRN PO PAIN Last administered on 12/09/16 10:58; Admin Dose 6 MG; Start 12/01/16 at 21:00 Docusate Sodium (Colace) 100 mg Q12H PO Last administered on 12/09/16 06:18; Admin Dose 100 MG; Start 12/05/16 at 19:00 Loratadine (Claritin) 10 mg DAILY GTB Last administered on 12/09/16 08:35; Admin Dose 10 MG; Start 12/06/16 at 09:00 Patient Own Medication 1 ea BID@0630,1630 PO ; Start 12/09/16 at 16:30 Assessment/Plan Chief Complaint/Hosp Course IMPRESSION 1. Recent fall. 2. Femoral fracture status post nailing. 3. History of anxiety disorder. 4. History of depression. 5. History of asthma, currently stable. 6. Postoperative anemia PLAN: 1. Continue physical therapy. 2. Continue DVT and GI prophylaxis. 3. Continue iron replacement. Monitor H&H 4. Continue bronchodilators as needed. 5. Psychology recommendations Problems: LEIGHA CALL MD, [facility] Dec 09, 2016 14:30
[2016-12-09] MEDS: traMADol 50 MG TAB PO PRN (17:17)
--- NOTE | 2016-12-09 17:22 | PN ---
DATE: 12/09/2016 PSYCHOLOGY--INDIVIDUAL SESSION--[id number] The patient was seen up in her wheelchair. The patient reports that she is still feeling frustrated . The patient feels like she is making progress, but she is still unable to walk at the present jarrell e. The patient does need encouragement, and I did work with her to try to help her mood and encoura ge her to continue to work on her physical abilities. The patient is motivated to get better and do es want to function as well as she can. The patient is motivated to return to her previous level of functioning. Dictated By: KAYCE GOYAL PHD JAYJAY/CHARMAINE Conf#: [id number] DID#: [id number]
[2016-12-09 19:22] VITALS: BP 140/68; RESP 20
[2016-12-09] MEDS: LORAZEPAM 1 MG TAB PO PRN (20:30)
[2016-12-09] MEDS: SENNA TAB PO SCH (20:30)
[2016-12-10] MEDS: PANTOPRAZOLE (EC) 40 MG TAB PO SCH (05:59)
[2016-12-10] MEDS: HYDROCODONE/APAP (5/325) TAB PO PRN ×3 (05:59→21:39)
[2016-12-10] MEDS: DOCUSATE SODIUM 100 MG CAP PO SCH ×2 (06:00→18:19)
[2016-12-10] MEDS: NISOLDIPINE 8.5 MG PO SCH ×2 (06:00→17:05)
[2016-12-10 07:30] VITALS: BP 134/63; RESP 18
[2016-12-10] MEDS: CALCIUM/VITAMIN D (500/200) TAB PO SCH (08:45)
[2016-12-10] MEDS: VENLAFAXINE (XR) 75 MG CAP PO SCH (08:45)
[2016-12-10] MEDS: FERROUS SULFATE (EC) 325 MG TAB PO SCH (08:45)
[2016-12-10] MEDS: MULTIVITAMINS/MINERALS TAB PO SCH (08:45)
[2016-12-10] MEDS: ASPIRIN 325 MG TAB PO SCH (08:46)
[2016-12-10] MEDS: LORATADINE 10 MG TAB GTB SCH (08:46)
[2016-12-10] MEDS: traMADol 50 MG TAB PO PRN ×2 (08:46→17:02)
[2016-12-10] MEDS: FOLIC ACID 1 MG TAB PO SCH (08:46)
[2016-12-10] MEDS: CHOLECALCIFEROL 2,000 UNIT CAP PO SCH (08:46)
--- NOTE | 2016-12-10 10:42 | CONS ---
Date/Time of Note Date/Time of Note DATE: 12/10/16 TIME: 10:41 Consult Date/Type/Reason Admit Date/Time Dec 01, 2016 at 16:25 Type of Consultation: internal medicine Subjective Complaining of pain in her legs this morning Continues physical therapy Objective Vital Signs Date Time Temp Pulse Resp B/P Pulse Ox O2 Delivery O2 Flow Rate FiO2 12/09/16 19:22 98.3 89 20 140/68 95 12/06/16 11:17 21 Intake and Output 12/09/16 12/09/16 12/10/16 15:00 23:00 07:00 Intake Total 600 ml 1160 ml 950 ml Balance 600 ml 1160 ml 950 ml Exam GENERAL: Well-nourished well-developed lady comfortable at rest VITAL SIGNS: per chart NECK: Supple. No JVD or lymphadenopathy. CARDIAC EXAM: S1, S2. No added sounds or murmurs. CHEST: clear bilaterally, No added sounds, rales or wheezes ABDOMEN: Soft, nontender. No guarding or rebound. EXTREMITIES: No cyanosis, clubbing or edema. NEUROLOGIC: Generalized weakness. No focal deficits. Results/Medications Result Diagram: 12/08/16 0557 12/08/16 0557 Medications Current Medications Ferrous Sulfate (Ferrous Sulfate (Ec)) 325 mg DAILY PO Last administered on 08:45; Admin Dose 325 MG; Start 12/02/16 at 09:00; Stop 12/31/16 at 08: 59 Tramadol HCl (Ultram) 50 mg TID PRN PO PAIN Last administered on 12/10/16 08: 46; Admin Dose 50 MG; Start 12/01/16 at 19:00 Venlafaxine HCl (Effexor Xr) 150 mg DAILY PO Last administered on 12/10/16 08: 45; Admin Dose 150 MG; Start 12/02/16 at 09:00 Cholecalciferol (Vitamin D) 2,000 unit DAILY PO Last administered on 12/10/16 08:46; Admin Dose 2,000 UNIT; Start 12/02/16 at 09:00 Multivitamins/ Minerals (Theragran-M) 1 tab DAILY PO Last administered on 08:45; Admin Dose 1 TAB; Start 12/02/16 at 09:00 Calcium/Vitamin D (Oyster Shell/ Vit-D (500/200)) 1 tab DAILY PO Last administered on 12/10/16 08:45; Admin Dose 1 TAB; Start 12/02/16 at 09:00 Acetaminophen/ Hydrocodone Bitart ([place] (5/325)) 1 tab Q6H PRN PO PAIN Last administered on 12/10/16 05:59; Admin Dose 1 TAB; Start 12/01/16 at 19:00 Lorazepam (Ativan) 1 mg QHS PRN PO SLEEP Last administered on 12/09/16 20:30; Admin Dose 1 MG; Start 12/01/16 at 19:00 Nitroglycerin (Nitroglycerin (Sl Tab) 0.4 Mg) 1 tab Q5M PRN SL CHEST PAIN; Start 12/01/16 at 19:00 Pantoprazole (Protonix Tab) 40 mg DAILY@06 PO Last administered on 12/10/16 05 :59; Admin Dose 40 MG; Start 12/02/16 at 06:00 Aspirin (Aspirin) 325 mg DAILY PO Last administered on 12/10/16 08:46; Admin Dose 325 MG; Start 12/02/16 at 09:00 Folic Acid (Folic Acid) 1 mg DAILY PO Last administered on 12/10/16 08:46; Admin Dose 1 MG; Start 12/02/16 at 09:00 Senna (Senokot) 1 tab QHS PO Last administered on 12/09/16 20:30; Admin Dose 1 TAB; Start 12/01/16 at 21:00 Bisacodyl (Dulcolax Supp) 10 mg DAILY PRN [place] CONSTIPATION; Start 12/01/16 at 19 :00 Magnesium Hydroxide (Milk Of Mag) 30 ml BID PRN PO CONSTIPATION; Start at 19:00 Lactulose (Enulose) 20 gm DAILY PRN PO CONSTIPATION Last administered on 13:34; Admin Dose 20 GM; Start 12/01/16 at 19:00 Acetaminophen (Tylenol Tab) 650 mg Q4H PRN PO PAIN AND OR ELEVATED TEMP Last administered on 12/03/16 11:44; Admin Dose 650 MG; Start 12/01/16 at 19:00 Diphenhydramine HCl (Benadryl) 25 mg Q6H PRN PO ITCHING Last administered on 00:47; Admin Dose 25 MG; Start 12/01/16 at 21:00 Morphine Sulfate (Roxanol) 6 mg Q4 PRN PO PAIN Last administered on 12/09/16 21:40; Admin Dose 6 MG; Start 12/01/16 at 21:00 Docusate Sodium (Colace) 100 mg Q12H PO Last administered on 12/10/16 06:00; Admin Dose 100 MG; Start 12/05/16 at 19:00 Loratadine (Claritin) 10 mg DAILY GTB Last administered on 12/10/16 08:46; Admin Dose 10 MG; Start 12/06/16 at 09:00 Patient Own Medication 1 ea BID@0630,1630 PO Last administered on 12/10/16 06: 00; Admin Dose 1 EA; Start 12/09/16 at 16:30 Assessment/Plan Chief Complaint/Hosp Course IMPRESSION 1. Recent fall. 2. Femoral fracture status post nailing. 3. History of anxiety disorder. 4. History of depression. 5. History of asthma, currently stable. 6. Postoperative anemia PLAN: 1. Continue physical therapy. 2. Continue DVT and GI prophylaxis. 3. Continue iron replacement. Monitor H&H 4. Continue bronchodilators as needed. 5. Psychology recommendations Problems: [facility]IG[facility] CALL [facility], [facility] Dec 10, 2016 10:41
--- NOTE | 2016-12-10 11:53 | CONS ---
Date/Time of Note Date/Time of Note DATE: 12/10/16 TIME: 11:52 Consult Date/Type/Reason Admit Date/Time Dec 01, 2016 at 16:25 Type of Consultation: internal medicine Subjective She reports pain decreasing. Objective pulm-cta abd-soft cga 150 feet Vital Signs Date Time Temp Pulse Resp B/P Pulse Ox O2 Delivery O2 Flow Rate FiO2 12/09/16 19:22 98.3 89 20 140/68 95 12/06/16 11:17 21 Intake and Output 12/09/16 12/09/16 12/10/16 14:59 22:59 06:59 Intake Total 600 ml 1160 ml 950 ml Balance 600 ml 1160 ml 950 ml Results/Medications Result Diagram: 12/08/16 0557 12/08/16 0557 Medications Current Medications Ferrous Sulfate (Ferrous Sulfate (Ec)) 325 mg DAILY PO Last administered on 08:45; Admin Dose 325 MG; Start 12/02/16 at 09:00; Stop 12/31/16 at 08: 59 Tramadol HCl (Ultram) 50 mg TID PRN PO PAIN Last administered on 12/10/16 08: 46; Admin Dose 50 MG; Start 12/01/16 at 19:00 Venlafaxine HCl (Effexor Xr) 150 mg DAILY PO Last administered on 12/10/16 08: 45; Admin Dose 150 MG; Start 12/02/16 at 09:00 Cholecalciferol (Vitamin D) 2,000 unit DAILY PO Last administered on 12/10/16 08:46; Admin Dose 2,000 UNIT; Start 12/02/16 at 09:00 Multivitamins/ Minerals (Theragran-M) 1 tab DAILY PO Last administered on 08:45; Admin Dose 1 TAB; Start 12/02/16 at 09:00 Calcium/Vitamin D (Oyster Shell/ Vit-D (500/200)) 1 tab DAILY PO Last administered on 12/10/16 08:45; Admin Dose 1 TAB; Start 12/02/16 at 09:00 Acetaminophen/ Hydrocodone Bitart ([place] (5/325)) 1 tab Q6H PRN PO PAIN Last administered on 12/10/16 05:59; Admin Dose 1 TAB; Start 12/01/16 at 19:00 Lorazepam (Ativan) 1 mg QHS PRN PO SLEEP Last administered on 12/09/16 20:30; Admin Dose 1 MG; Start 12/01/16 at 19:00 Nitroglycerin (Nitroglycerin (Sl Tab) 0.4 Mg) 1 tab Q5M PRN SL CHEST PAIN; Start 12/01/16 at 19:00 Pantoprazole (Protonix Tab) 40 mg DAILY@06 PO Last administered on 12/10/16 05 :59; Admin Dose 40 MG; Start 12/02/16 at 06:00 Aspirin (Aspirin) 325 mg DAILY PO Last administered on 12/10/16 08:46; Admin Dose 325 MG; Start 12/02/16 at 09:00 Folic Acid (Folic Acid) 1 mg DAILY PO Last administered on 12/10/16 08:46; Admin Dose 1 MG; Start 12/02/16 at 09:00 Senna (Senokot) 1 tab QHS PO Last administered on 12/09/16 20:30; Admin Dose 1 TAB; Start 12/01/16 at 21:00 Bisacodyl (Dulcolax Supp) 10 mg DAILY PRN [place] CONSTIPATION; Start 12/01/16 at 19 :00 Magnesium Hydroxide (Milk Of Mag) 30 ml BID PRN PO CONSTIPATION; Start at 19:00 Lactulose (Enulose) 20 gm DAILY PRN PO CONSTIPATION Last administered on 13:34; Admin Dose 20 GM; Start 12/01/16 at 19:00 Acetaminophen (Tylenol Tab) 650 mg Q4H PRN PO PAIN AND OR ELEVATED TEMP Last administered on 12/03/16 11:44; Admin Dose 650 MG; Start 12/01/16 at 19:00 Diphenhydramine HCl (Benadryl) 25 mg Q6H PRN PO ITCHING Last administered on 00:47; Admin Dose 25 MG; Start 12/01/16 at 21:00 Morphine Sulfate (Roxanol) 6 mg Q4 PRN PO PAIN Last administered on 12/09/16 21:40; Admin Dose 6 MG; Start 12/01/16 at 21:00 Docusate Sodium (Colace) 100 mg Q12H PO Last administered on 12/10/16 06:00; Admin Dose 100 MG; Start 12/05/16 at 19:00 Loratadine (Claritin) 10 mg DAILY GTB Last administered on 12/10/16 08:46; Admin Dose 10 MG; Start 12/06/16 at 09:00 Patient Own Medication 1 ea BID@0630,1630 PO Last administered on 12/10/16 06: 00; Admin Dose 1 EA; Start 12/09/16 at 16:30 Assessment/Plan Additional Assessment/Plan Rehab- L commun oblique prox mid femoral fx-s/p IMN Continue rehab treatment plan. SW working with patient regarding dispo planning anemia- monitor HTN GERD anxiety; depression ILDA RUIZ MD Dec 10, 2016 11:53
[2016-12-10] MEDS: SENNA TAB PO SCH (20:42)
[2016-12-10] MEDS: morphine LIQ (20 MG/ML PO SYG) PO PRN (20:42)
[2016-12-10 21:15] VITALS: BP 138/58; RESP 18
[2016-12-10] MEDS: LORAZEPAM 1 MG TAB PO PRN (22:50)
[2016-12-11] MEDS: PANTOPRAZOLE (EC) 40 MG TAB PO SCH (06:34)
[2016-12-11] MEDS: traMADol 50 MG TAB PO PRN ×2 (06:35→20:11)
[2016-12-11] MEDS: NISOLDIPINE 8.5 MG PO SCH ×2 (06:46→18:08)
[2016-12-11] MEDS: DOCUSATE SODIUM 100 MG CAP PO SCH ×3 (07:00→18:08)
[2016-12-11 07:30] VITALS: BP_SYST 144; BP_SYST 146; BP_DIAS 65; BP_DIAS 71; RESP 18; RESP 20
[2016-12-11] MEDS: ASPIRIN 325 MG TAB PO SCH (08:26)
[2016-12-11] MEDS: CHOLECALCIFEROL 2,000 UNIT CAP PO SCH (08:26)
[2016-12-11] MEDS: FERROUS SULFATE (EC) 325 MG TAB PO SCH (08:27)
[2016-12-11] MEDS: FOLIC ACID 1 MG TAB PO SCH (08:27)
[2016-12-11] MEDS: LORATADINE 10 MG TAB GTB SCH (08:27)
[2016-12-11] MEDS: MULTIVITAMINS/MINERALS TAB PO SCH (08:27)
[2016-12-11] MEDS: CALCIUM/VITAMIN D (500/200) TAB PO SCH (08:27)
[2016-12-11] MEDS: VENLAFAXINE (XR) 75 MG CAP PO SCH (08:27)
[2016-12-11] MEDS: HYDROCODONE/APAP (5/325) TAB PO PRN ×2 (08:32→15:05)
--- NOTE | 2016-12-11 12:05 | CONS ---
Date/Time of Note Date/Time of Note DATE: 12/11/16 TIME: 12:00 Consult Date/Type/Reason Admit Date/Time Dec 01, 2016 at 16:25 Type of Consultation: internal medicine Subjective Comfortable Objective pulm-cta abd-soft sba 150 feet Vital Signs Date Time Temp Pulse Resp B/P Pulse Ox O2 Delivery O2 Flow Rate FiO2 12/11/16 07:30 98.5 87 18 146/65 92 Intake and Output 12/10/16 12/10/16 12/11/16 15:00 23:00 07:00 Intake Total 820 ml 850 ml Balance 820 ml 850 ml Results/Medications Result Diagram: 12/08/16 0557 12/08/16 0557 Medications Current Medications Ferrous Sulfate (Ferrous Sulfate (Ec)) 325 mg DAILY PO Last administered on 08:27; Admin Dose 325 MG; Start 12/02/16 at 09:00; Stop 12/31/16 at 08: 59 Tramadol HCl (Ultram) 50 mg TID PRN PO PAIN Last administered on 12/11/16 06: 35; Admin Dose 50 MG; Start 12/01/16 at 19:00 Venlafaxine HCl (Effexor Xr) 150 mg DAILY PO Last administered on 12/11/16 08: 27; Admin Dose 150 MG; Start 12/02/16 at 09:00 Cholecalciferol (Vitamin D) 2,000 unit DAILY PO Last administered on 12/11/16 08:26; Admin Dose 2,000 UNIT; Start 12/02/16 at 09:00 Multivitamins/ Minerals (Theragran-M) 1 tab DAILY PO Last administered on 08:27; Admin Dose 1 TAB; Start 12/02/16 at 09:00 Calcium/Vitamin D (Oyster Shell/ Vit-D (500/200)) 1 tab DAILY PO Last administered on 12/11/16 08:27; Admin Dose 1 TAB; Start 12/02/16 at 09:00 Acetaminophen/ Hydrocodone Bitart ([place] (5/325)) 1 tab Q6H PRN PO PAIN Last administered on 12/11/16 08:32; Admin Dose 1 TAB; Start 12/01/16 at 19:00 Lorazepam (Ativan) 1 mg QHS PRN PO SLEEP Last administered on 12/10/16 22:50; Admin Dose 1 MG; Start 12/01/16 at 19:00 Nitroglycerin (Nitroglycerin (Sl Tab) 0.4 Mg) 1 tab Q5M PRN SL CHEST PAIN; Start 12/01/16 at 19:00 Pantoprazole (Protonix Tab) 40 mg DAILY@06 PO Last administered on 12/11/16 06 :34; Admin Dose 40 MG; Start 12/02/16 at 06:00 Aspirin (Aspirin) 325 mg DAILY PO Last administered on 12/11/16 08:26; Admin Dose 325 MG; Start 12/02/16 at 09:00 Folic Acid (Folic Acid) 1 mg DAILY PO Last administered on 12/11/16 08:27; Admin Dose 1 MG; Start 12/02/16 at 09:00 Senna (Senokot) 1 tab QHS PO Last administered on 12/09/16 20:30; Admin Dose 1 TAB; Start 12/01/16 at 21:00 Bisacodyl (Dulcolax Supp) 10 mg DAILY PRN [place] CONSTIPATION; Start 12/01/16 at 19 :00 Magnesium Hydroxide (Milk Of Mag) 30 ml BID PRN PO CONSTIPATION; Start at 19:00 Lactulose (Enulose) 20 gm DAILY PRN PO CONSTIPATION Last administered on 13:34; Admin Dose 20 GM; Start 12/01/16 at 19:00 Acetaminophen (Tylenol Tab) 650 mg Q4H PRN PO PAIN AND OR ELEVATED TEMP Last administered on 12/03/16 11:44; Admin Dose 650 MG; Start 12/01/16 at 19:00 Diphenhydramine HCl (Benadryl) 25 mg Q6H PRN PO ITCHING Last administered on 00:47; Admin Dose 25 MG; Start 12/01/16 at 21:00 Morphine Sulfate (Roxanol) 6 mg Q4 PRN PO PAIN Last administered on 12/10/16 20:42; Admin Dose 6 MG; Start 12/01/16 at 21:00 Docusate Sodium (Colace) 100 mg Q12H PO Last administered on 12/10/16 18:19; Admin Dose 100 MG; Start 12/05/16 at 19:00 Loratadine (Claritin) 10 mg DAILY GTB Last administered on 12/11/16 08:27; Admin Dose 10 MG; Start 12/06/16 at 09:00 Patient Own Medication 1 ea BID@0630,1630 PO Last administered on 12/11/16 06: 46; Admin Dose 1 EA; Start 12/10/16 at 17:00 Assessment/Plan Additional Assessment/Plan Rehab- L commun oblique prox mid femoral fx-s/p IMN Continue rehab activities anemia- monitor HTN GERD anxiety; depression ILDA RUIZ MD Dec 11, 2016 12:05
--- NOTE | 2016-12-11 14:00 | CONS ---
Date/Time of Note Date/Time of Note DATE: 12/11/16 TIME: 14:00 Consult Date/Type/Reason Admit Date/Time Dec 01, 2016 at 16:25 Type of Consultation: internal medicine Subjective Patient comfortable no new events Objective Vital Signs Date Time Temp Pulse Resp B/P Pulse Ox O2 Delivery O2 Flow Rate FiO2 12/11/16 07:30 98.5 87 18 146/65 92 Intake and Output 12/10/16 12/10/16 12/11/16 15:00 23:00 07:00 Intake Total 820 ml 850 ml Balance 820 ml 850 ml Exam GENERAL: Well-nourished well-developed lady comfortable at rest VITAL SIGNS: per chart NECK: Supple. No JVD or lymphadenopathy. CARDIAC EXAM: S1, S2. No added sounds or murmurs. CHEST: clear bilaterally, No added sounds, rales or wheezes ABDOMEN: Soft, nontender. No guarding or rebound. EXTREMITIES: No cyanosis, clubbing or edema. NEUROLOGIC: Generalized weakness. No focal deficits. Results/Medications Result Diagram: 12/08/16 0557 12/08/16 0557 Medications Current Medications Ferrous Sulfate (Ferrous Sulfate (Ec)) 325 mg DAILY PO Last administered on 08:27; Admin Dose 325 MG; Start 12/02/16 at 09:00; Stop 12/31/16 at 08: 59 Tramadol HCl (Ultram) 50 mg TID PRN PO PAIN Last administered on 12/11/16 06: 35; Admin Dose 50 MG; Start 12/01/16 at 19:00 Venlafaxine HCl (Effexor Xr) 150 mg DAILY PO Last administered on 12/11/16 08: 27; Admin Dose 150 MG; Start 12/02/16 at 09:00 Cholecalciferol (Vitamin D) 2,000 unit DAILY PO Last administered on 12/11/16 08:26; Admin Dose 2,000 UNIT; Start 12/02/16 at 09:00 Multivitamins/ Minerals (Theragran-M) 1 tab DAILY PO Last administered on 08:27; Admin Dose 1 TAB; Start 12/02/16 at 09:00 Calcium/Vitamin D (Oyster Shell/ Vit-D (500/200)) 1 tab DAILY PO Last administered on 12/11/16 08:27; Admin Dose 1 TAB; Start 12/02/16 at 09:00 Acetaminophen/ Hydrocodone Bitart ([place] (5/325)) 1 tab Q6H PRN PO PAIN Last administered on 12/11/16 08:32; Admin Dose 1 TAB; Start 12/01/16 at 19:00 Lorazepam (Ativan) 1 mg QHS PRN PO SLEEP Last administered on 12/10/16 22:50; Admin Dose 1 MG; Start 12/01/16 at 19:00 Nitroglycerin (Nitroglycerin (Sl Tab) 0.4 Mg) 1 tab Q5M PRN SL CHEST PAIN; Start 12/01/16 at 19:00 Pantoprazole (Protonix Tab) 40 mg DAILY@06 PO Last administered on 12/11/16 06 :34; Admin Dose 40 MG; Start 12/02/16 at 06:00 Aspirin (Aspirin) 325 mg DAILY PO Last administered on 12/11/16 08:26; Admin Dose 325 MG; Start 12/02/16 at 09:00 Folic Acid (Folic Acid) 1 mg DAILY PO Last administered on 12/11/16 08:27; Admin Dose 1 MG; Start 12/02/16 at 09:00 Senna (Senokot) 1 tab QHS PO Last administered on 12/09/16 20:30; Admin Dose 1 TAB; Start 12/01/16 at 21:00 Bisacodyl (Dulcolax Supp) 10 mg DAILY PRN [place] CONSTIPATION; Start 12/01/16 at 19 :00 Magnesium Hydroxide (Milk Of Mag) 30 ml BID PRN PO CONSTIPATION; Start at 19:00 Lactulose (Enulose) 20 gm DAILY PRN PO CONSTIPATION Last administered on 13:34; Admin Dose 20 GM; Start 12/01/16 at 19:00 Acetaminophen (Tylenol Tab) 650 mg Q4H PRN PO PAIN AND OR ELEVATED TEMP Last administered on 12/03/16 11:44; Admin Dose 650 MG; Start 12/01/16 at 19:00 Diphenhydramine HCl (Benadryl) 25 mg Q6H PRN PO ITCHING Last administered on 00:47; Admin Dose 25 MG; Start 12/01/16 at 21:00 Morphine Sulfate (Roxanol) 6 mg Q4 PRN PO PAIN Last administered on 12/10/16 20:42; Admin Dose 6 MG; Start 12/01/16 at 21:00 Docusate Sodium (Colace) 100 mg Q12H PO Last administered on 12/10/16 18:19; Admin Dose 100 MG; Start 12/05/16 at 19:00 Loratadine (Claritin) 10 mg DAILY GTB Last administered on 12/11/16 08:27; Admin Dose 10 MG; Start 12/06/16 at 09:00 Patient Own Medication 1 ea BID@7730,1850 PO Last administered on 12/11/16 06: 46; Admin Dose 1 EA; Start 12/10/16 at 17:00 Assessment/Plan Chief Complaint/Hosp Course IMPRESSION 1. Recent fall. 2. Femoral fracture status post nailing. 3. History of anxiety disorder. 4. History of depression. 5. History of asthma, currently stable. 6. Postoperative anemia PLAN: 1. Continue physical therapy. 2. Continue DVT and GI prophylaxis. 3. Continue iron replacement. Monitor H&H 4. Continue bronchodilators as needed. 5. Psychology recommendations Problems: LE[facility]HA CALL [facility], [facility] Dec 11, 2016 14:00
[2016-12-11] MEDS: morphine LIQ (20 MG/ML PO SYG) PO PRN (20:10)
[2016-12-11] MEDS: SENNA TAB PO SCH (20:11)
[2016-12-11] MEDS: LORAZEPAM 1 MG TAB PO PRN (20:13)
[2016-12-11 20:27] VITALS: BP 139/69; RESP 18
[2016-12-12] MEDS: traMADol 50 MG TAB PO PRN ×2 (04:15→11:16)
[2016-12-12] MEDS: DOCUSATE SODIUM 100 MG CAP PO SCH ×2 (06:24→19:00)
[2016-12-12] MEDS: PANTOPRAZOLE (EC) 40 MG TAB PO SCH (06:24)
[2016-12-12] MEDS: NISOLDIPINE 8.5 MG PO SCH ×2 (06:25→16:46)
[2016-12-12] MEDS: HYDROCODONE/APAP (5/325) TAB PO PRN ×3 (06:31→20:40)
--- NOTE | 2016-12-12 08:24 | CONS ---
Date/Time of Note Date/Time of Note DATE: 12/12/16 TIME: 08:24 Consult Date/Type/Reason Admit Date/Time Dec 01, 2016 at 16:25 Type of Consultation: internal medicine Subjective Doing well Objective pulm-cta sba ambulation Vital Signs Date Time Temp Pulse Resp B/P Pulse Ox O2 Delivery O2 Flow Rate FiO2 12/11/16 20:27 98.2 87 18 139/69 94 Intake and Output 12/11/16 12/11/16 12/12/16 15:00 23:00 07:00 Intake Total 1120 ml 240 ml Output Total 2 ml 600 ml Balance 1118 ml -360 ml Results/Medications Result Diagram: 12/08/16 0557 12/08/16 0557 Medications Current Medications Ferrous Sulfate (Ferrous Sulfate (Ec)) 325 mg DAILY PO Last administered on 08:27; Admin Dose 325 MG; Start 12/02/16 at 09:00; Stop 12/31/16 at 08: 59 Tramadol HCl (Ultram) 50 mg TID PRN PO PAIN Last administered on 12/12/16 04:15 ; Admin Dose 50 MG; Start 12/01/16 at 19:00 Venlafaxine HCl (Effexor Xr) 150 mg DAILY PO Last administered on 12/11/16 08: 27; Admin Dose 150 MG; Start 12/02/16 at 09:00 Cholecalciferol (Vitamin D) 2,000 unit DAILY PO Last administered on 12/11/16 08:26; Admin Dose 2,000 UNIT; Start 12/02/16 at 09:00 Multivitamins/ Minerals (Theragran-M) 1 tab DAILY PO Last administered on 08:27; Admin Dose 1 TAB; Start 12/02/16 at 09:00 Calcium/Vitamin D (Oyster Shell/ Vit-D (500/200)) 1 tab DAILY PO Last administered on 12/11/16 08:27; Admin Dose 1 TAB; Start 12/02/16 at 09:00 Acetaminophen/ Hydrocodone Bitart ([place] (5/325)) 1 tab Q6H PRN PO PAIN Last administered on 12/12/16 06:31; Admin Dose 1 TAB; Start 12/01/16 at 19:00 Lorazepam (Ativan) 1 mg QHS PRN PO SLEEP Last administered on 12/11/16 20:13; Admin Dose 1 MG; Start 12/01/16 at 19:00 Nitroglycerin (Nitroglycerin (Sl Tab) 0.4 Mg) 1 tab Q5M PRN SL CHEST PAIN; Start 12/01/16 at 19:00 Pantoprazole (Protonix Tab) 40 mg DAILY@06 PO Last administered on 12/12/16 06: 24; Admin Dose 40 MG; Start 12/02/16 at 06:00 Aspirin (Aspirin) 325 mg DAILY PO Last administered on 12/11/16 08:26; Admin Dose 325 MG; Start 12/02/16 at 09:00 Folic Acid (Folic Acid) 1 mg DAILY PO Last administered on 12/11/16 08:27; Admin Dose 1 MG; Start 12/02/16 at 09:00 Senna (Senokot) 1 tab QHS PO Last administered on 12/11/16 20:11; Admin Dose 1 TAB; Start 12/01/16 at 21:00 Bisacodyl (Dulcolax Supp) 10 mg DAILY PRN [place] CONSTIPATION; Start 12/01/16 at 19 :00 Magnesium Hydroxide (Milk Of Mag) 30 ml BID PRN PO CONSTIPATION; Start at 19:00 Lactulose (Enulose) 20 gm DAILY PRN PO CONSTIPATION Last administered on 13:34; Admin Dose 20 GM; Start 12/01/16 at 19:00 Acetaminophen (Tylenol Tab) 650 mg Q4H PRN PO PAIN AND OR ELEVATED TEMP Last administered on 12/03/16 11:44; Admin Dose 650 MG; Start 12/01/16 at 19:00 Diphenhydramine HCl (Benadryl) 25 mg Q6H PRN PO ITCHING Last administered on 00:47; Admin Dose 25 MG; Start 12/01/16 at 21:00 Morphine Sulfate (Roxanol) 6 mg Q4 PRN PO PAIN Last administered on 12/11/16 20:10; Admin Dose 6 MG; Start 12/01/16 at 21:00 Docusate Sodium (Colace) 100 mg Q12H PO Last administered on 12/10/16 18:19; Admin Dose 100 MG; Start 12/05/16 at 19:00 Loratadine (Claritin) 10 mg DAILY GTB Last administered on 12/11/16 08:27; Admin Dose 10 MG; Start 12/06/16 at 09:00 Patient Own Medication 1 ea BID@0630,1630 PO Last administered on 12/12/16 06: 25; Admin Dose 1 EA; Start 12/10/16 at 17:00 Assessment/Plan Additional Assessment/Plan Rehab- L femoral fracture-s/p IMN Excellent progress, continue program HTN-stable Anemia-continue to monitor ILDA VALADEZ MD Dec 12, 2016 08:24
[2016-12-12] MEDS: CALCIUM/VITAMIN D (500/200) TAB PO SCH (09:25)
[2016-12-12] MEDS: LORATADINE 10 MG TAB GTB SCH (09:26)
[2016-12-12] MEDS: VENLAFAXINE (XR) 75 MG CAP PO SCH (09:26)
[2016-12-12] MEDS: FERROUS SULFATE (EC) 325 MG TAB PO SCH (09:26)
[2016-12-12] MEDS: CHOLECALCIFEROL 2,000 UNIT CAP PO SCH (09:26)
[2016-12-12] MEDS: FOLIC ACID 1 MG TAB PO SCH (09:26)
[2016-12-12] MEDS: ASPIRIN 325 MG TAB PO SCH (09:26)
[2016-12-12] MEDS: MULTIVITAMINS/MINERALS TAB PO SCH (09:26)
[2016-12-12 12:13] VITALS: BP 143/79; RESP 15
[2016-12-12 16:17] VITALS: BP 132/62; PULSE 85; RESP 18
--- NOTE | 2016-12-12 16:57 | CONS ---
Date/Time of Note Date/Time of Note DATE: 12/12/16 TIME: 16:56 Consult Date/Type/Reason Admit Date/Time Dec 01, 2016 at 16:25 Initial Consult Date Type of Consultation: internal medicine/Pulm Subjective No events overnight Objective Vital Signs Date Time Temp Pulse Resp B/P Pulse Ox O2 Delivery O2 Flow Rate FiO2 12/12/16 16:17 85 18 132/62 95 Room Air 12/12/16 12:13 97.8 Intake and Output 12/11/16 12/11/16 12/12/16 15:00 23:00 07:00 Intake Total 1120 ml 240 ml Output Total 2 ml 600 ml Balance 1118 ml -360 ml Exam HEENT: Neck supple; no JVD; no LAD CVS: RRR, S1 and S2 CHEST: Clear ABD: Soft, NT, + BS EXT: No c/c/e Results/Medications Result Diagram: 12/08/16 0557 12/08/16 0557 Medications Current Medications Ferrous Sulfate (Ferrous Sulfate (Ec)) 325 mg DAILY PO Last administered on 12/12 09:26; Admin Dose 325 MG; Start 12/02/16 at 09:00; Stop 12/31/16 at 08:59 Tramadol HCl (Ultram) 50 mg TID PRN PO PAIN Last administered on 12/12/16 11:16 ; Admin Dose 50 MG; Start 12/01/16 at 19:00 Venlafaxine HCl (Effexor Xr) 150 mg DAILY PO Last administered on 12/12/16 09: 26; Admin Dose 150 MG; Start 12/02/16 at 09:00 Cholecalciferol (Vitamin D) 2,000 unit DAILY PO Last administered on 12/12/16 09:26; Admin Dose 2,000 UNIT; Start 12/02/16 at 09:00 Multivitamins/ Minerals (Theragran-M) 1 tab DAILY PO Last administered on 09:26; Admin Dose 1 TAB; Start 12/02/16 at 09:00 Calcium/Vitamin D (Oyster Shell/ Vit-D (500/200)) 1 tab DAILY PO Last administered on 12/12/16 09:25; Admin Dose 1 TAB; Start 12/02/16 at 09:00 Acetaminophen/ Hydrocodone Bitart ([place] (5/325)) 1 tab Q6H PRN PO PAIN Last administered on 12/12/16 13:14; Admin Dose 1 TAB; Start 12/01/16 at 19:00 Lorazepam (Ativan) 1 mg QHS PRN PO SLEEP Last administered on 12/11/16 20:13; Admin Dose 1 MG; Start 12/01/16 at 19:00 Nitroglycerin (Nitroglycerin (Sl Tab) 0.4 Mg) 1 tab Q5M PRN SL CHEST PAIN; Start 12/01/16 at 19:00 Pantoprazole (Protonix Tab) 40 mg DAILY@06 PO Last administered on 12/12/16 06: 24; Admin Dose 40 MG; Start 12/02/16 at 06:00 Aspirin (Aspirin) 325 mg DAILY PO Last administered on 12/12/16 09:26; Admin Dose 325 MG; Start 12/02/16 at 09:00 Folic Acid (Folic Acid) 1 mg DAILY PO Last administered on 12/12/16 09:26; Admin Dose 1 MG; Start 12/02/16 at 09:00 Senna (Senokot) 1 tab QHS PO Last administered on 12/11/16 20:11; Admin Dose 1 TAB; Start 12/01/16 at 21:00 Bisacodyl (Dulcolax Supp) 10 mg DAILY PRN [place] CONSTIPATION; Start 12/01/16 at 19 :00 Magnesium Hydroxide (Milk Of Mag) 30 ml BID PRN PO CONSTIPATION; Start at 19:00 Lactulose (Enulose) 20 gm DAILY PRN PO CONSTIPATION Last administered on 13:34; Admin Dose 20 GM; Start 12/01/16 at 19:00 Acetaminophen (Tylenol Tab) 650 mg Q4H PRN PO PAIN AND OR ELEVATED TEMP Last administered on 12/03/16 11:44; Admin Dose 650 MG; Start 12/01/16 at 19:00 Diphenhydramine HCl (Benadryl) 25 mg Q6H PRN PO ITCHING Last administered on 00:47; Admin Dose 25 MG; Start 12/01/16 at 21:00 Morphine Sulfate (Roxanol) 6 mg Q4 PRN PO PAIN Last administered on 12/11/16 20:10; Admin Dose 6 MG; Start 12/01/16 at 21:00 Docusate Sodium (Colace) 100 mg Q12H PO Last administered on 12/10/16 18:19; Admin Dose 100 MG; Start 12/05/16 at 19:00 Loratadine (Claritin) 10 mg DAILY GTB Last administered on 12/12/16 09:26; Admin Dose 10 MG; Start 12/06/16 at 09:00 Patient Own Medication 1 ea BID@0630,1630 PO Last administered on 12/12/16 16: 46; Admin Dose 1 EA; Start 12/10/16 at 17:00 Assessment/Plan Additional Assessment/Plan IMPRESSION 1. Recent fall. 2. Femoral fracture status post nailing. 3. History of anxiety disorder. 4. History of depression. 5. History of asthma, currently stable. 6. Postoperative anemia PLAN: 1. Continue PT/OT 2. Continue DVT and GI prophylaxis. 3. Follow H/H 4. Am labs TO MAJANO MD Dec 12, 2016 16:57
[2016-12-12 20:38] VITALS: BP 157/69; RESP 18
[2016-12-12] MEDS: LORAZEPAM 1 MG TAB PO PRN (20:40)
[2016-12-12] MEDS: SENNA TAB PO SCH (21:00)
[2016-12-12] MEDS: morphine LIQ (20 MG/ML PO SYG) PO PRN (22:28)
[2016-12-13] MEDS: DOCUSATE SODIUM 100 MG CAP PO SCH ×2 (06:20→19:00)
[2016-12-13] MEDS: NISOLDIPINE 8.5 MG PO SCH ×2 (06:56→16:16)
[2016-12-13] MEDS: PANTOPRAZOLE (EC) 40 MG TAB PO SCH (06:56)
[2016-12-13] MEDS: HYDROCODONE/APAP (5/325) TAB PO PRN ×3 (06:56→22:21)
[2016-12-13 07:30] VITALS: BP 148/65; RESP 18
[2016-12-13] MEDS: ASPIRIN 325 MG TAB PO SCH (08:36)
[2016-12-13] MEDS: VENLAFAXINE (XR) 75 MG CAP PO SCH (08:37)
[2016-12-13] MEDS: CHOLECALCIFEROL 2,000 UNIT CAP PO SCH (08:37)
[2016-12-13] MEDS: CALCIUM/VITAMIN D (500/200) TAB PO SCH (08:37)
[2016-12-13] MEDS: FOLIC ACID 1 MG TAB PO SCH (08:37)
[2016-12-13] MEDS: MULTIVITAMINS/MINERALS TAB PO SCH (08:37)
[2016-12-13] MEDS: FERROUS SULFATE (EC) 325 MG TAB PO SCH (08:37)
[2016-12-13] MEDS: LORATADINE 10 MG TAB GTB SCH (08:37)
[2016-12-13 11:06] LABS: ADD SCAN DIFF NO
[2016-12-13 11:12] LABS: BASOPHILS % 0.5 % (0.0-2.0); EOSINOPHILS # 0.3 10^3/ul (0.0-0.5); EOSINOPHILS % 5.5 % (0.0-7.0); HEMATOCRIT 30.2 % (37.0-47.0); LYMPHOCYTES # 1.3 10^3/ul (0.8-2.9); LYMPHOCYTES % 22.9 % (15.0-51.0); MEAN CORPUSCULAR HGB CONC 29.8 g/dl (32.0-37.0); MEAN CORPUSCULAR VOLUME 67.1 fl (82.0-101.0); MEAN PLATELET VOLUME 9.8 fl (7.4-10.4); MONOCYTE # 0.5 10^3/ul (0.3-0.9); MONOCYTES % 8.4 % (0.0-11.0); NEUTROPHIL # 3.6 10^3/ul (1.6-7.5); NEUTROPHILS % 62.5 % (39.0-77.0); PLATELET COUNT 391 10^3/UL (140-415); RED CELL DISTRIBUTION WIDTH 18.6 % (11.5-14.5); WHITE BLOOD COUNT 5.8 10^3/ul (4.8-10.8)
--- NOTE | 2016-12-13 15:36 | CONS ---
Date/Time of Note Date/Time of Note DATE: 12/13/16 TIME: 15:35 Consult Date/Type/Reason Admit Date/Time Dec 01, 2016 at 16:25 Type of Consultation: internal medicine/Pulm Subjective No events. Patient sleeping. Objective Vital Signs Date Time Temp Pulse Resp B/P Pulse Ox O2 Delivery O2 Flow Rate FiO2 12/13/16 07:30 98.4 86 18 148/65 93 12/12/16 16:17 Room Air Intake and Output 12/12/16 12/12/16 12/13/16 15:00 23:00 07:00 Intake Total 500 ml Balance 500 ml Exam HEENT: Neck supple; no JVD; no LAD CVS: RRR, S1 and S2 CHEST: Clear ABD: Soft, NT, + BS EXT: No c/c/e Results/Medications Result Diagram: 12/13/16 1045 Results 24 hrs Laboratory Tests Test 12/13/16 10:45 White Blood Count 5.8 # Red Blood Count 4.50 Hemoglobin 9.0 L Hematocrit 30.2 L Mean Corpuscular Volume 67.1 L Mean Corpuscular Hemoglobin 20.0 L Mean Corpuscular Hemoglobin Concent 29.8 L Red Cell Distribution Width 18.6 H Platelet Count 391 Mean Platelet Volume 9.8 Neutrophils % 62.5 Lymphocytes % 22.9 Monocytes % 8.4 Eosinophils % 5.5 Basophils % 0.5 Nucleated Red Blood Cells % 0.0 Neutrophils # 3.6 Lymphocytes # 1.3 Monocytes # 0.5 Eosinophils # 0.3 Basophils # 0.0 Nucleated Red Blood Cells # 0.0 Medications Current Medications Ferrous Sulfate (Ferrous Sulfate (Ec)) 325 mg DAILY PO Last administered on 12/13 08:37; Admin Dose 325 MG; Start 12/02/16 at 09:00; Stop 12/31/16 at 08:59 Tramadol HCl (Ultram) 50 mg TID PRN PO PAIN Last administered on 12/12/16 11:16 ; Admin Dose 50 MG; Start 12/01/16 at 19:00 Venlafaxine HCl (Effexor Xr) 150 mg DAILY PO Last administered on 12/13/16 08: 37; Admin Dose 150 MG; Start 12/02/16 at 09:00 Cholecalciferol (Vitamin D) 2,000 unit DAILY PO Last administered on 12/13/16 08:37; Admin Dose 2,000 UNIT; Start 12/02/16 at 09:00 Multivitamins/ Minerals (Theragran-M) 1 tab DAILY PO Last administered on 08:37; Admin Dose 1 TAB; Start 12/02/16 at 09:00 Calcium/Vitamin D (Oyster Shell/ Vit-D (500/200)) 1 tab DAILY PO Last administered on 12/13/16 08:37; Admin Dose 1 TAB; Start 12/02/16 at 09:00 Acetaminophen/ Hydrocodone Bitart ([place] (5/325)) 1 tab Q6H PRN PO PAIN Last administered on 12/13/16 06:56; Admin Dose 1 TAB; Start 12/01/16 at 19:00 Lorazepam (Ativan) 1 mg QHS PRN PO SLEEP Last administered on 12/12/16 20:40; Admin Dose 1 MG; Start 12/01/16 at 19:00 Nitroglycerin (Nitroglycerin (Sl Tab) 0.4 Mg) 1 tab Q5M PRN SL CHEST PAIN; Start 12/01/16 at 19:00 Pantoprazole (Protonix Tab) 40 mg DAILY@06 PO Last administered on 12/13/16 06: 56; Admin Dose 40 MG; Start 12/02/16 at 06:00 Aspirin (Aspirin) 325 mg DAILY PO Last administered on 12/13/16 08:36; Admin Dose 325 MG; Start 12/02/16 at 09:00 Folic Acid (Folic Acid) 1 mg DAILY PO Last administered on 12/13/16 08:37; Admin Dose 1 MG; Start 12/02/16 at 09:00 Senna (Senokot) 1 tab QHS PO Last administered on 12/11/16 20:11; Admin Dose 1 TAB; Start 12/01/16 at 21:00 Bisacodyl (Dulcolax Supp) 10 mg DAILY PRN [place] CONSTIPATION; Start 12/01/16 at 19 :00 Magnesium Hydroxide (Milk Of Mag) 30 ml BID PRN PO CONSTIPATION; Start at 19:00 Lactulose (Enulose) 20 gm DAILY PRN PO CONSTIPATION Last administered on 13:34; Admin Dose 20 GM; Start 12/01/16 at 19:00 Acetaminophen (Tylenol Tab) 650 mg Q4H PRN PO PAIN AND OR ELEVATED TEMP Last administered on 12/03/16 11:44; Admin Dose 650 MG; Start 12/01/16 at 19:00 Diphenhydramine HCl (Benadryl) 25 mg Q6H PRN PO ITCHING Last administered on 00:47; Admin Dose 25 MG; Start 12/01/16 at 21:00 Morphine Sulfate (Roxanol) 6 mg Q4 PRN PO PAIN Last administered on 12/12/16 22 :28; Admin Dose 6 MG; Start 12/01/16 at 21:00 Docusate Sodium (Colace) 100 mg Q12H PO Last administered on 12/10/16 18:19; Admin Dose 100 MG; Start 12/05/16 at 19:00 Loratadine (Claritin) 10 mg DAILY GTB Last administered on 12/13/16 08:37; Admin Dose 10 MG; Start 12/06/16 at 09:00 Patient Own Medication 1 ea BID@0630,1630 PO Last administered on 12/13/16 06: 56; Admin Dose 1 EA; Start 12/10/16 at 17:00 Assessment/Plan Additional Assessment/Plan IMPRESSION: 1. Recent fall. 2. Femoral fracture status post nailing. 3. History of anxiety disorder. 4. History of depression. 5. History of asthma, currently stable. 6. Postoperative anemia PLAN: 1. Continue PT/OT 2. Continue DVT and GI prophylaxis. 3. Follow H/H--> stable TO MAJANO MD Dec 13, 2016 15:36
[2016-12-13 16:15] VITALS: BP 144/71; PULSE 83; RESP 18
[2016-12-13 20:00] VITALS: BP 141/61; PULSE 82; RESP 18
[2016-12-13] MEDS: SENNA TAB PO SCH (20:47)
[2016-12-13] MEDS: morphine LIQ (20 MG/ML PO SYG) PO PRN (20:47)
[2016-12-13] MEDS: LORAZEPAM 1 MG TAB PO PRN (22:21)
[2016-12-14] MEDS: PANTOPRAZOLE (EC) 40 MG TAB PO SCH (06:28)
[2016-12-14] MEDS: NISOLDIPINE 8.5 MG PO SCH ×2 (06:28→16:55)
[2016-12-14] MEDS: DOCUSATE SODIUM 100 MG CAP PO SCH ×2 (06:29→18:01)
[2016-12-14] MEDS: traMADol 50 MG TAB PO PRN ×2 (06:32→20:27)
[2016-12-14 07:30] VITALS: BP 153/72; RESP 18
[2016-12-14] MEDS: CHOLECALCIFEROL 2,000 UNIT CAP PO SCH (08:00)
[2016-12-14] MEDS: CALCIUM/VITAMIN D (500/200) TAB PO SCH (08:00)
[2016-12-14] MEDS: FERROUS SULFATE (EC) 325 MG TAB PO SCH (08:00)
[2016-12-14] MEDS: VENLAFAXINE (XR) 75 MG CAP PO SCH (08:00)
[2016-12-14] MEDS: FOLIC ACID 1 MG TAB PO SCH (08:00)
[2016-12-14] MEDS: MULTIVITAMINS/MINERALS TAB PO SCH (08:00)
[2016-12-14] MEDS: LORATADINE 10 MG TAB GTB SCH (08:00)
[2016-12-14] MEDS: ASPIRIN 325 MG TAB PO SCH (08:00)
[2016-12-14] MEDS: HYDROCODONE/APAP (5/325) TAB PO PRN ×2 (08:11→14:09)
--- NOTE | 2016-12-14 11:44 | CONS ---
Date/Time of Note Date/Time of Note DATE: 12/14/16 TIME: 11:43 Consult Date/Type/Reason Admit Date/Time Dec 01, 2016 at 16:25 Type of Consultation: internal medicine/Pulm Subjective Complaining of pain in leg during ambulation Objective Vital Signs Date Time Temp Pulse Resp B/P Pulse Ox O2 Delivery O2 Flow Rate FiO2 12/14/16 07:30 98.2 82 18 153/72 92 12/13/16 20:00 Room Air Intake and Output 12/13/16 12/13/16 12/14/16 15:00 23:00 07:00 Intake Total 1200 ml Output Total 1 ml Balance 1199 ml Exam GENERAL: Well-nourished well-developed lady comfortable at rest VITAL SIGNS: per chart NECK: Supple. No JVD or lymphadenopathy. CARDIAC EXAM: S1, S2. No added sounds or murmurs. CHEST: clear bilaterally, No added sounds, rales or wheezes ABDOMEN: Soft, nontender. No guarding or rebound. EXTREMITIES: No cyanosis, clubbing or edema. NEUROLOGIC: Generalized weakness. No focal deficits. Results/Medications Result Diagram: 12/13/16 1045 Medications Current Medications Ferrous Sulfate (Ferrous Sulfate (Ec)) 325 mg DAILY PO Last administered on 12/14 08:00; Admin Dose 325 MG; Start 12/02/16 at 09:00; Stop 12/31/16 at 08:59 Tramadol HCl (Ultram) 50 mg TID PRN PO PAIN Last administered on 12/14/16 06:32 ; Admin Dose 50 MG; Start 12/01/16 at 19:00 Venlafaxine HCl (Effexor Xr) 150 mg DAILY PO Last administered on 12/14/16 08: 00; Admin Dose 150 MG; Start 12/02/16 at 09:00 Cholecalciferol (Vitamin D) 2,000 unit DAILY PO Last administered on 12/14/16 08:00; Admin Dose 2,000 UNIT; Start 12/02/16 at 09:00 Multivitamins/ Minerals (Theragran-M) 1 tab DAILY PO Last administered on 08:00; Admin Dose 1 TAB; Start 12/02/16 at 09:00 Calcium/Vitamin D (Oyster Shell/ Vit-D (500/200)) 1 tab DAILY PO Last administered on 12/14/16 08:00; Admin Dose 1 TAB; Start 12/02/16 at 09:00 Acetaminophen/ Hydrocodone Bitart ([place] (5/325)) 1 tab Q6H PRN PO PAIN Last administered on 12/14/16 08:11; Admin Dose 1 TAB; Start 12/01/16 at 19:00 Lorazepam (Ativan) 1 mg QHS PRN PO SLEEP Last administered on 12/13/16 22:21; Admin Dose 1 MG; Start 12/01/16 at 19:00 Nitroglycerin (Nitroglycerin (Sl Tab) 0.4 Mg) 1 tab Q5M PRN SL CHEST PAIN; Start 12/01/16 at 19:00 Pantoprazole (Protonix Tab) 40 mg DAILY@06 PO Last administered on 12/14/16 06: 28; Admin Dose 40 MG; Start 12/02/16 at 06:00 Aspirin (Aspirin) 325 mg DAILY PO Last administered on 12/14/16 08:00; Admin Dose 325 MG; Start 12/02/16 at 09:00 Folic Acid (Folic Acid) 1 mg DAILY PO Last administered on 12/14/16 08:00; Admin Dose 1 MG; Start 12/02/16 at 09:00 Senna (Senokot) 1 tab QHS PO Last administered on 12/13/16 20:47; Admin Dose 1 TAB; Start 12/01/16 at 21:00 Bisacodyl (Dulcolax Supp) 10 mg DAILY PRN [place] CONSTIPATION; Start 12/01/16 at 19 :00 Magnesium Hydroxide (Milk Of Mag) 30 ml BID PRN PO CONSTIPATION; Start at 19:00 Lactulose (Enulose) 20 gm DAILY PRN PO CONSTIPATION Last administered on 13:34; Admin Dose 20 GM; Start 12/01/16 at 19:00 Acetaminophen (Tylenol Tab) 650 mg Q4H PRN PO PAIN AND OR ELEVATED TEMP Last administered on 12/03/16 11:44; Admin Dose 650 MG; Start 12/01/16 at 19:00 Diphenhydramine HCl (Benadryl) 25 mg Q6H PRN PO ITCHING Last administered on 00:47; Admin Dose 25 MG; Start 12/01/16 at 21:00 Morphine Sulfate (Roxanol) 6 mg Q4 PRN PO PAIN Last administered on 12/13/16 20 :47; Admin Dose 6 MG; Start 12/01/16 at 21:00 Docusate Sodium (Colace) 100 mg Q12H PO Last administered on 12/14/16 06:29; Admin Dose 100 MG; Start 12/05/16 at 19:00 Loratadine (Claritin) 10 mg DAILY GTB Last administered on 12/14/16 08:00; Admin Dose 10 MG; Start 12/06/16 at 09:00 Patient Own Medication 1 ea BID@0630,1630 PO Last administered on 12/14/16 06: 28; Admin Dose 1 EA; Start 12/10/16 at 17:00 Assessment/Plan Chief Complaint/Hosp Course IMPRESSION 1. Recent fall. 2. Femoral fracture status post nailing. 3. History of anxiety disorder. 4. History of depression. 5. History of asthma, currently stable. 6. Postoperative anemia PLAN: 1. Continue physical therapy. Pain control 2. Continue DVT and GI prophylaxis. 3. Continue iron replacement. Monitor H&H 4. Continue bronchodilators as needed. 5. Psychology recommendations Problems: [facility]IG[facility] CALL [facility], [facility] Dec 14, 2016 11:44
--- NOTE | 2016-12-14 12:30 | CONS ---
Date/Time of Note Date/Time of Note DATE: 12/14/16 TIME: 12:28 Consult Date/Type/Reason Admit Date/Time Dec 01, 2016 at 16:25 Type of Consultation: internal medicine/Pulm Subjective No new complaints Objective Vital Signs Date Time Temp Pulse Resp B/P Pulse Ox O2 Delivery O2 Flow Rate FiO2 12/14/16 07:30 98.2 82 18 153/72 92 12/13/16 20:00 Room Air Intake and Output 12/13/16 12/13/16 12/14/16 14:59 22:59 06:59 Intake Total 1200 ml Output Total 1 ml Balance 1199 ml INTERDISCIPLINARY TEAM CONFERENCE BOWEL- Cont BLADDER-Cont SKIN- intact OT- DRESSING-sba/min BATHING-sba/min TOILETING-min PT- BED MOBILITY-sba TRANSFERS-sba AMBULATION-sba 150 feet A/P- Interdisciplinary team conference held today. Please see interdisciplinary sheet. Working toward d.c. on 12/19 with post discharge follow up of physical therapy, occupational therapy. Results/Medications Result Diagram: 12/13/16 1045 Medications Current Medications Ferrous Sulfate (Ferrous Sulfate (Ec)) 325 mg DAILY PO Last administered on 12/14 08:00; Admin Dose 325 MG; Start 12/02/16 at 09:00; Stop 12/31/16 at 08:59 Tramadol HCl (Ultram) 50 mg TID PRN PO PAIN Last administered on 12/14/16 06:32 ; Admin Dose 50 MG; Start 12/01/16 at 19:00 Venlafaxine HCl (Effexor Xr) 150 mg DAILY PO Last administered on 12/14/16 08: 00; Admin Dose 150 MG; Start 12/02/16 at 09:00 Cholecalciferol (Vitamin D) 2,000 unit DAILY PO Last administered on 12/14/16 08:00; Admin Dose 2,000 UNIT; Start 12/02/16 at 09:00 Multivitamins/ Minerals (Theragran-M) 1 tab DAILY PO Last administered on 08:00; Admin Dose 1 TAB; Start 12/02/16 at 09:00 Calcium/Vitamin D (Oyster Shell/ Vit-D (500/200)) 1 tab DAILY PO Last administered on 12/14/16 08:00; Admin Dose 1 TAB; Start 12/02/16 at 09:00 Acetaminophen/ Hydrocodone Bitart ([place] (5/325)) 1 tab Q6H PRN PO PAIN Last administered on 12/14/16 08:11; Admin Dose 1 TAB; Start 12/01/16 at 19:00 Lorazepam (Ativan) 1 mg QHS PRN PO SLEEP Last administered on 12/13/16 22:21; Admin Dose 1 MG; Start 12/01/16 at 19:00 Nitroglycerin (Nitroglycerin (Sl Tab) 0.4 Mg) 1 tab Q5M PRN SL CHEST PAIN; Start 12/01/16 at 19:00 Pantoprazole (Protonix Tab) 40 mg DAILY@06 PO Last administered on 12/14/16 06: 28; Admin Dose 40 MG; Start 12/02/16 at 06:00 Aspirin (Aspirin) 325 mg DAILY PO Last administered on 12/14/16 08:00; Admin Dose 325 MG; Start 12/02/16 at 09:00 Folic Acid (Folic Acid) 1 mg DAILY PO Last administered on 12/14/16 08:00; Admin Dose 1 MG; Start 12/02/16 at 09:00 Senna (Senokot) 1 tab QHS PO Last administered on 12/13/16 20:47; Admin Dose 1 TAB; Start 12/01/16 at 21:00 Bisacodyl (Dulcolax Supp) 10 mg DAILY PRN [place] CONSTIPATION; Start 12/01/16 at 19 :00 Magnesium Hydroxide (Milk Of Mag) 30 ml BID PRN PO CONSTIPATION; Start at 19:00 Lactulose (Enulose) 20 gm DAILY PRN PO CONSTIPATION Last administered on 13:34; Admin Dose 20 GM; Start 12/01/16 at 19:00 Acetaminophen (Tylenol Tab) 650 mg Q4H PRN PO PAIN AND OR ELEVATED TEMP Last administered on 12/03/16 11:44; Admin Dose 650 MG; Start 12/01/16 at 19:00 Diphenhydramine HCl (Benadryl) 25 mg Q6H PRN PO ITCHING Last administered on 00:47; Admin Dose 25 MG; Start 12/01/16 at 21:00 Morphine Sulfate (Roxanol) 6 mg Q4 PRN PO PAIN Last administered on 12/13/16 20 :47; Admin Dose 6 MG; Start 12/01/16 at 21:00 Docusate Sodium (Colace) 100 mg Q12H PO Last administered on 12/14/16 06:29; Admin Dose 100 MG; Start 12/05/16 at 19:00 Loratadine (Claritin) 10 mg DAILY GTB Last administered on 12/14/16 08:00; Admin Dose 10 MG; Start 12/06/16 at 09:00 Patient Own Medication 1 ea BID@0630,1630 PO Last administered on 12/14/16 06: 28; Admin Dose 1 EA; Start 12/10/16 at 17:00 ILDA RUIZ MD Dec 14, 2016 12:29
[2016-12-14] MEDS: MELOXICAM 7.5 MG TAB PO SCH (17:57)
[2016-12-14 19:40] VITALS: BP 134/64; RESP 18
[2016-12-14] MEDS: SENNA TAB PO SCH (20:27)
[2016-12-14] MEDS: LORAZEPAM 1 MG TAB PO PRN (20:27)
[2016-12-14] MEDS ORDERED: HYDROmorphONE 2 MG TAB PO ONE (22:30)
[2016-12-15] MEDS: PANTOPRAZOLE (EC) 40 MG TAB PO SCH (06:28)
[2016-12-15] MEDS: NISOLDIPINE 8.5 MG PO SCH ×2 (06:28→16:34)
[2016-12-15 06:34] VITALS: BP 147/72; PULSE 81
[2016-12-15] MEDS: DOCUSATE SODIUM 100 MG CAP PO SCH ×2 (06:51→16:40)
[2016-12-15] MEDS: POLYETHYLENE GLYCOL 17 GM PACKET PO SCH ×2 (09:00→09:25)
[2016-12-15] MEDS: LORATADINE 10 MG TAB GTB SCH (09:23)
[2016-12-15] MEDS: FERROUS SULFATE (EC) 325 MG TAB PO SCH (09:24)
[2016-12-15] MEDS: FOLIC ACID 1 MG TAB PO SCH (09:24)
[2016-12-15] MEDS: CHOLECALCIFEROL 2,000 UNIT CAP PO SCH (09:24)
[2016-12-15] MEDS: CALCIUM/VITAMIN D (500/200) TAB PO SCH (09:24)
[2016-12-15] MEDS: traMADol 50 MG TAB PO PRN ×2 (09:24→20:38)
[2016-12-15] MEDS: ASPIRIN 325 MG TAB PO SCH (09:24)
--- NOTE | 2016-12-15 09:28 | CONS ---
DATE OF ADMISSION: 12/01/2016 DATE OF CONSULTATION: 12/15/2016 REFERRING PHYSICIAN: Dr. Neo Rolle. By history, this is a 66-year-old female who had a mechanical fall, fracturing her left hip approxim ately 2 weeks prior to this consultation. She has had open reduction and internal fixation which wa s done, but has had continual pain in her left hip since that time. She describes the pain as a gna wing type of sensation, is not an electric shock-type of sensation. It goes down into her left thig h, but does not pass her knee. It is not alleviated with current pain control medications. She has no past medical history of opioid use or abuse. Since hospitalization she has been tried on a comb ination of different nonsteroidal anti-inflammatory medications and opioids orally and p.r.n. IV pus h medications, without significant resolution of her underlying discomfort. She carries a past medi thaddeus history of having what she states is arthritis, but she does not recall whether or not it is rhe umatoid or osteoarthritis. As an outpatient, she had been treated with Mobic. She does not recall the dosage of it, but she takes it nightly and says she has reasonably good resolution of her pain i n bilateral knees and right ankle associated with her arthritis in the past with just Mobic. Denies any prodromal symptoms associated with it of nausea, vomiting, fevers, chills, cough, shortness of breath. She is actively participating in physical therapy. She states that she feels she is doing very well. MEDICATIONS: Please refer to reconciliation sheet. ALLERGIES: SHE STATES ARE TO SHELLFISH. MAJOR MEDICAL PROBLEMS IN THE PAST: Essentially as per history of present illness, and a history of anxiety disorder and depression according to the patient's medical records. SOCIAL HISTORY: Nonsmoker, nondrinker. No history of drug use or abuse in the past. FAMILY HISTORY: Noncontributory towards this hospitalization. REVIEW OF SYSTEMS: A 12-point review of systems is unremarkable except which is as per history of p resent illness. PHYSICAL EXAMINATION: GENERAL: Shows a well-nourished, well-developed female in no major acute distress. She is not moan ing, groaning, grimacing on examination. VITAL SIGNS: Blood pressure 147/72, pulse of 81 and regular, respirations of 20, temperature of 98. 4 degrees, 94% saturation on room air. HEENT: She is normocephalic and atraumatic. Anicteric, acyanotic. CHEST: Shows bilateral clear breath sounds throughout both lung nelson. COR: S1, S2, without S3, S4, murmur, gallop, rub. Normal rate, normal rhythm. ABDOMEN: Grossly benign, without organomegaly, masses, tenderness, rebound, or peritoneal signs on examination. LABORATORY DATA: White blood cell count of 5.8, hemoglobin 9.0, hematocrit of 30.2, MCV of 67.1, pl atelet count 391,000. Chemistries: Serum sodium 137, potassium 3.6, chloride 99, bicarbonate 31, B UN of 21, creatinine 0.83, blood sugar 102. ASSESSMENT AND PLAN: This lady has a pain syndrome. 1. Postoperative discomfort associated with left femoral fracture, status post open reduction/inter nal fixation, which is incidental pain, as she is relatively comfortable at rest. When she does any activities she does have increasing discomfort as well as mobilizing and turning. She states it do es keep her up at night in addition. 2. Osteoarthritic pain by history, both knees, right ankle. Reasonably well controlled as an outpa tient on Mobic. At this time my recommendations are to restart her Mobic at 7.5 mg at bedtime, and per recommendation start her off on just Ultram 50 mg q.6 h. p.r.n. with options to increase that do se as necessary. We will also add on a bowel regimen at this time. She is currently on Senna. I w ill increase that to MiraLax at bedtime and follow her progress closely. Dictated By: MARIANA CHILDS MD, LP/CHARMAINE Conf#: [id number] DID#: [id number]
[2016-12-15] MEDS: VENLAFAXINE (XR) 75 MG CAP PO SCH (09:32)
[2016-12-15] MEDS: MULTIVITAMINS/MINERALS TAB PO SCH (09:32)
--- NOTE | 2016-12-15 12:02 | CONS ---
Date/Time of Note Date/Time of Note DATE: 12/15/16 TIME: 12:01 Consult Date/Type/Reason Admit Date/Time Dec 01, 2016 at 16:25 Type of Consultation: internal medicine/Pulm Subjective Doing very well Objective pulm-cta abd-soft sba ambulation Vital Signs Date Time Temp Pulse Resp B/P Pulse Ox O2 Delivery O2 Flow Rate FiO2 12/15/16 06:34 81 147/72 12/14/16 19:40 98.4 18 94 12/13/16 20:00 Room Air Intake and Output 12/14/16 12/14/16 12/15/16 15:00 23:00 07:00 Intake Total 400 ml 980 ml 2100 ml Output Total 1 ml Balance 400 ml 979 ml 2100 ml Results/Medications Result Diagram: 12/13/16 1045 Medications Current Medications Ferrous Sulfate (Ferrous Sulfate (Ec)) 325 mg DAILY PO Last administered on 12/15 09:24; Admin Dose 325 MG; Start 12/02/16 at 09:00; Stop 12/31/16 at 08:59 Tramadol HCl (Ultram) 50 mg TID PRN PO PAIN Last administered on 12/15/16 09:24 ; Admin Dose 50 MG; Start 12/01/16 at 19:00 Venlafaxine HCl (Effexor Xr) 150 mg DAILY PO Last administered on 12/15/16 09: 32; Admin Dose 150 MG; Start 12/02/16 at 09:00 Cholecalciferol (Vitamin D) 2,000 unit DAILY PO Last administered on 12/15/16 09:24; Admin Dose 2,000 UNIT; Start 12/02/16 at 09:00 Multivitamins/ Minerals (Theragran-M) 1 tab DAILY PO Last administered on 09:32; Admin Dose 1 TAB; Start 12/02/16 at 09:00 Calcium/Vitamin D (Oyster Shell/ Vit-D (500/200)) 1 tab DAILY PO Last administered on 12/15/16 09:24; Admin Dose 1 TAB; Start 12/02/16 at 09:00 Lorazepam (Ativan) 1 mg QHS PRN PO SLEEP Last administered on 12/14/16 20:27; Admin Dose 1 MG; Start 12/01/16 at 19:00 Nitroglycerin (Nitroglycerin (Sl Tab) 0.4 Mg) 1 tab Q5M PRN SL CHEST PAIN; Start 12/01/16 at 19:00 Pantoprazole (Protonix Tab) 40 mg DAILY@06 PO Last administered on 12/15/16 06: 28; Admin Dose 40 MG; Start 12/02/16 at 06:00 Aspirin (Aspirin) 325 mg DAILY PO Last administered on 12/15/16 09:24; Admin Dose 325 MG; Start 12/02/16 at 09:00 Folic Acid (Folic Acid) 1 mg DAILY PO Last administered on 12/15/16 09:24; Admin Dose 1 MG; Start 12/02/16 at 09:00 Senna (Senokot) 1 tab QHS PO Last administered on 12/13/16 20:47; Admin Dose 1 TAB; Start 12/01/16 at 21:00 Bisacodyl (Dulcolax Supp) 10 mg DAILY PRN [place] CONSTIPATION; Start 12/01/16 at 19 :00 Magnesium Hydroxide (Milk Of Mag) 30 ml BID PRN PO CONSTIPATION; Start at 19:00 Lactulose (Enulose) 20 gm DAILY PRN PO CONSTIPATION Last administered on 13:34; Admin Dose 20 GM; Start 12/01/16 at 19:00 Diphenhydramine HCl (Benadryl) 25 mg Q6H PRN PO ITCHING Last administered on 00:47; Admin Dose 25 MG; Start 12/01/16 at 21:00 Docusate Sodium (Colace) 100 mg Q12H PO Last administered on 12/14/16 06:29; Admin Dose 100 MG; Start 12/05/16 at 19:00 Loratadine (Claritin) 10 mg DAILY GTB Last administered on 12/15/16 09:23; Admin Dose 10 MG; Start 12/06/16 at 09:00 Patient Own Medication 1 ea BID@0630,1630 PO Last administered on 12/15/16 06: 28; Admin Dose 1 EA; Start 12/10/16 at 17:00 Polyethylene Glycol (Miralax) 17 gm DAILY PO ; Start 12/15/16 at 09:00 Assessment/Plan Additional Assessment/Plan Rehab- L femoral fracture-s/p IMN continue rehab program, working towards ne Wednesday HTN-stable Anemia-continue to monitor ILDA VALADEZ MD Dec 15, 2016 12:02
[2016-12-15] MEDS: MELOXICAM 7.5 MG TAB PO SCH (16:39)
[2016-12-15 16:41] VITALS: BP 144/67; PULSE 85; RESP 18
[2016-12-15] MEDS: SENNA TAB PO SCH (20:32)
[2016-12-15] MEDS: LORAZEPAM 1 MG TAB PO PRN (20:35)
[2016-12-15] MEDS: DIPHENHYDRAMINE 25 MG CAP PO PRN (22:26)
[2016-12-16] MEDS: traMADol 50 MG TAB PO PRN (02:42)
[2016-12-16] MEDS: PANTOPRAZOLE (EC) 40 MG TAB PO SCH (06:17)
[2016-12-16] MEDS: NISOLDIPINE 8.5 MG PO SCH ×2 (06:17→16:56)
[2016-12-16] MEDS: DOCUSATE SODIUM 100 MG CAP PO SCH ×2 (06:17→18:15)
[2016-12-16] MEDS ORDERED: traMADol 50 MG TAB PO PRN (08:10)
[2016-12-16] MEDS: POLYETHYLENE GLYCOL 17 GM PACKET PO SCH (09:00)
[2016-12-16] MEDS: CHOLECALCIFEROL 2,000 UNIT CAP PO SCH (09:03)
[2016-12-16] MEDS: FOLIC ACID 1 MG TAB PO SCH (09:03)
[2016-12-16] MEDS: CALCIUM/VITAMIN D (500/200) TAB PO SCH (09:03)
[2016-12-16] MEDS: LORATADINE 10 MG TAB GTB SCH (09:03)
[2016-12-16] MEDS: FERROUS SULFATE (EC) 325 MG TAB PO SCH (09:03)
[2016-12-16] MEDS: ASPIRIN 325 MG TAB PO SCH (09:03)
[2016-12-16] MEDS: VENLAFAXINE (XR) 75 MG CAP PO SCH (09:03)
[2016-12-16] MEDS: MULTIVITAMINS/MINERALS TAB PO SCH (09:03)
--- NOTE | 2016-12-16 11:37 | CONS ---
Date/Time of Note Date/Time of Note DATE: 12/16/16 TIME: 11:32 Consult Date/Type/Reason Admit Date/Time Dec 01, 2016 at 16:25 Type of Consultation: internal medicine/Pulm Subjective Patient reports pain not under control since d/c of [place]. She reports she is not able to sleep. Case d/w family member who is a pharmacist. Objective pulm-cta abd-soft sba ambulation with PT Vital Signs Date Time Temp Pulse Resp B/P Pulse Ox O2 Delivery O2 Flow Rate FiO2 12/15/16 16:41 85 18 144/67 96 Room Air 12/14/16 19:40 98.4 Intake and Output 12/15/16 12/15/16 12/16/16 15:00 23:00 07:00 Intake Total 720 ml 360 ml 1150 ml Balance 720 ml 360 ml 1150 ml Results/Medications Result Diagram: 12/13/16 1045 Medications Current Medications Ferrous Sulfate (Ferrous Sulfate (Ec)) 325 mg DAILY PO Last administered on 12/16 09:03; Admin Dose 325 MG; Start 12/02/16 at 09:00; Stop 12/31/16 at 08:59 Venlafaxine HCl (Effexor Xr) 150 mg DAILY PO Last administered on 12/16/16 09: 03; Admin Dose 150 MG; Start 12/02/16 at 09:00 Cholecalciferol (Vitamin D) 2,000 unit DAILY PO Last administered on 12/16/16 09:03; Admin Dose 2,000 UNIT; Start 12/02/16 at 09:00 Multivitamins/ Minerals (Theragran-M) 1 tab DAILY PO Last administered on 09:03; Admin Dose 1 TAB; Start 12/02/16 at 09:00 Calcium/Vitamin D (Oyster Shell/ Vit-D (500/200)) 1 tab DAILY PO Last administered on 12/16/16 09:03; Admin Dose 1 TAB; Start 12/02/16 at 09:00 Lorazepam (Ativan) 1 mg QHS PRN PO SLEEP Last administered on 12/15/16 20:35; Admin Dose 1 MG; Start 12/01/16 at 19:00 Nitroglycerin (Nitroglycerin (Sl Tab) 0.4 Mg) 1 tab Q5M PRN SL CHEST PAIN; Start 12/01/16 at 19:00 Pantoprazole (Protonix Tab) 40 mg DAILY@06 PO Last administered on 12/16/16 06: 17; Admin Dose 40 MG; Start 12/02/16 at 06:00 Aspirin (Aspirin) 325 mg DAILY PO Last administered on 12/16/16 09:03; Admin Dose 325 MG; Start 12/02/16 at 09:00 Folic Acid (Folic Acid) 1 mg DAILY PO Last administered on 12/16/16 09:03; Admin Dose 1 MG; Start 12/02/16 at 09:00 Senna (Senokot) 1 tab QHS PO Last administered on 12/13/16 20:47; Admin Dose 1 TAB; Start 12/01/16 at 21:00 Bisacodyl (Dulcolax Supp) 10 mg DAILY PRN [place] CONSTIPATION; Start 12/01/16 at 19 :00 Magnesium Hydroxide (Milk Of Mag) 30 ml BID PRN PO CONSTIPATION; Start at 19:00 Lactulose (Enulose) 20 gm DAILY PRN PO CONSTIPATION Last administered on 13:34; Admin Dose 20 GM; Start 12/01/16 at 19:00 Diphenhydramine HCl (Benadryl) 25 mg Q6H PRN PO ITCHING Last administered on 22:26; Admin Dose 25 MG; Start 12/01/16 at 21:00 Docusate Sodium (Colace) 100 mg Q12H PO Last administered on 12/14/16 06:29; Admin Dose 100 MG; Start 12/05/16 at 19:00 Loratadine (Claritin) 10 mg DAILY GTB Last administered on 12/16/16 09:03; Admin Dose 10 MG; Start 12/06/16 at 09:00 Patient Own Medication 1 ea BID@0630,1630 PO Last administered on 12/16/16 06: 17; Admin Dose 1 EA; Start 12/10/16 at 17:00 Polyethylene Glycol (Miralax) 17 gm DAILY PO ; Start 12/15/16 at 09:00 Tramadol HCl (Ultram) 100 mg Q6H PRN PO PAIN Last administered on 12/16/16 08: 22; Admin Dose 100 MG; Start 12/16/16 at 08:10 Assessment/Plan Additional Assessment/Plan Rehab- L femoral fracture-s/p IMN Patient has made steady gains with rehab program. Progress d/w family, and dereking renata Wednesday HTN-stable Anemia-continue to monitor ILDA VALADEZ MD Dec 16, 2016 11:37
--- NOTE | 2016-12-16 11:42 | CONS ---
Date/Time of Note Date/Time of Note DATE: 12/16/16 TIME: 11:41 Consult Date/Type/Reason Admit Date/Time Dec 01, 2016 at 16:25 Type of Consultation: internal medicine/Pulm Subjective Patient remains comfortable this morning continues physical therapy Objective Vital Signs Date Time Temp Pulse Resp B/P Pulse Ox O2 Delivery O2 Flow Rate FiO2 12/15/16 16:41 85 18 144/67 96 Room Air 12/14/16 19:40 98.4 Intake and Output 12/15/16 12/15/16 12/16/16 15:00 23:00 07:00 Intake Total 720 ml 360 ml 1150 ml Balance 720 ml 360 ml 1150 ml Exam GENERAL: Well-nourished well-developed lady comfortable at rest VITAL SIGNS: per chart NECK: Supple. No JVD or lymphadenopathy. CARDIAC EXAM: S1, S2. No added sounds or murmurs. CHEST: clear bilaterally, No added sounds, rales or wheezes ABDOMEN: Soft, nontender. No guarding or rebound. EXTREMITIES: No cyanosis, clubbing or edema. NEUROLOGIC: Generalized weakness. No focal deficits. Results/Medications Result Diagram: 12/13/16 1045 Medications Current Medications Ferrous Sulfate (Ferrous Sulfate (Ec)) 325 mg DAILY PO Last administered on 12/16 09:03; Admin Dose 325 MG; Start 12/02/16 at 09:00; Stop 12/31/16 at 08:59 Venlafaxine HCl (Effexor Xr) 150 mg DAILY PO Last administered on 12/16/16 09: 03; Admin Dose 150 MG; Start 12/02/16 at 09:00 Cholecalciferol (Vitamin D) 2,000 unit DAILY PO Last administered on 12/16/16 09:03; Admin Dose 2,000 UNIT; Start 12/02/16 at 09:00 Multivitamins/ Minerals (Theragran-M) 1 tab DAILY PO Last administered on 09:03; Admin Dose 1 TAB; Start 12/02/16 at 09:00 Calcium/Vitamin D (Oyster Shell/ Vit-D (500/200)) 1 tab DAILY PO Last administered on 12/16/16 09:03; Admin Dose 1 TAB; Start 12/02/16 at 09:00 Lorazepam (Ativan) 1 mg QHS PRN PO SLEEP Last administered on 12/15/16 20:35; Admin Dose 1 MG; Start 12/01/16 at 19:00 Nitroglycerin (Nitroglycerin (Sl Tab) 0.4 Mg) 1 tab Q5M PRN SL CHEST PAIN; Start 12/01/16 at 19:00 Pantoprazole (Protonix Tab) 40 mg DAILY@06 PO Last administered on 12/16/16 06: 17; Admin Dose 40 MG; Start 12/02/16 at 06:00 Aspirin (Aspirin) 325 mg DAILY PO Last administered on 12/16/16 09:03; Admin Dose 325 MG; Start 12/02/16 at 09:00 Folic Acid (Folic Acid) 1 mg DAILY PO Last administered on 12/16/16 09:03; Admin Dose 1 MG; Start 12/02/16 at 09:00 Senna (Senokot) 1 tab QHS PO Last administered on 12/13/16 20:47; Admin Dose 1 TAB; Start 12/01/16 at 21:00 Bisacodyl (Dulcolax Supp) 10 mg DAILY PRN [place] CONSTIPATION; Start 12/01/16 at 19 :00 Magnesium Hydroxide (Milk Of Mag) 30 ml BID PRN PO CONSTIPATION; Start at 19:00 Lactulose (Enulose) 20 gm DAILY PRN PO CONSTIPATION Last administered on 13:34; Admin Dose 20 GM; Start 12/01/16 at 19:00 Diphenhydramine HCl (Benadryl) 25 mg Q6H PRN PO ITCHING Last administered on 22:26; Admin Dose 25 MG; Start 12/01/16 at 21:00 Docusate Sodium (Colace) 100 mg Q12H PO Last administered on 12/14/16 06:29; Admin Dose 100 MG; Start 12/05/16 at 19:00 Loratadine (Claritin) 10 mg DAILY GTB Last administered on 12/16/16 09:03; Admin Dose 10 MG; Start 12/06/16 at 09:00 Patient Own Medication 1 ea BID@0630,1630 PO Last administered on 12/16/16 06: 17; Admin Dose 1 EA; Start 12/10/16 at 17:00 Polyethylene Glycol (Miralax) 17 gm DAILY PO ; Start 12/15/16 at 09:00 Tramadol HCl (Ultram) 100 mg Q6H PRN PO PAIN Last administered on 12/16/16t 08: 22; Admin Dose 100 MG; Start 12/16/16 at 08:10 Acetaminophen/ Hydrocodone Bitart ([place] (5/325)) 1 tab BID PRN PO SEVERE PAIN LEVEL 7-10; Start 12/16/16 at 12:00; Status UNV Assessment/Plan Chief Complaint/Hosp Course IMPRESSION 1. Recent fall. 2. Femoral fracture status post nailing. 3. History of anxiety disorder. 4. History of depression. 5. History of asthma, currently stable. 6. Postoperative anemia PLAN: 1. Continue physical therapy. Pain control 2. Continue DVT and GI prophylaxis. 3. Continue iron replacement. Monitor H&H 4. Continue bronchodilators as needed. 5. Psychology recommendations Problems: LEIGHA CALL [facility], [facility] Dec 16, 2016 11:41
--- NOTE | 2016-12-16 14:18 | PN ---
DATE: 12/16/2016 SUBJECTIVE: I visited Ms. King on 12/15/2016. At that time, still complaining of left hip dis comfort, but far less than what she has had according to her. Pain is still described as left hip, gnawing type of discomfort currently without radiations to her left ankle. Once again, describes a gnawing type of discomfort. States that she is somewhat better on Mobic since restarting it at 7.5 mg at bedtime. She has no side effects associated with Mobic, no nausea, vomiting, abdominal discom fort, diarrhea or constipation, dizziness, diplopia, disorientation. There is no past medical histo ry of excessive opioid use. OBJECTIVE: VITAL SIGNS: Afebrile, vital signs stable. NEUROLOGICAL: She is oriented x3. Cranial nerves II through XII are grossly intact. Motor and sen rai findings grossly within normal limits. ASSESSMENT AND PLAN: Postoperative left hip pain, bilateral knee pain secondary to osteoarthritis a nd right ankle pain secondary to osteoarthritis. Conservative management per recommendations is to use nonsteroidal anti-inflammatory medications and Ultram. Must be very careful in this lady who adv anced age and potential untoward side effects associated with opioids; emphasize encouragement, dist raction therapy and other non-medication adjuvant treatments for alleviation of her pain. Dictated By: MARIANA CHILDS MD, LP/CHARMAINE Conf#: [id number] DID#: [id number]
[2016-12-16] MEDS: traMADol 50 MG TAB PO SCH ×2 (15:16→20:39)
--- NOTE | 2016-12-16 15:19 | PN ---
DATE: 12/16/2016 SUBJECTIVE: This is a pain management followup note. Still having discomfort primarily when she amb ulates. Denies nausea, vomiting, chest pain. She states she is having multiple episodes of having to urinate, but she denies any dysuria associated with just frequency. States that she is somewhat anxious also. I did begin her on Mobic which was her medication of choice as an outpatient and bega n tramadol but increased the dose to 100 mg q.6h. OBJECTIVE: VITAL SIGNS: Blood pressure 144/67, pulse of 85 and regular, respirations of 18, temperature of 98. 4 degrees, 96% saturation on room air. HEENT: She is normocephalic and atraumatic. Anicteric, acyanotic. NEUROLOGICAL: She is oriented x3. Cranial nerves II through XII are grossly intact. Motor and sen rai findings grossly within normal limits. ASSESSMENT AND PLAN: 1. Postop left hip total hip repair. 2. Pain syndrome prior to hospitalization, osteoarthritis of both knees, right ankle postop pain. Will continue to encourage her. We will change her Ultram from 50 q.6h. p.r.n. to 100 q.6h. sched uled. Follow and encourage her. Emphasize ambulation and I believe this lady will need to have muc h encouragement. She was on anxiolytics as an outpatient. She is somewhat programmed at this point may be difficult to control her pain management. Therefore, I recommend caution and question her u se of opioids. Dictated By: MARIANA CHILDS MD, LP/CHARMAINE Conf#: [id number] DID#: [id number]
[2016-12-16 16:57] VITALS: BP 149/62; PULSE 78; RESP 18
[2016-12-16 17:14] LABS: ADD UMIC YES; URINE BILIRUBIN (Dip) NEGATIVE (NEGATIVE); URINE BLOOD (Dip) 1+ (NEGATIVE); URINE COLOR LT. YELLOW (YELLOW); URINE GLUCOSE (Dip) NEGATIVE (NEGATIVE); URINE KETONES (Dip) NEGATIVE (NEGATIVE); URINE LEUKOCYTE ESTERASE (Dip) NEGATIVE (NEGATIVE); URINE NITRITE (Dip) NEGATIVE (NEGATIVE); URINE TOTAL PROTEIN (Dip) NEGATIVE (NEGATIVE); URINE UROBILINOGEN (Dip) 0.2 E.U./dL (0.1-1.0)
[2016-12-16] MEDS: MELOXICAM 7.5 MG TAB PO SCH (17:27)
[2016-12-16 17:30] LABS: BACTERIA,URINE FEW
--- NOTE | 2016-12-16 19:30 | PN ---
DATE: PSYCHOLOGY -- INDIVIDUAL SESSION -- [id number]: This is a followup on the patient who was seen last week. The patient is prepared to be discharged on Wednesday. The patient is feeling better and feels like she has made progress in the program. Th e patient reports that she still has difficulty sleeping and is very anxious about this, but otherwi se is feeling better. Her mood has improved. I worked with the patient to continue to help her chloé l with her frustration and her mood. I encouraged her to keep on working on her emotional and medic al problems. Dictated By: KAYCE GOYAL PHD RK/CHARMAINE Conf#: [id number] DID#: [id number] CC: ILDA RUIZ MD;*[facility]*
[2016-12-16 20:17] VITALS: BP 137/68; RESP 18
[2016-12-16] MEDS: SENNA TAB PO SCH (20:38)
[2016-12-17] MEDS: traMADol 50 MG TAB PO SCH ×4 (03:12→20:22)
[2016-12-17] MEDS: PANTOPRAZOLE (EC) 40 MG TAB PO SCH (06:15)
[2016-12-17] MEDS: NISOLDIPINE 8.5 MG PO SCH ×2 (06:15→16:52)
[2016-12-17] MEDS: DOCUSATE SODIUM 100 MG CAP PO SCH ×2 (06:16→18:32)
[2016-12-17 07:30] VITALS: BP 149/70; RESP 18
[2016-12-17] MEDS: FERROUS SULFATE (EC) 325 MG TAB PO SCH (08:58)
[2016-12-17] MEDS: POLYETHYLENE GLYCOL 17 GM PACKET PO SCH (08:58)
[2016-12-17] MEDS: CALCIUM/VITAMIN D (500/200) TAB PO SCH (08:59)
[2016-12-17] MEDS: LORATADINE 10 MG TAB GTB SCH (08:59)
[2016-12-17] MEDS: FOLIC ACID 1 MG TAB PO SCH (08:59)
[2016-12-17] MEDS: CHOLECALCIFEROL 2,000 UNIT CAP PO SCH (08:59)
[2016-12-17] MEDS: ASPIRIN 325 MG TAB PO SCH (08:59)
[2016-12-17] MEDS: VENLAFAXINE (XR) 75 MG CAP PO SCH (08:59)
[2016-12-17] MEDS: MULTIVITAMINS/MINERALS TAB PO SCH (09:00)
--- NOTE | 2016-12-17 11:55 | PN ---
DATE: 12/17/2016 PAIN MANAGEMENT PROGRESS NOTE SUBJECTIVE: Vaughn states that she is feeling better today. She was not up last night urinating con tinually. Denies chest pain, denies nausea or vomiting. She states her left hip fracture surgical site is not as uncomfortable as it has been. She has been ambulating with assistance and seems to be improving. Pain was described, left hip, with radiations into her left knee, a gnawing type of dis comfort, without radiation into her ankle. She describes bilateral knee pain and right ankle pain, which is old pain that she had prior to this hospitalization. She was not controlled well prior to hospitalization for her osteoarthritic changes. While here she has responded well to institution of current medications. It took some time before her levels achieved therapeutic, 4 half-lives, and s he seems to be better at this time. OBJECTIVE: VITAL SIGNS: Blood pressure 137/68, pulse of 80 and regular, respirations of 18, temperature of 98. 4 degrees, 95% saturations on room air. HEENT: She is normocephalic, atraumatic. Anicteric, acyanotic on examination. NEUROLOGICAL EXAMINATION: She is oriented x3. Cranial nerves II through XII are grossly intact. M otor and sensory findings are grossly within normal limits. ASSESSMENT AND PLAN: Pain syndrome postop left hip replacement, status post fracture of left hip se condary to a mechanical fall. Will continue with the current orders. Lots of encouragement. Patie nt is to continue to ambulate and participate with physical therapy and occupational therapy. She n eeds much support. I believe there is an underlying element of anxiety, which is understandable, po st fall and requiring total hip repair. Dictated By: MARIANA CHILDS MD, LP/NTS Conf#: [id number] DID#: [id number]
[2016-12-17] MEDS: HYDROCODONE/APAP (5/325) TAB PO PRN (11:57)
--- NOTE | 2016-12-17 13:09 | CONS ---
Date/Time of Note Date/Time of Note DATE: 12/17/16 TIME: 13:08 Consult Date/Type/Reason Admit Date/Time Dec 01, 2016 at 16:25 Type of Consultation: internal medicine/Pulm Subjective Patient comfortable no new events Objective Vital Signs Date Time Temp Pulse Resp B/P Pulse Ox O2 Delivery O2 Flow Rate FiO2 12/17/16 07:30 98.3 77 18 149/70 93 12/16/16 16:57 Room Air Intake and Output 12/16/16 12/16/16 12/17/16 15:00 23:00 07:00 Intake Total 1200 ml 1320 ml 200 ml Output Total 350 ml Balance 1200 ml 1320 ml -150 ml Results/Medications Result Diagram: 12/13/16 1045 Results 24 hrs Laboratory Tests Test 12/16/16 16:00 Urine Color LT. YELLOW Urine Clarity CLEAR Urine pH 5.5 Urine Specific [place] <=1.005 L Urine Ketones NEGATIVE Urine Nitrite NEGATIVE Urine Bilirubin NEGATIVE Urine Urobilinogen 0.2 E.U./dL Urine Leukocyte Esterase NEGATIVE Urine Microscopic RBC 2-5 Urine Microscopic WBC 0-2 Urine Epithelial Cells FEW Urine Bacteria FEW Urine Hemoglobin 1+ H Urine Glucose NEGATIVE Urine Total Protein NEGATIVE Medications Current Medications Ferrous Sulfate (Ferrous Sulfate (Ec)) 325 mg DAILY PO Last administered on 12/17 08:58; Admin Dose 325 MG; Start 12/02/16 at 09:00; Stop 12/31/16 at 08:59 Venlafaxine HCl (Effexor Xr) 150 mg DAILY PO Last administered on 12/17/16 08: 59; Admin Dose 150 MG; Start 12/02/16 at 09:00 Cholecalciferol (Vitamin D) 2,000 unit DAILY PO Last administered on 12/17/16 08:59; Admin Dose 2,000 UNIT; Start 12/02/16 at 09:00 Multivitamins/ Minerals (Theragran-M) 1 tab DAILY PO Last administered on 09:00; Admin Dose 1 TAB; Start 12/02/16 at 09:00 Calcium/Vitamin D (Oyster Shell/ Vit-D (500/200)) 1 tab DAILY PO Last administered on 12/17/16 08:59; Admin Dose 1 TAB; Start 12/02/16 at 09:00 Lorazepam (Ativan) 1 mg QHS PRN PO SLEEP Last administered on 12/15/16 20:35; Admin Dose 1 MG; Start 12/01/16 at 19:00 Nitroglycerin (Nitroglycerin (Sl Tab) 0.4 Mg) 1 tab Q5M PRN SL CHEST PAIN; Start 12/01/16 at 19:00 Pantoprazole (Protonix Tab) 40 mg DAILY@06 PO Last administered on 12/17/16 06: 15; Admin Dose 40 MG; Start 12/02/16 at 06:00 Aspirin (Aspirin) 325 mg DAILY PO Last administered on 12/17/16 08:59; Admin Dose 325 MG; Start 12/02/16 at 09:00 Folic Acid (Folic Acid) 1 mg DAILY PO Last administered on 12/17/16 08:59; Admin Dose 1 MG; Start 12/02/16 at 09:00 Senna (Senokot) 1 tab QHS PO Last administered on 12/13/16 20:47; Admin Dose 1 TAB; Start 12/01/16 at 21:00 Bisacodyl (Dulcolax Supp) 10 mg DAILY PRN [place] CONSTIPATION; Start 12/01/16 at 19 :00 Magnesium Hydroxide (Milk Of Mag) 30 ml BID PRN PO CONSTIPATION; Start at 19:00 Lactulose (Enulose) 20 gm DAILY PRN PO CONSTIPATION Last administered on 13:34; Admin Dose 20 GM; Start 12/01/16 at 19:00 Diphenhydramine HCl (Benadryl) 25 mg Q6H PRN PO ITCHING Last administered on 22:26; Admin Dose 25 MG; Start 12/01/16 at 21:00 Docusate Sodium (Colace) 100 mg Q12H PO Last administered on 12/14/16 06:29; Admin Dose 100 MG; Start 12/05/16 at 19:00 Loratadine (Claritin) 10 mg DAILY GTB Last administered on 12/17/16 08:59; Admin Dose 10 MG; Start 12/06/16 at 09:00 Patient Own Medication 1 ea BID@0630,1630 PO Last administered on 12/17/16 06: 15; Admin Dose 1 EA; Start 12/10/16 at 17:00 Polyethylene Glycol (Miralax) 17 gm DAILY PO Last administered on 12/17/16 08: 58; Admin Dose 17 GM; Start 12/15/16 at 09:00 Acetaminophen/ Hydrocodone Bitart ([place] (5/325)) 1 tab BID PRN PO SEVERE PAIN LEVEL 7-10 Last administered on 12/17/16 11:57; Admin Dose 1 TAB; Start 12/16/16 at 12:00 Tramadol HCl (Ultram) 100 mg Q6H PO Last administered on 12/17/16 09:00; Admin Dose 100 MG; Start 12/16/16 at 15:00 Assessment/Plan Chief Complaint/Hosp Course IMPRESSION 1. Recent fall. 2. Femoral fracture status post nailing. 3. History of anxiety disorder. 4. History of depression. 5. History of asthma, currently stable. 6. Postoperative anemia PLAN: 1. Continue physical therapy. Pain control 2. Continue DVT and GI prophylaxis. 3. Continue iron replacement. Monitor H&H 4. Continue bronchodilators as needed. 5. Adjustment of medications for depression Problems: LEIGHA CALL MD, [facility] Dec 17, 2016 13:09
--- NOTE | 2016-12-17 13:48 | PN ---
Date/Time of Note Date/Time of Note DATE: 12/17/16 TIME: 13:45 Assessment/Plan VTE Prophylaxis VTE Prophylaxis Intervention: other (ASA) Lines/Catheters Urinary Cath still in place: No Assessment/Plan Assessment/Plan 1. Left closed midshaft femur fracture s/p intramedullary nailing. With impaired mobility/gait/ADLs. Continue PT/OT. Now SPV for toilet transfers, CGA for tub/shower transfers. Modified independent for toileting and grooming. 2. Acute post operative pain with chronic pain syndrome. Pain management consultation appreciated, has adjusted medications, with improvement in pain. 3. Anemia. On iron supplementation. Monitor hemoglobin/hematocrit, improving on last labs.. 4. HTN. Monitor BP. Internal medicine managing. 5. GERD. Continue protonix. 6. History of anxiety/depression. Continue medical management. Psychology following. 7. Asthma. Stable. Continue breathing treatments as needed. Subjective 24 Hr Interval Summary Free Text/Dictation Rehab progress note Subjective: Reports pain overall improving with adjustments in medication. ROS: Denies constipation, no dysuria, no chills, no abdominal pain, no chest pain, no shortness of breath. Exam/Review of Systems Vital Signs Vitals Vital Signs Date Time Temp Pulse Resp B/P Pulse Ox O2 Delivery O2 Flow Rate FiO2 12/17/16 07:30 98.3 77 18 149/70 93 12/16/16 16:57 Room Air Intake and Output 12/16/16 12/16/16 12/17/16 14:59 22:59 06:59 Intake Total 1200 ml 1320 ml 200 ml Output Total 350 ml Balance 1200 ml 1320 ml -150 ml Exam General: Awake, alert, no acute distress CV: Regular rate, s1s2 Lungs: Clear to auscultation, no wheezing Abdomen soft, nontender Extremities: No cyanosis, calves nontender Neuro: No new focal changes. Follows simple commands. Results Result Diagram: 12/13/16 1045 Results 24 hrs Laboratory Tests Test 12/16/16 16:00 Urine Color LT. YELLOW Urine Clarity CLEAR Urine pH 5.5 Urine Specific [place] <=1.005 L Urine Ketones NEGATIVE Urine Nitrite NEGATIVE Urine Bilirubin NEGATIVE Urine Urobilinogen 0.2 E.U./dL Urine Leukocyte Esterase NEGATIVE Urine Microscopic RBC 2-5 Urine Microscopic WBC 0-2 Urine Epithelial Cells FEW Urine Bacteria FEW Urine Hemoglobin 1+ H Urine Glucose NEGATIVE Urine Total Protein NEGATIVE Medications Medications Current Medications Ferrous Sulfate (Ferrous Sulfate (Ec)) 325 mg DAILY PO Last administered on 12/17 08:58; Admin Dose 325 MG; Start 12/02/16 at 09:00; Stop 12/31/16 at 08:59 Venlafaxine HCl (Effexor Xr) 150 mg DAILY PO Last administered on 12/17/16 08: 59; Admin Dose 150 MG; Start 12/02/16 at 09:00 Cholecalciferol (Vitamin D) 2,000 unit DAILY PO Last administered on 12/17/16 08:59; Admin Dose 2,000 UNIT; Start 12/02/16 at 09:00 Multivitamins/ Minerals (Theragran-M) 1 tab DAILY PO Last administered on 09:00; Admin Dose 1 TAB; Start 12/02/16 at 09:00 Calcium/Vitamin D (Oyster Shell/ Vit-D (500/200)) 1 tab DAILY PO Last administered on 12/17/16 08:59; Admin Dose 1 TAB; Start 12/02/16 at 09:00 Lorazepam (Ativan) 1 mg QHS PRN PO SLEEP Last administered on 12/15/16 20:35; Admin Dose 1 MG; Start 12/01/16 at 19:00 Nitroglycerin (Nitroglycerin (Sl Tab) 0.4 Mg) 1 tab Q5M PRN [place] CHEST PAIN; Start 12/01/16 at 19:00 Pantoprazole (Protonix Tab) 40 mg DAILY@06 PO Last administered on 12/17/16 06: 15; Admin Dose 40 MG; Start 12/02/16 at 06:00 Aspirin (Aspirin) 325 mg DAILY PO Last administered on 12/17/16 08:59; Admin Dose 325 MG; Start 12/02/16 at 09:00 Folic Acid (Folic Acid) 1 mg DAILY PO Last administered on 12/17/16 08:59; Admin Dose 1 MG; Start 12/02/16 at 09:00 Senna (Senokot) 1 tab QHS PO Last administered on 12/13/16 20:47; Admin Dose 1 TAB; Start 12/01/16 at 21:00 Bisacodyl (Dulcolax Supp) 10 mg DAILY PRN [place] CONSTIPATION; Start 12/01/16 at 19 :00 Magnesium Hydroxide (Milk Of Mag) 30 ml BID PRN PO CONSTIPATION; Start at 19:00 Lactulose (Enulose) 20 gm DAILY PRN PO CONSTIPATION Last administered on 13:34; Admin Dose 20 GM; Start 12/01/16 at 19:00 Diphenhydramine HCl (Benadryl) 25 mg Q6H PRN PO ITCHING Last administered on 22:26; Admin Dose 25 MG; Start 12/01/16 at 21:00 Docusate Sodium (Colace) 100 mg Q12H PO Last administered on 12/14/16 06:29; Admin Dose 100 MG; Start 12/05/16 at 19:00 Loratadine (Claritin) 10 mg DAILY GTB Last administered on 12/17/16 08:59; Admin Dose 10 MG; Start 12/06/16 at 09:00 Patient Own Medication 1 ea BID@0630,1630 PO Last administered on 12/17/16 06: 15; Admin Dose 1 EA; Start 12/10/16 at 17:00 Polyethylene Glycol (Miralax) 17 gm DAILY PO Last administered on 12/17/16 08: 58; Admin Dose 17 GM; Start 12/15/16 at 09:00 Acetaminophen/ Hydrocodone Bitart ([place] (5/325)) 1 tab BID PRN PO SEVERE PAIN LEVEL 7-10 Last administered on 12/17/16 11:57; Admin Dose 1 TAB; Start 12/16/16 at 12:00 Tramadol HCl (Ultram) 100 mg Q6H PO Last administered on 12/17/16 09:00; Admin Dose 100 MG; Start 12/16/16 at 15:00 EMEKA MORALES Dec 17, 2016 13:48
--- NOTE | 2016-12-17 14:01 | RADRPT ---
PROCEDURE: US bilateral lower extremity veins. CLINICAL INDICATION: Bilateral leg pain and swelling. TECHNIQUE: Multiple longitudinal and transverse images of the bilateral lower extremity veins were obtained with turcios scale and color Doppler imaging. The common femoral vein, femoral vein, and popl iteal vein were evaluated. 2D grayscale measurements with compression sonography, color Doppler, and pulsed Doppler with augmentation. COMPARISON: No prior studies are available for comparison. FINDINGS: The bilateral common femoral, femoral and popliteal veins are normally compressible throughout. Col or flow demonstrates normal filling of the vessels. Normal waveforms are visualized and there is no rmal response to augmentation. IMPRESSION: 1. No evidence of deep vein thrombosis involving either lower extremity. RPTAT: QQ .Chris Malloy MD, MD Date Time Electronically viewed and signed by .Chris Malloy MD, on 12/17/2016 14:01 .R/
[2016-12-17] MEDS: DIPHENHYDRAMINE 25 MG CAP PO PRN (16:53)
[2016-12-17] MEDS: MELOXICAM 7.5 MG TAB PO SCH (16:53)
[2016-12-17] MEDS ORDERED: POLYETHYLENE GLYCOL 17 GM PACKET PO PRN (18:30)
[2016-12-17 20:00] VITALS: BP_SYST 145; BP_SYST 157; BP_DIAS 66; BP_DIAS 70; RESP 18
[2016-12-17] MEDS: SENNA TAB PO SCH (20:23)
[2016-12-17] MEDS: LORAZEPAM 1 MG TAB PO PRN (21:19)
[2016-12-18] MEDS: traMADol 50 MG TAB PO SCH ×4 (02:42→20:30)
[2016-12-18] MEDS: DOCUSATE SODIUM 100 MG CAP PO SCH ×2 (07:00→19:00)
[2016-12-18] MEDS: PANTOPRAZOLE (EC) 40 MG TAB PO SCH (07:29)
[2016-12-18] MEDS: NISOLDIPINE 8.5 MG PO SCH ×2 (07:29→16:34)
[2016-12-18] MEDS: ASPIRIN 325 MG TAB PO SCH (08:39)
[2016-12-18] MEDS: FOLIC ACID 1 MG TAB PO SCH (08:39)
[2016-12-18] MEDS: CHOLECALCIFEROL 2,000 UNIT CAP PO SCH (08:39)
[2016-12-18] MEDS: VENLAFAXINE (XR) 75 MG CAP PO SCH (08:39)
[2016-12-18] MEDS: CALCIUM/VITAMIN D (500/200) TAB PO SCH (08:40)
[2016-12-18] MEDS: FERROUS SULFATE (EC) 325 MG TAB PO SCH (08:42)
[2016-12-18] MEDS: MULTIVITAMINS/MINERALS TAB PO SCH (08:42)
[2016-12-18] MEDS: LORATADINE 10 MG TAB GTB SCH (08:44)
--- NOTE | 2016-12-18 11:03 | PN ---
Date/Time of Note Date/Time of Note DATE: 12/18/16 TIME: 10:59 Assessment/Plan VTE Prophylaxis VTE Prophylaxis Intervention: other (ASA) Lines/Catheters Urinary Cath still in place: No Assessment/Plan Assessment/Plan 1. Left closed midshaft femur fracture s/p intramedullary nailing. With impaired mobility/gait/ADLs. Continue PT/OT. Modified independent for bed mobility and transfers. 2. Acute post operative pain with chronic pain syndrome. Pain overall improving , pain management team following. 3. Anemia. On iron supplementation. Monitor hemoglobin/hematocrit. 4. HTN. Monitor BP. Internal medicine managing. 5. GERD. Continue protonix. 6. History of anxiety/depression. Continue management per psych. 7. Asthma. Stable. Continue breathing treatments as needed. 8. Discharge planning underway to home with 24hr assist with family tomorrow with home health PT/OT. 35 minutes spent on encounter, greater than 50% face to face with patient, counseling and discussion of discharge planning, and in coordination of care, including discussion with internal medicine for discharge planning. Subjective 24 Hr Interval Summary Free Text/Dictation Rehab progress note Subjective: No acute complains. Overall her pain is improving. Currently minimal pain in left hip region. ROS: Denies chest pain, no shortness of breath, no abdominal pain, no nausea, no vomiting, no chills, no dysuria, no urinary frequency. Exam/Review of Systems Vital Signs Vitals Vital Signs Date Time Temp Pulse Resp B/P Pulse Ox O2 Delivery O2 Flow Rate FiO2 12/17/16 20:00 98.2 91 18 157/70 91 12/16/16 16:57 Room Air Intake and Output 12/17/16 12/17/16 12/18/16 15:00 23:00 07:00 Intake Total 820 ml 360 ml Balance 820 ml 360 ml Exam General: Awake, alert, no acute distress CV: Regular rate, s1s2 Lungs: Symmetrical air entry bilaterally, no wheezing Abdomen soft, nontender, bowel sounds present Extremities: No cyanosis, left hip surgical site c/d/i healing Neuro: No new focal changes. Follows simple commands. Medications Medications Current Medications Ferrous Sulfate (Ferrous Sulfate (Ec)) 325 mg DAILY PO Last administered on 12/18t 08:42; Admin Dose 325 MG; Start 12/02/16 at 09:00; Stop 12/31/16 at 08:59 Venlafaxine HCl (Effexor Xr) 150 mg DAILY PO Last administered on 12/18/16 08: 39; Admin Dose 150 MG; Start 12/02/16 at 09:00 Cholecalciferol (Vitamin D) 2,000 unit DAILY PO Last administered on 12/18/16 08:39; Admin Dose 2,000 UNIT; Start 12/02/16 at 09:00 Multivitamins/ Minerals (Theragran-M) 1 tab DAILY PO Last administered on 08:42; Admin Dose 1 TAB; Start 12/02/16 at 09:00 Calcium/Vitamin D (Oyster Shell/ Vit-D (500/200)) 1 tab DAILY PO Last administered on 12/18/16 08:40; Admin Dose 1 TAB; Start 12/02/16 at 09:00 Lorazepam (Ativan) 1 mg QHS PRN PO SLEEP Last administered on 12/17/16 21:19; Admin Dose 1 MG; Start 12/01/16 at 19:00 Nitroglycerin (Nitroglycerin (Sl Tab) 0.4 Mg) 1 tab Q5M PRN SL CHEST PAIN; Start 12/01/16 at 19:00 Pantoprazole (Protonix Tab) 40 mg DAILY@06 PO Last administered on 12/18/16 07: 29; Admin Dose 40 MG; Start 12/02/16 at 06:00 Aspirin (Aspirin) 325 mg DAILY PO Last administered on 12/18/16 08:39; Admin Dose 325 MG; Start 12/02/16 at 09:00 Folic Acid (Folic Acid) 1 mg DAILY PO Last administered on 12/18/16 08:39; Admin Dose 1 MG; Start 12/02/16 at 09:00 Senna (Senokot) 1 tab QHS PO Last administered on 12/13/16 20:47; Admin Dose 1 TAB; Start 12/01/16 at 21:00 Bisacodyl (Dulcolax Supp) 10 mg DAILY PRN [place] CONSTIPATION; Start 12/01/16 at 19 :00 Magnesium Hydroxide (Milk Of Mag) 30 ml BID PRN PO CONSTIPATION; Start at 19:00 Lactulose (Enulose) 20 gm DAILY PRN PO CONSTIPATION Last administered on 13:34; Admin Dose 20 GM; Start 12/01/16 at 19:00 Diphenhydramine HCl (Benadryl) 25 mg Q6H PRN PO ITCHING Last administered on 16:53; Admin Dose 25 MG; Start 12/01/16 at 21:00 Docusate Sodium (Colace) 100 mg Q12H PO Last administered on 12/14/16 06:29; Admin Dose 100 MG; Start 12/05/16 at 19:00 Loratadine (Claritin) 10 mg DAILY GTB Last administered on 12/18/16 08:44; Admin Dose 10 MG; Start 12/06/16 at 09:00 Patient Own Medication 1 ea BID@0630,1630 PO Last administered on 12/18/16 07: 29; Admin Dose 1 EA; Start 12/10/16 at 17:00 Acetaminophen/ Hydrocodone Bitart ([place] (5/325)) 1 tab BID PRN PO SEVERE PAIN LEVEL 7-10 Last administered on 12/17/16 11:57; Admin Dose 1 TAB; Start 12/16/16 at 12:00 Tramadol HCl (Ultram) 100 mg Q6H PO Last administered on 12/18/16 08:40; Admin Dose 100 MG; Start 12/16/16 at 15:00 Polyethylene Glycol (Miralax) 17 gm DAILY PRN PO CONSTIPATION; Start 12/17/16 at 18:30 EMEKA MORALES Dec 18, 2016 11:03
[2016-12-18] MEDS: HYDROCODONE/APAP (5/325) TAB PO PRN (11:20)
--- NOTE | 2016-12-18 14:44 | CONS ---
Date/Time of Note Date/Time of Note DATE: 12/18/16 TIME: 14:43 Consult Date/Type/Reason Admit Date/Time Dec 01, 2016 at 16:25 Type of Consultation: internal medicine/Pulm Subjective Patient comfortable this morning no new events Objective Vital Signs Date Time Temp Pulse Resp B/P Pulse Ox O2 Delivery O2 Flow Rate FiO2 12/17/16 20:00 98.2 91 18 157/70 91 12/16/16 16:57 Room Air Intake and Output 12/17/16 12/17/16 12/18/16 15:00 23:00 07:00 Intake Total 820 ml 360 ml Balance 820 ml 360 ml Exam GENERAL: Well-nourished well-developed lady comfortable at rest VITAL SIGNS: per chart NECK: Supple. No JVD or lymphadenopathy. CARDIAC EXAM: S1, S2. No added sounds or murmurs. CHEST: clear bilaterally, No added sounds, rales or wheezes ABDOMEN: Soft, nontender. No guarding or rebound. EXTREMITIES: No cyanosis, clubbing or edema. NEUROLOGIC: Generalized weakness. No focal deficits. Results/Medications Medications Current Medications Ferrous Sulfate (Ferrous Sulfate (Ec)) 325 mg DAILY PO Last administered on 12/18 08:42; Admin Dose 325 MG; Start 12/02/16 at 09:00; Stop 12/31/16 at 08:59 Venlafaxine HCl (Effexor Xr) 150 mg DAILY PO Last administered on 12/18/16 08: 39; Admin Dose 150 MG; Start 12/02/16 at 09:00 Cholecalciferol (Vitamin D) 2,000 unit DAILY PO Last administered on 12/18/16 08:39; Admin Dose 2,000 UNIT; Start 12/02/16 at 09:00 Multivitamins/ Minerals (Theragran-M) 1 tab DAILY PO Last administered on 08:42; Admin Dose 1 TAB; Start 12/02/16 at 09:00 Calcium/Vitamin D (Oyster Shell/ Vit-D (500/200)) 1 tab DAILY PO Last administered on 12/18/16 08:40; Admin Dose 1 TAB; Start 12/02/16 at 09:00 Lorazepam (Ativan) 1 mg QHS PRN PO SLEEP Last administered on 12/17/16 21:19; Admin Dose 1 MG; Start 12/01/16 at 19:00 Nitroglycerin (Nitroglycerin (Sl Tab) 0.4 Mg) 1 tab Q5M PRN SL CHEST PAIN; Start 12/01/16 at 19:00 Pantoprazole (Protonix Tab) 40 mg DAILY@06 PO Last administered on 12/18/16 07: 29; Admin Dose 40 MG; Start 12/02/16 at 06:00 Aspirin (Aspirin) 325 mg DAILY PO Last administered on 12/18/16 08:39; Admin Dose 325 MG; Start 12/02/16 at 09:00 Folic Acid (Folic Acid) 1 mg DAILY PO Last administered on 12/18/16 08:39; Admin Dose 1 MG; Start 12/02/16 at 09:00 Senna (Senokot) 1 tab QHS PO Last administered on 12/13/16 20:47; Admin Dose 1 TAB; Start 12/01/16 at 21:00 Bisacodyl (Dulcolax Supp) 10 mg DAILY PRN [place] CONSTIPATION; Start 12/01/16 at 19 :00 Magnesium Hydroxide (Milk Of Mag) 30 ml BID PRN PO CONSTIPATION; Start at 19:00 Lactulose (Enulose) 20 gm DAILY PRN PO CONSTIPATION Last administered on 13:34; Admin Dose 20 GM; Start 12/01/16 at 19:00 Diphenhydramine HCl (Benadryl) 25 mg Q6H PRN PO ITCHING Last administered on 16:53; Admin Dose 25 MG; Start 12/01/16 at 21:00 Docusate Sodium (Colace) 100 mg Q12H PO Last administered on 12/14/16 06:29; Admin Dose 100 MG; Start 12/05/16 at 19:00 Loratadine (Claritin) 10 mg DAILY GTB Last administered on 12/18/16 08:44; Admin Dose 10 MG; Start 12/06/16 at 09:00 Patient Own Medication 1 ea BID@0630,1630 PO Last administered on 12/18/16 07: 29; Admin Dose 1 EA; Start 12/10/16 at 17:00 Acetaminophen/ Hydrocodone Bitart ([place] (5/325)) 1 tab BID PRN PO SEVERE PAIN LEVEL 7-10 Last administered on 12/18/16 11:20; Admin Dose 1 TAB; Start 12/16/16 at 12:00 Tramadol HCl (Ultram) 100 mg Q6H PO Last administered on 12/18/16 08:40; Admin Dose 100 MG; Start 12/16/16 at 15:00 Polyethylene Glycol (Miralax) 17 gm DAILY PRN PO CONSTIPATION; Start 12/17/16 at 18:30 Assessment/Plan Chief Complaint/Hosp Course IMPRESSION 1. Recent fall. 2. Femoral fracture status post nailing. 3. History of anxiety disorder. 4. History of depression. 5. History of asthma, currently stable. 6. Postoperative anemia PLAN: 1. Continue physical therapy. Pain control 2. Continue DVT and GI prophylaxis. 3. Continue iron replacement. Monitor H&H 4. Continue bronchodilators as needed. 5. Adjustment of medications for depression Anticipate discharge tomorrow Problems: LEIGHA CALL MD, [facility] Dec 18, 2016 14:44
[2016-12-18] MEDS: MELOXICAM 7.5 MG TAB PO SCH (17:20)
[2016-12-18] MEDS: DIPHENHYDRAMINE 25 MG CAP PO PRN (20:29)
[2016-12-18] MEDS: LORAZEPAM 1 MG TAB PO PRN (20:29)
[2016-12-18] MEDS: SENNA TAB PO SCH (20:30)
[2016-12-19] MEDS: traMADol 50 MG TAB PO SCH ×3 (03:14→14:05)
[2016-12-19] MEDS: PANTOPRAZOLE (EC) 40 MG TAB PO SCH (06:00)
[2016-12-19] MEDS: NISOLDIPINE 8.5 MG PO SCH (06:30)
[2016-12-19] MEDS: DOCUSATE SODIUM 100 MG CAP PO SCH (07:00)
[2016-12-19] MEDS: FOLIC ACID 1 MG TAB PO SCH (09:02)
[2016-12-19] MEDS: CHOLECALCIFEROL 2,000 UNIT CAP PO SCH (09:03)
[2016-12-19] MEDS: VENLAFAXINE (XR) 75 MG CAP PO SCH (09:03)
[2016-12-19] MEDS: CALCIUM/VITAMIN D (500/200) TAB PO SCH (09:03)
[2016-12-19] MEDS: LORATADINE 10 MG TAB GTB SCH (09:03)
[2016-12-19] MEDS: ASPIRIN 325 MG TAB PO SCH (09:03)
[2016-12-19] MEDS: FERROUS SULFATE (EC) 325 MG TAB PO SCH (09:03)
[2016-12-19] MEDS: MULTIVITAMINS/MINERALS TAB PO SCH (09:04)
[2016-12-19 12:04] LABS: ADD UMIC YES; URINE BILIRUBIN (Dip) NEGATIVE (NEGATIVE); URINE BLOOD (Dip) 1+ (NEGATIVE); URINE COLOR LT. YELLOW (YELLOW); URINE GLUCOSE (Dip) NEGATIVE (NEGATIVE); URINE KETONES (Dip) NEGATIVE (NEGATIVE); URINE LEUKOCYTE ESTERASE (Dip) TRACE (NEGATIVE); URINE NITRITE (Dip) NEGATIVE (NEGATIVE); URINE TOTAL PROTEIN (Dip) NEGATIVE (NEGATIVE); URINE UROBILINOGEN (Dip) 0.2 E.U./dL (0.1-1.0)
[2016-12-19 12:43] LABS: SQUAMOUS EPITHELIAL CELL,UR MODERATE
== END 2016-12-19 14:00 | disposition home health service (06) | DRG 561 ==
LOC: VRC 16:25
PROVIDERS: ADMIT Physical Medicine & Rehabilitation; ATTEND Internal Medicine Pulmonary Disease
DX: S72.002D Fracture of unspecified part of neck of left femur, subsequent encounter for closed fracture with routine healing (principal); I10 Essential (primary) hypertension; D64.9 Anemia, unspecified; K21.9 Gastro-esophageal reflux disease without esophagitis; F41.8 Other specified anxiety disorders; Z74.09 Other reduced mobility; F32.9 Major depressive disorder, single episode, unspecified; F06.31 Mood disorder due to known physiological condition with depressive features; Z91.81 History of falling; J45.909 Unspecified asthma, uncomplicated; G89.18 Other acute postprocedural pain; K59.00 Constipation, unspecified; M17.0 Bilateral primary osteoarthritis of knee; M19.071 Primary osteoarthritis, right ankle and foot
CPT/HCPCS: 80048; 80053; 81001; 81003; 83735; 84100; 85025; 87081; 87086; 93970; 94640; 94664; 97110; 97112; 97116; 97150; 97163; 97167; 97530; 97535; J1170; J3420

== ENCOUNTER 2017-12-10 17:13 | Emergency (ER) | END 2017-12-10 18:52 | disposition home or self-care (01) ==

== ENCOUNTER 2018-06-27 13:57 | Emergency (ER) | END 2018-06-27 16:12 | disposition home or self-care (01) ==